=== PATIENT | female | born 1955 | race Caucasian/White ===

== ENCOUNTER 2016-05-02 08:14 | Emergency (ER) | payer OTHER ==
[2016-05-02] MEDS ORDERED: NS 0.9% 1000 ML* 2,000 ML IV ONE (08:38)
[2016-05-02 09:46] LABS: Hematocrit 45 % (35-47); Hemoglobin 15.5 g/dl (12.0-16.0); Mean Corpuscular HGB Conc 34 g/dl (31-36); Mean Corpuscular Hemoglobin 34 pg (27-31); Mean Corpuscular Volume 99 fL (80-97); Mean Platelet Volume 9 um3 (7.4-10.4); Red Blood Count 4.58 10^6/ul (4.0-5.4); Red Cell Distribution Width 12 % (10.5-15); White Blood Count 9.3 10^3/ul (3.5-10.8)
[2016-05-02] MEDS ORDERED: Ondansetron INJ* 2 MG/ML VIAL IV ONE (09:58)
[2016-05-02] MEDS ORDERED: Meclizine TAB* 12.5 MG PO ONE (09:58)
[2016-05-02 10:08] LABS: Albumin 3.7 g/dL (3.2-5.2); BUN/Creatinine Ratio 18.3 (8-20); Calcium 9.7 mg/dL (8.6-10.3); EGFR African American 69.8 (>60); EGFR Non-African American 54.2 (>60); Globulin 3.4 g/dL (2-4); Magnesium 1.9 mg/dL (1.9-2.7); Potassium 3.6 mmol/L (3.5-5.0); Total Bilirubin 0.6 mg/dL (0.2-1.0); Total Protein 7.1 g/dL (6.4-8.9)
[2016-05-02 10:28] LABS: TSH (Thyroid Stimulating Horm) 1.33 mcIU/mL (0.34-5.60)
--- NOTE | 2016-05-02 11:01 | RAD ---
Indication: Cough, fever. Flulike illness 2 weeks ago. COPD. Tobacco use. Comparison: December 08, 2014 and August 13, 2014 chest radiographs. Technique: Upright AP 1010 hours Report: Large body habitus limits image quality. Elevated lung volumes. 3 mm nodule in the periphery of the RIGHT upper lung zone is unchanged compared with the August 13, 2014 exam without concern . No suspicious focal pulmonary lesion, alveolar consolidation, pleural effusion, pneumothorax. Unchanged mild cardiomegaly. Unremarkable central pulmonary vasculature and mediastinal contours. IMPRESSION: Elevated lung volumes favoring chronic obstructive pulmonary disease. Mild cardiomegaly. No acute cardiopulmonary process evident.
[2016-05-02 12:48] LABS: Urine Bilirubin Negative (Negative); Urine Glucose Negative (Negative); Urine Nitrite Negative (Negative)
[2016-05-02 14:15] VITALS: BP 103/61
--- NOTE | 2016-05-02 16:18 | ED ---
Robinson Turner Adam, scribed for Mark Salazar MD on 05/02/16 at 0955 . Dizziness - HPI Summary HPI Summary: Pt is a 60 year old diabetic female presenting with dizziness. She took her insulin at 07:15 this morning and shortly afterwards she began feeling dizzy. She describes the dizziness as a spinning sensation and feeling as if she was going to pass out but she denies LOC. She states that she "felt like she was going to ." The dizziness is worse when she stands up. She is able to walk but she feels very unsteady. 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 She denies ever experiencing dizziness like this before. She states that she felt normal when she woke up this morning prior to taking her insulin. Pt also c/o N/V and cough. She denies CP, SOB, diaphoresis, tinnitus, KINNEY, blurred vision, weakness, and decreased hearing. Pt states that she had the flu several weeks ago. She also notes that she had an eye exam yesterday. Positive tobacco use. She is not on blood-thinners and denies Hx of [place]. - History Of Current Complaint Chief Complaint: EDDizziness Stated Complaint: DIZZINESS Time Seen by Provider: 05/02/16 09:44 Hx Obtained From: Patient Onset/Duration: Still Present Timing: Constant Severity Initially: Moderate Severity Currently: Moderate Character: Room Spinning, Dizzy Aggravating Factor(s): Position Change - Standing up, ambulating, Supine To Erect Alleviating Factor(s): Rest Associated Signs And Symptoms: Positive: Nausea, Vomiting - Allergies/Home Medications Allergies/Adverse Reactions: Allergies Allergy/AdvReac Type Severity Reaction Status Date / Time Aspirin Allergy Mild Unknown Verified 12/14/15 15:48 Reaction Details Camphor [From Vicks Vaporub] Allergy Mild Rash Verified 12/14/15 15:48 Eucalyptus Oil Allergy Mild Rash Verified 12/14/15 15:48 [From Vicks Vaporub] Menthol [From Vicks Vaporub] Allergy Mild Rash Verified 12/14/15 15:48 Vancomycin Allergy Hives Verified 12/14/15 15:48 PMH/Surg Hx/FS Hx/Imm Hx Endocrine/Hematology History: Reports: Hx Diabetes - on lantus Denies: Hx Thyroid Disease Cardiovascular History: Reports: Hx Angina, Hx Hypercholesterolemia, Hx Hypertension Respiratory History: Reports: Hx Asthma, Hx Chronic Obstructive Pulmonary Disease (COPD), Other Respiratory Problems/Disorders - smoker GI History: Reports: Hx Gall Bladder Disease - s/p cholecystectomy, Hx Gastroesophageal Reflux Disease, Other GI Disorders - cholecystectomy Denies: Hx Ulcer History: Reports: Hx Acute Renal Failure, Hx Renal Disease - renal failure in past, Other Problems/Disorders - Chronic Kidney Disease II Musculoskeletal History: Reports: Other Musculoskeletal History - obesity, cellulitis Sensory History: Reports: Hx Contacts or Glasses, Hx Hearing Aid - not with pt Opthamlomology History: Reports: Hx Contacts or Glasses Psychiatric History: Reports: Hx Anxiety, Hx Depression, Hx Inpatient Treatment , Hx Community Mental Health Tx, Hx Bipolar Disorder - Cancer History Hx Chemotherapy: No Hx Radiation Therapy: No - Surgical History Surgery Procedure, Year, and Place: hernia repair, , gall bladder removal Hx Anesthesia Reactions: No - Immunization History Date of Tetanus Vaccine: Up to date Date of Influenza Vaccine: Fall 2012 Infectious Disease History: Yes Infectious Disease History: Reports: 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 area dry Denies: Hx Hepatitis, Hx Human Immunodeficiency Virus (HIV), Traveled Outside the [place] in Last 30 Days - Family History Known Family History: Positive: None, Other - No FMHx of breast cancer Family History: R & n/C - Social History Occupation: Unemployed Lives: Alone Alcohol Use: None Hx Substance Use: No Substance Use Type: Reports: None Hx Tobacco Use: Yes Smoking Status (MU): Light Every Day Tobacco Smoker Type: Cigarettes Amount Used/How Often: 1 pack per day until this year, now only 5 cigarettes per day Length of Time of Smoking/Using Tobacco: 27 years Have You Smoked in the Last Year: Yes Review of Systems Negative: Skin Diaphoresis Negative: Blurred Vision Negative: Chest Pain Positive: Cough. Negative: Shortness Of Breath Positive: Vomiting, Nausea Neurological: Other - Dizziness Negative: Headache, Weakness All Other Systems Reviewed And Are Negative: Yes Physical Exam - Summary Physical Exam Summary: The patient is well-nourished in no acute distress and in no acute pain. The skin is warm and dry and skin color reflects adequate perfusion. HEENT: The head is normocephalic and atraumatic. Nystagmus, more vertical than horizontal. EOMI. The conjunctivae are clear and without drainage. Nares are patent and without drainage. Dry oral mucosa. The external ears are intact. Neck is supple with full range of motion and non-tender. There are no carotid bruits. There is no neck vein distension. Respiratory: Chest is non-tender. Lungs are clear to auscultation and breath sounds are symmetrical and equal. Cardiovascular: Heart is regular rate and rhythm. There is no murmur or rub auscultated. There is no peripheral edema and pulses are symmetrical and equal. Abdomen: The abdomen is soft and non-tender. There are normal bowel sounds heard in all four quadrants and there is no organomegaly palpated. Musculoskeletal: There is no back pain noted. Extremities are non-tender with full range of motion. There is good capillary refill. There is no peripheral edema or calf tenderness elicited. Neurological: Patient is alert and oriented to person, place and time. The patient has symmetrical motor strength in all four extremities. Cranial nerves are grossly intact. Deep tendon reflexes are symmetrical and equal in all four extremities. Psychiatric: The patient has an appropriate affect and does not exhibit any anxiety or depression. Triage Information Reviewed: Yes Vital Signs On Initial Exam: Initial Vitals Temp Pulse Resp BP Pulse Ox 99.1 F 89 16 102/68 96 05/02/16 08:25 05/02/16 08:25 05/02/16 08:25 05/02/16 08:25 05/02/16 08:25 Vital Signs Reviewed: Yes Diagnostics - Vital Signs Vital Signs Temp Pulse Resp BP Pulse Ox 05/02/16 08:25 99.1 F 89 16 102/68 96 - Laboratory Lab Results: Lab Results 05/02/16 Range/Units 09:05 WBC 9.3 (3.5-10.8) 10^3/ul RBC 4.58 (4.0-5.4) 10^6/ul Hgb 15.5 (12.0-16.0) g/dl Hct 45 (35-47) % MCV 99 H (80-97) fL MCH 34 H (27-31) pg MCHC 34 (31-36) g/dl RDW 12 (10.5-15) % Plt Count 179 (150-450) 10^3/ul MPV 9 (7.4-10.4) um3 Neut % (Auto) 61.2 (38-83) % Lymph % (Auto) 29.4 (25-47) % Frio % (Auto) 6.5 (1-9) % Eos % (Auto) 2.3 (0-6) % Baso % (Auto) 0.6 (0-2) % Absolute Neuts (auto) 5.7 (1.5-7.7) 10^3/ul Absolute Lymphs (auto) 2.7 (1.0-4.8) 10^3/ul Absolute Monos (auto) 0.6 (0-0.8) 10^3/ul Absolute Eos (auto) 0.2 (0-0.6) 10^3/ul Absolute Basos (auto) 0.1 (0-0.2) 10^3/ul Absolute Nucleated RBC 0 10^3/ul Nucleated RBC % 0 Result Diagrams: 05/02/16 09:05 05/02/16 09:05 Lab Statement: Any lab studies that have been ordered have been reviewed, and results considered in the medical decision making process. - Radiology CXR Radiology Interpretation Completed By: Radiologist - IMPRESSION: Elevated lung volumes favoring chronic obstructive pulmonary disease. Mild cardiomegaly. No acute cardiopulmonary process evident. - EKG 08:21 Cardiac Rate: NL - 82 BPM EKG Rhythm: Sinus Rhythm EKG Interpretation: No STEMI, poor R wave progression, nonspecific changes - Additional Comments Diagnostic Additional Comments: Troponin I - 0.00 Glucose - 159 Re-Evaluation - Re-Evaluation First Eval Re-Evaluation Time: 13:05 - Patient is feeling much better. Change: Improved Dizzy Course/Dx - Diagnoses Differential Diagnosis/HQI/PQRI: Benign Paroxysmal Positional Vertigo, Hypovolemia, Labyrinthitis, Metabolic Abnormality, Other - yti, pneumonia, mi Provider Diagnoses: Vertigo, Dizziness, Dehydration Discharge - Discharge Plan Condition: Stable Disposition: HOME Prescriptions: Meclizine HCl [Meclizine 25] 25 mg PO QID #30 tab Patient Education Materials: Vertigo (ED), Dizziness (ED), Dehydration (ED) Referrals: Jada Alvarez, FIELD MARKETER [Primary Care Provider] - Additional Instructions: Follow up with Jada Alvarez. The documentation as recorded by the Robinson miramontes Adam accurately reflects the service I personally performed and the decisions made by me, Mark Salazar MD.
== END 2016-05-02 14:10 | disposition home or self-care (01) ==
LOC: ED 08:14
DX: R42 Dizziness and giddiness (principal); E86.0 Dehydration; Z88.6 Allergy status to analgesic agent; E11.9 Type 2 diabetes mellitus without complications; E78.00 Pure hypercholesterolemia, unspecified; I20.9 Angina pectoris, unspecified; I12.9 Hypertensive chronic kidney disease with stage 1 through stage 4 chronic kidney disease, or unspecified chronic kidney disease; N18.2 Chronic kidney disease, stage 2 (mild); E66.9 Obesity, unspecified; F31.9 Bipolar disorder, unspecified; F41.9 Anxiety disorder, unspecified; F17.210 Nicotine dependence, cigarettes, uncomplicated; Z68.31 Body mass index [BMI] 31.0-31.9, adult
CPT/HCPCS: 36415; 71010; 80053; 81003; 83605; 83735; 83880; 84443; 84484; 85025; 93005; A9270-GY; J2405

== ENCOUNTER → 2016-12-29 18:54 | Emergency (ER) | payer OTHER ==
[~2016-12-29 18:54] MED LIST: Albuterol/Ipratropium NEB.SOL* Albuterol 2.5 MG/Ipratropium 0.5 MG 3 ML INH ONE
--- NOTE | 2016-12-29 21:49 | RAD ---
Indication: Cough. 2 views of the chest including dual energy PA views demonstrate no mediastinal shift. Heart is of normal size and configuration. Lungs are clear. When compared to previous exam of May 02, 2016 no significant change is noted. IMPRESSION: No active cardiopulmonary disease is noted.
[2016-12-29 22:05] VITALS: BP 124/59
--- NOTE | 2016-12-31 11:04 | ED ---
Jackson Turner Benjamin, scribed for Seth Sol MD on 12/29/16 at 2034 . Dizziness - HPI Summary HPI Summary: 61yo female c/o having cold like symptoms since yesterday. Pt reports dry cough , and dizziness after coughing. Pt states that she had recent sick contact. Pt has hx of asthma, and uses inhaler, nebulizer at home. Pt is not on O2 at home and while pt is supposed to be using C-pap machine at home, pt states that she hasnt been using it. No swelling in legs. - History Of Current Complaint Chief Complaint: EDDizziness Stated Complaint: DIZZINESS Time Seen by Provider: 12/29/16 19:50 Hx Obtained From: Patient, Family/Operations Administrator Timing: Constant Severity Initially: Mild Severity Currently: Mild Character: Lightheaded, Dizzy Aggravating Factor(s): Nothing Alleviating Factor(s): Nothing Associated Signs And Symptoms: Positive: Chills, Other: - dry cough - Allergies/Home Medications Allergies/Adverse Reactions: Allergies Allergy/AdvReac Type Severity Reaction Status Date / Time Aspirin Allergy Mild Unknown Verified 12/14/15 15:48 Reaction Details Camphor [From Vicks Vaporub] Allergy Mild Rash Verified 12/14/15 15:48 Eucalyptus Oil Allergy Mild Rash Verified 12/14/15 15:48 [From Vicks Vaporub] Menthol [From Vicks Vaporub] Allergy Mild Rash Verified 12/14/15 15:48 Vancomycin Allergy Hives Verified 12/14/15 15:48 PMH/Surg Hx/FS Hx/Imm Hx Endocrine/Hematology History: Reports: Hx Diabetes - on lantus Denies: Hx Thyroid Disease Cardiovascular History: Reports: Hx Angina, Hx Hypercholesterolemia, Hx Hypertension Respiratory History: Reports: Hx Asthma, Hx Chronic Obstructive Pulmonary Disease (COPD), Other Respiratory Problems/Disorders - smoker GI History: Reports: Hx Gall Bladder Disease - s/p cholecystectomy, Hx Gastroesophageal Reflux Disease, Other GI Disorders - cholecystectomy Denies: Hx Ulcer History: Reports: Hx Acute Renal Failure, Hx Renal Disease - renal failure in past, Other Problems/Disorders - Chronic Kidney Disease II Musculoskeletal History: Reports: Other Musculoskeletal History - obesity, cellulitis Sensory History: Reports: Hx Contacts or Glasses, Hx Hearing Aid - not with pt Opthamlomology History: Reports: Hx Contacts or Glasses Psychiatric History: Reports: Hx Anxiety, Hx Depression, Hx Inpatient Treatment , Hx Community Mental Health Tx, Hx Bipolar Disorder - Cancer History Hx Chemotherapy: No Hx Radiation Therapy: No - Surgical History Surgery Procedure, Year, and Place: hernia repair, , gall bladder removal Hx Anesthesia Reactions: No - Immunization History Date of Tetanus Vaccine: Up to date Date of Influenza Vaccine: Fall 2012 Infectious Disease History: No Infectious Disease History: Reports: 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 area dry Denies: Hx Hepatitis, Hx Human Immunodeficiency Virus (HIV), Traveled Outside the [place] in Last 30 Days - Family History Known Family History: Positive: Other - No FMHx of breast cancer - Social History Alcohol Use: None Hx Substance Use: No Substance Use Type: Reports: None Hx Tobacco Use: Yes Smoking Status (MU): Light Every Day Tobacco Smoker Type: Cigarettes Amount Used/How Often: 1 pack per day until this year, now only 5 cigarettes per day Length of Time of Smoking/Using Tobacco: 27 years Have You Smoked in the Last Year: Yes Review of Systems Negative: Fever, Chills Eyes: Negative ENT: Negative Cardiovascular: Negative Positive: Cough Gastrointestinal: Negative Genitourinary: Negative Musculoskeletal: Negative Skin: Negative Neurological: Other - dizziness Psychological: Normal All Other Systems Reviewed And Are Negative: Yes Physical Exam Triage Information Reviewed: Yes Vital Signs On Initial Exam: Initial Vitals Temp Pulse Resp BP Pulse Ox 100.4 F 87 20 132/67 95 12/29/16 19:00 12/29/16 19:00 12/29/16 19:00 12/29/16 19:00 12/29/16 19:00 Vital Signs Reviewed: Yes Appearance: Positive: Well-Appearing, No Pain Distress, Well-Nourished Skin: Positive: Warm, Skin Color Reflects Adequate Perfusion, Dry Head/Face: Positive: Normal Head/Face Inspection Eyes: Positive: Normal ENT: Positive: Normal ENT inspection, Hearing grossly normal Neck: Positive: Supple, Nontender Respiratory/Lung Sounds: Positive: Breath Sounds Present, Wheezes - rare wheezes Cardiovascular: Positive: RRR, Pulses are Symmetrical in both Upper and Lower Extremities Abdomen Description: Positive: Nontender, Soft Bowel Sounds: Positive: Present Musculoskeletal: Positive: Strength/ROM Intact Neurological: Positive: Sensory/Motor Intact, Alert, Oriented to Person Place, Time - [place] Coma Scale Coma Scale Total: 15 Diagnostics - Vital Signs Vital Signs Temp Pulse Resp BP Pulse Ox 12/29/16 20:00 86 138/78 97 12/29/16 19:30 88 120/73 94 12/29/16 19:14 22 12/29/16 19:12 82 95 12/29/16 19:10 128/41 12/29/16 19:00 100.4 F 87 20 132/67 95 - Laboratory Lab Results: Lab Results 12/29/16 Range/Units 20:18 Influenza A (Rapid) Negative (Negative) Influenza B (Rapid) Negative (Negative) Lab Statement: Any lab studies that have been ordered have been reviewed, and results considered in the medical decision making process. - Radiology CXR Xray Interpretation: No Acute Changes Radiology Interpretation Completed By: Radiologist - ED physician has reviewed this radiology report and agrees. Re-Evaluation - Re-Evaluation First Eval Re-Evaluation Time: 21:54 Comment: Reviewed lab and imaging results with the pt. Dizzy Course/Dx - Course Course Of Treatment: Ms. Roy improved here with a duoneb and her CXR was negative. I will treat her for bronchitis with biaxin and medrol. - Diagnoses Provider Diagnoses: Bronchitis Discharge - Discharge Plan Condition: Stable Disposition: HOME Prescriptions: Clarithromycin TAB* [Biaxin TAB*] 500 mg PO BID #20 tab Methylprednisolone [Medrol Dosepak 4 MG*] 4 mg PO .SEE YAEL INSTRUCTION #1 tab Patient Education Materials: Acute Bronchitis (ED) Referrals: Jada Alvarez, CONSTRUCTION EQUIPMENT TECHNICIAN [Primary Care Provider] - 1 Week (FOLLOW UP WITH YOUR DOCTOR IF SYMPTOMS DO NO IMPROVE IN 1 WEEK.) The documentation as recorded by the Jackson miramontes Benjamin accurately reflects the service I personally performed and the decisions made by me, Seth Sol MD.
== END | disposition home or self-care (01) ==
LOC: ED 18:54
DX: J40 Bronchitis, not specified as acute or chronic (principal); R42 Dizziness and giddiness; E11.9 Type 2 diabetes mellitus without complications; I20.9 Angina pectoris, unspecified; Z79.84 Long term (current) use of oral hypoglycemic drugs; I10 Essential (primary) hypertension; E78.00 Pure hypercholesterolemia, unspecified; J44.9 Chronic obstructive pulmonary disease, unspecified; K21.9 Gastro-esophageal reflux disease without esophagitis; N18.2 Chronic kidney disease, stage 2 (mild); F41.9 Anxiety disorder, unspecified; F32.9 Major depressive disorder, single episode, unspecified; Z90.49 Acquired absence of other specified parts of digestive tract; Z86.14 Personal history of Methicillin resistant Staphylococcus aureus infection; Z88.6 Allergy status to analgesic agent; Z88.1 Allergy status to other antibiotic agents; F17.210 Nicotine dependence, cigarettes, uncomplicated
CPT/HCPCS: 71020; 87502; 94640; A9270-GY

== ENCOUNTER 2017-04-02 16:22 | Emergency (ER) | payer OTHER ==
[2017-04-02 16:32] VITALS: BP 136/75
[2017-04-02] MEDS ORDERED: Cephalexin CAP* 500 MG PO ONE (17:34)
[2017-04-02] MEDS ORDERED: Sulfamethox/Trimethoprim DS 800/160* TAB PO ONE (17:34)
--- NOTE | 2017-04-02 17:37 | ED ---
Skin Complaint - HPI Summary HPI Summary: 61F presents with rash for two days. she has history of picking at her lesions. She states two days ago she noticed that spreading redness to the left shoulder. She denies any drainage from the area. She denies any fever. She denies any chest pain, SOB, or abdominal pain. She was going to see her primary today but did not have a ride. She has not taken anything for pain. pain is 4/10. She history of mrsa. She has taken keflex in past. She is diabetic. - History of Current Complaint Chief Complaint: EDExtremityUpper Time Seen by Provider: 04/02/17 17:25 Stated Complaint: LT ARM RED AND SWOLLEN Pain Intensity: 1 - Additional Pertinent History Primary Care Physician: [id number] - Allergy/Home Medications Allergies/Adverse Reactions: Allergies Allergy/AdvReac Type Severity Reaction Status Date / Time Aspirin Allergy Mild Unknown Verified 12/14/15 15:48 Reaction Details Camphor [From Vicks Vaporub] Allergy Mild Rash Verified 12/14/15 15:48 Eucalyptus Oil Allergy Mild Rash Verified 12/14/15 15:48 [From Vicks Vaporub] Menthol [From Vicks Vaporub] Allergy Mild Rash Verified 12/14/15 15:48 Vancomycin Allergy Hives Verified 12/14/15 15:48 PMH/Surg Hx/FS Hx/Imm Hx Endocrine/Hematology History: Reports: Hx Diabetes - on lantus Denies: Hx Thyroid Disease Cardiovascular History: Reports: Hx Angina, Hx Hypercholesterolemia, Hx Hypertension Respiratory History: Reports: Hx Asthma, Hx Chronic Obstructive Pulmonary Disease (COPD), Other Respiratory Problems/Disorders - smoker GI History: Reports: Hx Gall Bladder Disease - s/p cholecystectomy, Hx Gastroesophageal Reflux Disease, Other GI Disorders - cholecystectomy Denies: Hx Ulcer History: Reports: Hx Acute Renal Failure, Hx Renal Disease - renal failure in past, Other Problems/Disorders - Chronic Kidney Disease II Musculoskeletal History: Reports: Other Musculoskeletal History - obesity, cellulitis Sensory History: Reports: Hx Contacts or Glasses, Hx Hearing Aid - not with pt Opthamlomology History: Reports: Hx Contacts or Glasses Psychiatric History: Reports: Hx Anxiety, Hx Depression, Hx Inpatient Treatment , Hx Community Mental Health Tx, Hx Bipolar Disorder - Cancer History Hx Chemotherapy: No Hx Radiation Therapy: No - Surgical History Surgery Procedure, Year, and Place: hernia repair, , gall bladder removal Hx Anesthesia Reactions: No - Immunization History Date of Tetanus Vaccine: Up to date Date of Influenza Vaccine: Fall 2012 Infectious Disease History: No Infectious Disease History: Reports: 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 area dry Denies: Hx Hepatitis, Hx Human Immunodeficiency Virus (HIV), Traveled Outside the [place] in Last 30 Days - Family History Known Family History: Positive: None, Other - No FMHx of breast cancer Family History: R & n/C - Social History Alcohol Use: None Hx Substance Use: No Substance Use Type: Reports: None Hx Tobacco Use: Yes Smoking Status (MU): Light Every Day Tobacco Smoker Type: Cigarettes Amount Used/How Often: 1 pack per day until this year, now only 5 cigarettes per day Length of Time of Smoking/Using Tobacco: 27 years Have You Smoked in the Last Year: Yes Review of Systems Negative: Fever Negative: Chest Pain Negative: Shortness Of Breath Positive: Rash All Other Systems Reviewed And Are Negative: Yes Physical Exam Triage Information Reviewed: Yes Vital Signs On Initial Exam: Initial Vitals Temp Pulse Resp BP Pulse Ox 99 F 93 20 136/75 95 04/02/17 16:28 04/02/17 16:28 04/02/17 16:28 04/02/17 16:28 04/02/17 16:28 Vital Signs Reviewed: Yes Appearance: Positive: Well-Appearing Skin: Positive: Warm, Dry, Other - 2cm by 2cm lesion with 3cm surrounding erythema Head/Face: Positive: Normal Head/Face Inspection Eyes: Positive: Normal, Conjunctiva Clear Respiratory/Lung Sounds: Positive: Clear to Auscultation, Breath Sounds Present Cardiovascular: Positive: Normal, RRR Musculoskeletal: Positive: Strength/ROM Intact - left arm Neurological: Positive: Normal Psychiatric: Positive: Normal Diagnostics - Vital Signs Vital Signs Temp Pulse Resp BP Pulse Ox 04/02/17 16:28 99 F 93 20 136/75 95 - Laboratory Lab Statement: Any lab studies that have been ordered have been reviewed, and results considered in the medical decision making process. Course/Dx - Course Course Of Treatment: 61F presents with rash for two days. she has history of picking at her lesions. She states two days ago she noticed that spreading redness to the left shoulder. She denies any drainage from the area. She denies any fever. She denies any chest pain, SOB, or abdominal pain. She was going to see her primary today but did not have a ride. She has not taken anything for pain. pain is 4/10. She history of mrsa. She has taken keflex in past. on exam has 2cm by 2cm lesion on left shoulder with 3cm of surrounding erythema that is warm to touch. has other lesions on stomach and chest that do not appear infected. will placed on keflex and bactrim due to mrsa history. patient understand and agrees with plan. - Differential Diagnoses - Skin Complaint Differential Diagnoses: Abscess, Cellulitis, Contact Dermatitis - Diagnoses Provider Diagnoses: Cellulitis of left arm Discharge - Discharge Plan Condition: Good Disposition: HOME Prescriptions: Cephalexin CAP* [Keflex CAP*] 500 mg PO TID #29 cap Sulfamethox/Trimethoprim DS* [Bactrim DS 800/160 TAB*] 1 tab PO BID #19 tab Patient Education Materials: Cellulitis (ED) Referrals: Jada Alvarez [facility] [Primary Care Provider] - Additional Instructions: Take Keflex three times a day for 10 days, first dose given in ED Take Bactrim twice a day for 10 days, first dose given in ED Take Tylenol every 6 hours for pain Follow up with primary within 5 days Return to ED if develop fever, area of redness spreads after two days, or any new or worsening symptoms
== END 2017-04-02 19:11 | disposition home or self-care (01) ==
LOC: ED 16:22
DX: L03.114 Cellulitis of left upper limb (principal); R21 Rash and other nonspecific skin eruption; F17.210 Nicotine dependence, cigarettes, uncomplicated; Z86.79 Personal history of other diseases of the circulatory system
CPT/HCPCS: 99282; A9270-GY

== ENCOUNTER 2017-06-08 02:08 | Inpatient (IN) | payer OTHER ==
[2017-06-08 03:49] LABS: ABS Basophils 0 10^3/ul (0-0.2); ABS Eosinophils 0.1 10^3/ul (0-0.6); ABS Lymphocytes 0.8 10^3/ul (1.0-4.8); ABS Monocytes 0.6 10^3/ul (0-0.8); ABS Neutrophils 8.4 10^3/ul (1.5-7.7); ABS Nucleated RBC 0 10^3/ul; Eosinophil % 0.8 % (0-6); Hematocrit 41 % (35-47); Hemoglobin 14.3 g/dl (12.0-16.0); Lymphocyte % 8.2 % (25-47); Mean Corpuscular HGB Conc 35 g/dl (31-36); Mean Corpuscular Hemoglobin 35 pg (27-31); Mean Corpuscular Volume 101 fL (80-97); Mean Platelet Volume 8.7 um3 (7.4-10.4); Nucleated Red Blood Cells % 0; Platelet Count 213 10^3/ul (150-450); Red Blood Count 4.07 10^6/ul (4.0-5.4); Red Cell Distribution Width 12 % (10.5-15); White Blood Count 9.9 10^3/ul (3.5-10.8)
[2017-06-08 03:57] LABS: EGFR Non-African American 62.3 (>60); INR 1.11 (0.77-1.02)
[2017-06-08] MEDS ORDERED: NS 0.9% 1000 ML* 1,000 ML IV ONE ×3 (04:18→10:09)
[2017-06-08] MEDS ORDERED: Insulin REGULAR(*) 1 UNITS UNIT IV PUSH ONE (04:18)
[2017-06-08 06:52] LABS: EGFR Non-African American 57.9 (>60)
[2017-06-08 06:53] LABS: Urine Appearance Clear; Urine Blood Negative (Negative); Urine Color Yellow; Urine Ketones Negative (Negative); Urine Protein 2+(100 mg/dL) (Negative); Urine Specific Gravity 1.022 (1.010-1.030); Urine Urobilinogen Positive (Negative)
[2017-06-08] MEDS ORDERED: cefTRIAXone(*) 1 GM in NS 0.9% 50 ML* 50 ML IVPB ONE (07:19)
[2017-06-08] MEDS ORDERED: MEROPENEM IV ONE (07:45)
[2017-06-08] MEDS ORDERED: Acetaminophen TAB* 325 MG ONE ×2 (07:47→20:10)
[2017-06-08] MEDS ORDERED: Acetaminophen TAB* 325 MG PO ONE (07:48)
[2017-06-08] MEDS ORDERED: DOXYcycline IV* 100 MG in NS 0.9% 250 ML* 250 ML IVPB ONE (07:48)
--- NOTE | 2017-06-08 07:50 | ED ---
Juan Turner Nikita, scribed for Jakob Spain MD on 06/08/17 at 0301 . Dizziness - HPI Summary HPI Summary: This patient is a 61 year old F BIBA to ED with a chief complaint of fatigue and dizziness since 1 day ago. The pt told her neighbor about her sx who proceeded to call EMS. The patient rates the pain 0/10 in severity. Symptoms aggravated by nothing. Symptoms alleviated by nothing. Patient reports decreased appetite, cough, and that she is not taking insulin as well as I should. The patient reports a similar episode previously from not taking her DM medications. The pt has hx of COPD but is not on O2 at home. - History Of Current Complaint Chief Complaint: EDAltMentalStatus Stated Complaint: AMS Hx Obtained From: Patient Onset/Duration: Still Present Timing: Days Severity Currently: None Character: Dizzy Aggravating Factor(s): Nothing Alleviating Factor(s): Nothing Associated Signs And Symptoms: Positive: Other: - Patient reports fatigue, decreased appetite, cough, and that she is not taking insulin as well as I should. - Allergies/Home Medications Allergies/Adverse Reactions: Allergies Allergy/AdvReac Type Severity Reaction Status Date / Time aspirin Allergy See Comment Verified 06/08/17 07:21 camphor [From Vicks Vaporub] Allergy Rash Verified 06/08/17 07:21 eucalyptus Allergy Rash Verified 06/08/17 07:21 [From Vicks Vaporub] menthol [From Vicks Vaporub] Allergy Rash Verified 06/08/17 07:21 petrolatum,white Allergy Rash Verified 06/08/17 07:21 [From Vicks Vaporub] turpentine oil Allergy Rash Verified 06/08/17 07:21 [From Vicks Vaporub] vancomycin Allergy Hives Verified 06/08/17 07:21 PMH/Surg Hx/FS Hx/Imm Hx Endocrine/Hematology History: Reports: Hx Diabetes - on lantus Denies: Hx Thyroid Disease Cardiovascular History: Reports: Hx Angina, Hx Hypercholesterolemia, Hx Hypertension Respiratory History: Reports: Hx Asthma, Hx Chronic Obstructive Pulmonary Disease (COPD), Other Respiratory Problems/Disorders - smoker GI History: Reports: Hx Gall Bladder Disease - s/p cholecystectomy, Hx Gastroesophageal Reflux Disease, Other GI Disorders - cholecystectomy Denies: Hx Ulcer History: Reports: Hx Acute Renal Failure, Hx Renal Disease - renal failure in past, Other Problems/Disorders - Chronic Kidney Disease II Musculoskeletal History: Reports: Other Musculoskeletal History - obesity, cellulitis Sensory History: Reports: Hx Contacts or Glasses, Hx Hearing Aid - not with pt Opthamlomology History: Reports: Hx Contacts or Glasses Psychiatric History: Reports: Hx Anxiety, Hx Depression, Hx Inpatient Treatment , Hx Community Mental Health Tx, Hx Bipolar Disorder - Cancer History Hx Chemotherapy: No Hx Radiation Therapy: No - Surgical History Surgery Procedure, Year, and Place: hernia repair, , gall bladder removal Hx Anesthesia Reactions: No - Immunization History Date of Tetanus Vaccine: Up to date Date of Influenza Vaccine: Fall 2012 Infectious Disease History: No Infectious Disease History: Reports: 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 area dry Denies: Hx Hepatitis, Hx Human Immunodeficiency Virus (HIV), Traveled Outside the in Last 30 Days - Family History Known Family History: Positive: Other - No FMHx of breast cancer Family History: R & n/C - Social History Alcohol Use: None Hx Substance Use: No Substance Use Type: Reports: None Hx Tobacco Use: Yes Smoking Status (MU): Light Every Day Tobacco Smoker Type: Cigarettes Amount Used/How Often: 1 pack per day until this year, now only 5 cigarettes per day Length of Time of Smoking/Using Tobacco: 27 years Have You Smoked in the Last Year: Yes Review of Systems Positive: Fatigue, Other - she is not taking insulin as well as I should Positive: Cough Positive: Other - decreased appetite Neurological: Other - dizziness All Other Systems Reviewed And Are Negative: Yes Physical Exam - Summary Physical Exam Summary: Appearance: Well-appearing, Well-nourished Skin: Warm Eyes: Normal ENT: Dry mucous membranes Neck: Supple, nontender Respiratory: Bilateral expiratory wheezing Cardiovascular: Normal S1, S2. No murmurs. Normal distal pulses in tibial and radial bilaterally. Abdomen: Soft, Sore on the R anterior abdomen, measuring 9 cm long and 2 cm wide ; superficial excoriation with surrounding erythema. No crepitus. No tenderness. Musculoskeletal: Normal, Strength/ROM Intact Neurological: Normal, A&Ox3 Psychiatric: Normal General: No acute distress Triage Information Reviewed: Yes Vital Signs On Initial Exam: Initial Vitals Temp Pulse Resp BP Pulse Ox 99.8 F 102 20 142/61 95 06/08/17 02:11 06/08/17 02:11 06/08/17 02:11 06/08/17 02:11 06/08/17 02:11 Vital Signs Reviewed: Yes Diagnostics - Vital Signs Vital Signs Temp Pulse Resp BP Pulse Ox 06/08/17 02:11 99.8 F 102 20 142/61 95 - Laboratory Lab Results: Lab Results 06/08/17 06/08/17 06/08/17 Range/Units 03:20 03:20 03:20 WBC 9.9 (3.5-10.8) 10^3/ul RBC 4.07 (4.0-5.4) 10^6/ul Hgb 14.3 (12.0-16.0) g/dl Hct 41 (35-47) % MCV 101 H (80-97) fL MCH 35 H (27-31) pg MCHC 35 (31-36) g/dl RDW 12 (10.5-15) % Plt Count 213 (150-450) 10^3/ul MPV 8.7 (7.4-10.4) um3 Neut % (Auto) 84.5 H (38-83) % Lymph % (Auto) 8.2 L (25-47) % [place] % (Auto) 6.3 (0-7) % Eos % (Auto) 0.8 (0-6) % Baso % (Auto) 0.2 (0-2) % Absolute Neuts (auto) 8.4 H (1.5-7.7) 10^3/ul Absolute Lymphs (auto) 0.8 L (1.0-4.8) 10^3/ul Absolute Monos (auto) 0.6 (0-0.8) 10^3/ul Absolute Eos (auto) 0.1 (0-0.6) 10^3/ul Absolute Basos (auto) 0 (0-0.2) 10^3/ul Absolute Nucleated RBC 0 10^3/ul Nucleated RBC % 0 INR (Anticoag Therapy) 1.11 H (0.77-1.02) APTT 31.3 (26.0-36.3) seconds VBG pH (7.33-7.43) VBG pCO2 (41-51) mmHg VBG pO2 (35-45) mmHg VBG HCO3 (24-28) mmol/L VBG O2 Saturation (70-80) % VBG Base Excess (0-4) Sodium 131 L (133-145) mmol/L Potassium 4.0 (3.5-5.0) mmol/L Chloride 103 (101-111) mmol/L Carbon Dioxide 20 L (22-32) mmol/L Anion Gap 8 (2-11) mmol/L BUN 15 (6-24) mg/dL Creatinine 0.92 (0.51-0.95) mg/dL Est GFR ( Amer) 80.1 (>60) Est GFR (Non-Af Amer) 62.3 (>60) BUN/Creatinine Ratio 16.3 (8-20) Glucose 400 H (70-100) mg/dL Lactic Acid (0.5-2.0) mmol/L Calcium 9.5 (8.6-10.3) mg/dL Magnesium 1.5 L (1.9-2.7) mg/dL Total Bilirubin 0.50 (0.2-1.0) mg/dL Direct Bilirubin 0.10 (0.03-0.18) mg/dL Indirect Bilirubin 0.4 (0.3-1.0) mg/dL AST 9 L (13-39) U/L ALT 12 (7-52) U/L Alkaline Phosphatase 78 (34-104) U/L Total Protein 6.9 (6.4-8.9) g/dL Albumin 3.4 (3.2-5.2) g/dL Globulin 3.5 (2-4) g/dL Albumin/Globulin Ratio 1.0 (1-3) Urine Color Urine Appearance Urine pH (5-9) Ur Specific [place] (1.010-1.030) Urine Protein (Negative) Urine Ketones (Negative) Urine Blood (Negative) Urine Nitrate (Negative) Urine Bilirubin (Negative) Urine Urobilinogen (Negative) Ur Leukocyte Esterase (Negative) Urine WBC (Auto) (Absent) Urine RBC (Auto) (Absent) Ur Squamous Epith Cells (Absent) Urine Bacteria (Absent) Urine Glucose (Negative) Urine Ascorbic Acid (Negative) 06/08/17 06/08/17 06/08/17 Range/Units 03:20 03:35 06:04 WBC (3.5-10.8) 10^3/ul RBC (4.0-5.4) 10^6/ul Hgb (12.0-16.0) g/dl Hct (35-47) % MCV (80-97) fL MCH (27-31) pg MCHC (31-36) g/dl RDW (10.5-15) % Plt Count (150-450) 10^3/ul MPV (7.4-10.4) um3 Neut % (Auto) (38-83) % Lymph % (Auto) (25-47) % [place] % (Auto) (0-7) % Eos % (Auto) (0-6) % Baso % (Auto) (0-2) % Absolute Neuts (auto) (1.5-7.7) 10^3/ul Absolute Lymphs (auto) (1.0-4.8) 10^3/ul Absolute Monos (auto) (0-0.8) 10^3/ul Absolute Eos (auto) (0-0.6) 10^3/ul Absolute Basos (auto) (0-0.2) 10^3/ul Absolute Nucleated RBC 10^3/ul Nucleated RBC % INR (Anticoag Therapy) (0.77-1.02) APTT (26.0-36.3) seconds VBG pH 7.38 (7.33-7.43) VBG pCO2 36 L (41-51) mmHg VBG pO2 53 H (35-45) mmHg VBG HCO3 22.1 L (24-28) mmol/L VBG O2 Saturation 92.1 H (70-80) % VBG Base Excess -3.2 L (0-4) Sodium (133-145) mmol/L Potassium (3.5-5.0) mmol/L Chloride (101-111) mmol/L Carbon Dioxide (22-32) mmol/L Anion Gap (2-11) mmol/L BUN (6-24) mg/dL Creatinine (0.51-0.95) mg/dL Est GFR ( Amer) (>60) Est GFR (Non-Af Amer) (>60) BUN/Creatinine Ratio (8-20) Glucose (70-100) mg/dL Lactic Acid 1.2 (0.5-2.0) mmol/L Calcium (8.6-10.3) mg/dL Magnesium (1.9-2.7) mg/dL Total Bilirubin (0.2-1.0) mg/dL Direct Bilirubin (0.03-0.18) mg/dL Indirect Bilirubin (0.3-1.0) mg/dL AST (13-39) U/L ALT (7-52) U/L Alkaline Phosphatase (34-104) U/L Total Protein (6.4-8.9) g/dL Albumin (3.2-5.2) g/dL Globulin (2-4) g/dL Albumin/Globulin Ratio (1-3) Urine Color Yellow Urine Appearance Clear Urine pH 6.0 (5-9) Ur Specific [place] 1.022 (1.010-1.030) Urine Protein 2+(100 mg/dl) A (Negative) Urine Ketones Negative (Negative) Urine Blood Negative (Negative) Urine Nitrate Negative (Negative) Urine Bilirubin Negative (Negative) Urine Urobilinogen Positive A (Negative) Ur Leukocyte Esterase Negative (Negative) Urine WBC (Auto) Absent (Absent) Urine RBC (Auto) 1+(3-5/hpf) A (Absent) Ur Squamous Epith Cells Present A (Absent) Urine Bacteria Absent (Absent) Urine Glucose 3+(>=500 mg/dl) A (Negative) Urine Ascorbic Acid * A (Negative) 06/08/17 Range/Units 06:18 WBC (3.5-10.8) 10^3/ul RBC (4.0-5.4) 10^6/ul Hgb (12.0-16.0) g/dl Hct (35-47) % MCV (80-97) fL MCH (27-31) pg MCHC (31-36) g/dl RDW (10.5-15) % Plt Count (150-450) 10^3/ul MPV (7.4-10.4) um3 Neut % (Auto) (38-83) % Lymph % (Auto) (25-47) % [place] % (Auto) (0-7) % Eos % (Auto) (0-6) % Baso % (Auto) (0-2) % Absolute Neuts (auto) (1.5-7.7) 10^3/ul Absolute Lymphs (auto) (1.0-4.8) 10^3/ul Absolute Monos (auto) (0-0.8) 10^3/ul Absolute Eos (auto) (0-0.6) 10^3/ul Absolute Basos (auto) (0-0.2) 10^3/ul Absolute Nucleated RBC 10^3/ul Nucleated RBC % INR (Anticoag Therapy) (0.77-1.02) APTT (26.0-36.3) seconds VBG pH (7.33-7.43) VBG pCO2 (41-51) mmHg VBG pO2 (35-45) mmHg VBG HCO3 (24-28) mmol/L VBG O2 Saturation (70-80) % VBG Base Excess (0-4) Sodium 134 (133-145) mmol/L Potassium 3.8 (3.5-5.0) mmol/L Chloride 105 (101-111) mmol/L Carbon Dioxide 22 (22-32) mmol/L Anion Gap 7 (2-11) mmol/L BUN 14 (6-24) mg/dL Creatinine 0.98 H (0.51-0.95) mg/dL Est GFR ( Amer) 74.5 (>60) Est GFR (Non-Af Amer) 57.9 (>60) BUN/Creatinine Ratio 14.3 (8-20) Glucose 265 H (70-100) mg/dL Lactic Acid (0.5-2.0) mmol/L Calcium 9.2 (8.6-10.3) mg/dL Magnesium (1.9-2.7) mg/dL Total Bilirubin (0.2-1.0) mg/dL Direct Bilirubin (0.03-0.18) mg/dL Indirect Bilirubin (0.3-1.0) mg/dL AST (13-39) U/L ALT (7-52) U/L Alkaline Phosphatase (34-104) U/L Total Protein (6.4-8.9) g/dL Albumin (3.2-5.2) g/dL Globulin (2-4) g/dL Albumin/Globulin Ratio (1-3) Urine Color Urine Appearance Urine pH (5-9) Ur Specific [place] (1.010-1.030) Urine Protein (Negative) Urine Ketones (Negative) Urine Blood (Negative) Urine Nitrate (Negative) Urine Bilirubin (Negative) Urine Urobilinogen (Negative) Ur Leukocyte Esterase (Negative) Urine WBC (Auto) (Absent) Urine RBC (Auto) (Absent) Ur Squamous Epith Cells (Absent) Urine Bacteria (Absent) Urine Glucose (Negative) Urine Ascorbic Acid (Negative) Result Diagrams: 06/08/17 03:20 06/08/17 06:18 Lab Statement: Any lab studies that have been ordered have been reviewed, and results considered in the medical decision making process. - Radiology CXR Radiology Interpretation Completed By: ED Physician - Bilateral pulmonary congestion. Questionable infiltrate in R lower region. Poor inspiratory effort. - EKG 0314 Cardiac Rate: NL EKG Rhythm: Sinus Rhythm - 99 bpm; prolonged QTc 507; non-specific T wave changes Dizzy Course/Dx - Course Assessment/Plan: pt seen to be febrile on rectal temp in context of possible R sided infiltrate at the base. Admitted for likely pneumonia and for further IV abx therapy. - Diagnoses Provider Diagnoses: Pneumonia, Abnormal QT interval present on electrocardiogram - Provider Notifications Discussed Care Of Patient With: Kathy Moseley Time Discussed With Above Provider: 07:45 Instructed by Provider To: Admit As Inpatient Discharge - Sign-Out/Discharge Documenting (check all that apply): Discharge - Discharge Plan Condition: Stable Disposition: ADMITTED TO [facility] Referrals: Jada Alvarez, [employer]PERVISOR [Primary Care Provider] - - Billing Disposition and Condition Condition: STABLE [place] [facility] [place] The documentation as recorded by the Juan miramontes Nikita accurately reflects the service I personally performed and the decisions made by Grabiel newberry Dong, MD.
[2017-06-08] MEDS ORDERED: cefTRIAXone 1000 MG SYRINGE IVPB ONCE IVPB ONE ×2 (08:00)
--- NOTE | 2017-06-08 08:13 | RAD ---
HISTORY: Cough COMPARISONS: December 29, 2016 VIEWS: 1: frontal portable view of the chest at 3:10 AM FINDINGS: LINES AND TUBES: None. CARDIOMEDIASTINAL SILHOUETTE: The cardiomediastinal silhouette is normal for portable technique. PLEURA: The costophrenic angles are sharp. No pleural abnormalities are noted. LUNG PARENCHYMA: There is patchy alveolar opacification of the lung bases bilaterally. ABDOMEN: The upper abdomen is clear. There is no subphrenic gas. BONES AND SOFT TISSUES: No bone or soft tissue abnormalities are noted. IMPRESSION: PATCHY BIBASILAR ATELECTASIS VERSUS CONSOLIDATION.
[2017-06-08] MEDS ORDERED: Al Hydrox/Mg Hydrox/Simet LIQ* 30 ML UDC PO PRN (08:59)
[2017-06-08] MEDS ORDERED: Albuterol 2.5 MG/3 ML NEB.SOL* (0.083%) INH PRN (08:59)
--- NOTE | 2017-06-08 09:07 | ED ---
Progress - Progress Note Progress Note: Patient's final chest x-ray read buy radiologist reports "patchy bibasilar atelectasis versus consolidation". Provider's wet read is comparable. Patient admitted. No further action at this time. Course/Dx - Diagnoses Provider Diagnoses: Pneumonia, Abnormal QT interval present on electrocardiogram - Provider Notifications Time Discussed With Above Provider: 07:45 Instructed by Provider To: Admit As Inpatient Discharge - Sign-Out/Discharge Documenting (check all that apply): Post-Discharge Follow Up - Discharge Plan Condition: Stable Disposition: ADMITTED TO [facility] Referrals: Jada Alvarez NP [Primary Care Provider] - - Billing Disposition and Condition Condition: STABLE Disposition: [facility] [place]
--- NOTE | 2017-06-08 09:46 | RAD ---
INDICATION: Delirium COMPARISON: None TECHNIQUE: Noncontrast axial source images were acquired from the skull base to the vertex. FINDINGS: Ventricles/sulci: The ventricles and cisterns are normal in size and configuration for age. Brain parenchyma: There is minor periventricular and subcortical white matter change compatible with chronic ischemia. Intracranial hemorrhage:None. Extra-axial spaces: There are no abnormal extra axial fluid collections or evidence of extra-axial mass. Calvarium: There is no calvarial fracture or other calvarial abnormality. Scalp: There is no evidence of scalp or extracalvarial soft tissue abnormality. Paranasal sinuses/mastoid: The paranasal sinuses and mastoid air cells are clear. Other: None. IMPRESSION: No acute intracranial findings.
[2017-06-08] MEDS ORDERED: Lidocaine 1%* 5 ML VIAL INJ ONE (10:20)
[2017-06-08] MEDS ORDERED: Lidocaine 1%* 5 ML VIAL ONE (10:29)
--- NOTE | 2017-06-08 11:40 | ED ---
Progress - Progress Note Progress Note: ASKED BY ADMITTING HOSPITALIST TO OBTAIN CSF. DISCUSSED RISKS AND BENEFITS OF LUMBAR PUNCTURE WITH PATIENT. SHE AGREED TO THE LP AND SIGNED THE CONSENT FORM. Course/Dx - Course Course Of Treatment: PREPPED WITH BETADINE IN LEFT LATERAL POSITION. 1% LIDOCAINE USED. CSF ATTAINED ON SECOND ATTEMPT IN SAME INTERSPACE. CSP SENT TO LAB. PATIENT RESTING ON BACK, TOLERATED THE PROCEEDURE WELL. - Diagnoses Provider Diagnoses: Pneumonia, Abnormal QT interval present on electrocardiogram, Fever, Altered mental state - Provider Notifications Time Discussed With Above Provider: 07:45 Instructed by Provider To: Admit As Inpatient Discharge - Sign-Out/Discharge Documenting (check all that apply): Discharge - ADMIT HOSPITALIST - Discharge Plan Condition: Stable Disposition: ADMITTED TO [facility] - Billing Disposition and Condition Condition: STABLE Disposition: [facility] [place]
--- NOTE | 2017-06-08 11:43 | HP ---
CC: Jada Alvarez NP * HISTORY AND PHYSICAL: DATE OF ADMISSION: 06/08/17 TIME OF ADMISSION: 9 a.m. CHIEF COMPLAINT: "I was sick." HISTORY OF PRESENT ILLNESS: This is a 61-year-old female with history of diabetes who presents from home where her neighbor called EMS. Her neighbor is not here and and I have no account of what reason her neighbor called EMS. The phone numbers on the chart are disconnected. Ms. Roy is unable to provide very much history. However, when asked where she is, she does say that she is in the hospital and she states that she is here because she has been sick. She is unable to define any symptoms she has had over the past week, although she does denies headache, shortness of breath, cough, dysuria, diarrhea , dental pain, nausea, vomiting, abdominal pain, or chest pain. She denies alcohol abuse, IV drug abuse, or taking any extra of her medications intentionally. I have tried to reach the next of kin listed in the chart Jose Valencia at the listed phone number of [phone] and this is not a working number. PAST MEDICAL HISTORY: Per [place]'s report she has diabetes. She thinks she has a "heart problem," but is unsure what it is. HOME MEDICATIONS: As per the ED medication reconciliation; 1. Albuterol 2 puffs q. 4 p.r.n. 2. Bupropion 450 mg daily. 3. Calcium and vitamin D. 4. Vitamin B12 of 2500 mcg daily. 5. Colace 100 mg daily. 6. Lexapro 30 mg daily. 7. Advair 500/50 one puff b.i.d. 8. Lasix 20 mg daily. 9. Gabapentin 600 mg daily. 10. Glipizide 5 mg daily. 11. Lantus 50 units daily. 12. Ipratropium 2 puffs t.i.d. 13. Victoza 1.2 mg daily. 14. Lisinopril 2.5 mg daily. 15. Loratadine 10 mg daily. 16. Latuda 40 mg daily. 17. Metformin 1000 mg daily. 18. Nicotine patch 21 mg daily. 19. Omeprazole 20 mg daily. 20. Ranitidine 150 mg daily. 21. Simvastatin 40 mg daily. 22. Topamax 100 mg b.i.d. 23. Trazodone 100 mg b.i.d. and 200 mg at bedtime. SOCIAL HISTORY: She can tell me that she lives alone. She smokes several cigarettes per day and she denies alcohol or illicit drug abuse. She is unemployed. REVIEW OF SYSTEMS: As per the HPI, otherwise negative. PHYSICAL EXAMINATION GENERAL: Drowsy female who appears her stated age in no distress. She arouses to voice and follows simple commands but falls asleep frequently during my exam. She is oriented to person and that she is in a hospital, but cannot tell me the location or the date. VITAL SIGNS: Temperature 104.1 rectally, heart rate 99, respiratory rate 22, pulse ox 96% on room air, blood pressure 112/65. HEENT: Pupils are 3 mm bilateral and reactive to light. Her oral mucosa is extremely dry. She has some pharyngeal erythema. No exudates. NECK: No nuchal rigidity. No cervical lymphadenopathy. No JVP. LUNGS: With scattered end expiratory wheezes. No rhonchi or rales. CHEST: Tachycardic. No murmurs. PMI nondisplaced. ABDOMEN: She has a superficial 3-inch excoriation on the right mid abdomen that is erythematous but without drainage or surrounding erythema. Her abdomen is diffusely nontender to palpation. She has a negative Mason's sign. Her liver is nonpalpable. She has no guarding or rebound. EXTREMITIES: She has some chronic venous stasis changes on her distal lower extremities. No rashes or ulcers. Her feet are dry but has no breaks in the skin. NEUROLOGIC: Her strength is 5/5 in all extremities. I am unable to test sensation due to poor cooperation. I am unable to test her coordination at this time. LABORATORY DATA: White blood cells 9.9, hemoglobin 14.3, platelets 213. INR 1.1. VBG 7.38, pCO2 of 36. Sodium 134, potassium 3.8, chloride 108, creatinine 0.98, glucose 265, lactate 1.2, magnesium 1.5. LFTs are within normal limits. IMAGING: Chest x-ray, bibasilar atelectasis versus consolidation. EKG shows normal sinus rhythm with abnormal axis of her long QTc at 507. T-wave flattening in leads III and aVF and V2 to V4. ASSESSMENT AND PLAN: This is a 61-year-old female with history of diabetes and presumably other medical issues based on her medication reconciliation, presents with fever and confusion. 1. Sepsis. She received ceftriaxone and doxycycline in the emergency department for presumed community-acquired pneumonia; however, since she is unable to give me an adequate history and clinically does not have a very convincing pneumonia, I am checking a lumbar puncture. She should be considered somewhat immunosuppressed due to her poorly controlled diabetes. I have discussed this with the emergency department and they will attempt an LP now. After the LP is completed, I will broaden her antibiotic coverage to treat meningitis as well as pneumonia. She received 2 L of IV fluid bolus in the emergency department and I am starting another liter and then continuing IV fluids at 200 cc per hour for volume resuscitation. Blood cultures have been sent. I will check sputum cultures as well. 2. Delirium, likely secondary to this infectious source; however, I am checking a salicylates, EtOH, and acetaminophen level and a CT head now. 3. Other medical history. Based on her medical reconciliation, she does indeed have other medical history besides diabetes, which is the only thing she can name for me at this point. I am requesting her most recent PCP notes and continuing her home meds as reconciled by the emergency department escept the few with sedating potential. I've requested a med list from [facility]. She is on an antipsychotic, so it would be helpful to find family to understand her baseline mental status. 4. Social work consult for finding family. 5. Disposition. Admit to the hospitalist service after the LP has performed in the emergency department. She is full code for now and I will attempt to reach her family today. [id number]/[facility] #: [id number] [facility]
[2017-06-08] MEDS: NS 0.9% 1000 ML* 1,000 ML IV SCH ×2 (12:38→20:33)
[2017-06-08] MEDS: Enoxaparin(*) 40 MG/0.4 ML SYR SUBCUT SCH (12:38)
[2017-06-08] MEDS ORDERED: Dextrose 50% Syringe 50 ML* 25 GM/50 ML SYRINGE IV PUSH PRN (14:46)
[2017-06-08] MEDS ORDERED: Furosemide TAB* 20 MG PO PRN (14:47)
[2017-06-08] MEDS ORDERED: Docusate CAP* 100 MG PO PRN (14:47)
--- NOTE | 2017-06-08 15:23 | PN ---
Hospitalist Progress Note Date of Service: 06/08/17 CSF fluid returned with elevated protein and elevated glucose. Elevated glucose can be explained by her elevated serum glucose, but the elevated protein may suggest viral encephalitis/meningitis or aseptic meningitis. I am treating empirically for acyclovir and will add on hsv pcr to the csf fluid cultures. In reviewing her med rec, polypharmacy, serotonin syndrome, and anitcholinergic side effects should also be considered on the differential. She does not meet criteria for serotonin syndrome.
[2017-06-08] MEDS ORDERED: Zosyn per Pharmacy* NOTE FOLLOW UP PRN (15:58)
[2017-06-08] MEDS ORDERED: Vancomycin(*) 1,000 MG in NS 0.9% 250 ML* 250 ML IVPB SCH (16:00)
[2017-06-08] MEDS ORDERED: Cefepime 1 GM in Dextrose(*) 1 GM/50 ML BAG IV SCH (16:00)
[2017-06-08] MEDS ORDERED: PIPERACILLIN IVPB ONE (17:00)
[2017-06-08] MEDS ORDERED: TAZOBACTAM IVPB ONE (17:00)
[2017-06-08] MEDS ORDERED: ZOSYN 3.375 GM x ONE DOSE over 30 miuntes IVPB ×2 (17:00)
[2017-06-08] MEDS ORDERED: D5W IVPB ONE (17:00)
[2017-06-08] MEDS: ACYCLOVIR IVPB SCH ×2 (17:25→23:39)
[2017-06-08] MEDS: NS 0.9% IVPB SCH ×2 (17:25→23:39)
[2017-06-08] MEDS: Insulin LISPRO* 1 UNITS UNIT SUBCUT SCH ×2 (18:26→20:28)
[2017-06-08] MEDS: Albuterol HFA INHALER* 8 gm MDI INH PRN (19:38)
[2017-06-08] MEDS: Mometasone/Formoter 200/5 MDI INH SCH (19:39)
[2017-06-08] MEDS: Insulin GLARGINE(*) 1 UNITS UNIT SUBCUT SCH (20:12)
[2017-06-08] MEDS ORDERED: Ibuprofen TAB* 400 MG PO PRN (22:55)
[2017-06-09] MEDS: Piperacillin/Tazobactam 13.5 GM IV 24 hour continuous infusion IVPB SCH ×2 (01:15)
[2017-06-09] MEDS: NS 0.9% 1000 ML* 1,000 ML IV SCH ×4 (03:17→23:37)
[2017-06-09] MEDS ORDERED: Vancomycin per Pharmacy* NOTE FOLLOW UP PRN ×2 (06:19→23:28)
[2017-06-09] MEDS ORDERED: Vancomycin 1500 MG IV - x ONCE IVPB ONE ×2 (06:30)
[2017-06-09 07:48] LABS: ABS Basophils 0 10^3/ul (0-0.2); ABS Eosinophils 0.1 10^3/ul (0-0.6); ABS Monocytes 0.7 10^3/ul (0-0.8); ABS Neutrophils 4.5 10^3/ul (1.5-7.7); ABS Nucleated RBC 0 10^3/ul; Eosinophil % 1.9 % (0-6); Hematocrit 39 % (35-47); Hemoglobin 13.6 g/dl (12.0-16.0); Lymphocyte % 16.3 % (25-47); Mean Corpuscular HGB Conc 35 g/dl (31-36); Mean Corpuscular Hemoglobin 35 pg (27-31); Mean Corpuscular Volume 101 fL (80-97); Mean Platelet Volume 8.5 um3 (7.4-10.4); Nucleated Red Blood Cells % 0; Platelet Count 157 10^3/ul (150-450); Red Blood Count 3.89 10^6/ul (4.0-5.4); Red Cell Distribution Width 13 % (10.5-15); White Blood Count 6.4 10^3/ul (3.5-10.8)
[2017-06-09 08:06] LABS: EGFR Non-African American 69.2 (>60)
[2017-06-09] MEDS: Albuterol HFA INHALER* 8 gm MDI INH PRN (08:35)
[2017-06-09] MEDS: Mometasone/Formoter 200/5 MDI INH SCH ×2 (08:35→20:34)
[2017-06-09] MEDS: Insulin LISPRO* 1 UNITS UNIT SUBCUT SCH ×4 (10:47→20:23)
[2017-06-09] MEDS: Linezolid 600 MG IVPREMIX(*) 600 MG/300 ML BAG IVPB SCH ×2 (10:47→19:55)
[2017-06-09] MEDS: Gabapentin CAP(*) 300 MG PO SCH (10:48)
[2017-06-09] MEDS: BuPROPion XL* 300 MG TAB.XL PO SCH (10:48)
[2017-06-09] MEDS: Nicotine PATCH 21 MG/24 HR* PATCH TRANSDERM SCH (10:48)
[2017-06-09] MEDS: Lurasidone(*) 40 MG TAB PO SCH (10:48)
[2017-06-09] MEDS: Enoxaparin(*) 40 MG/0.4 ML SYR SUBCUT SCH (10:48)
[2017-06-09] MEDS: ACYCLOVIR IVPB SCH ×2 (12:30→17:37)
[2017-06-09] MEDS: NS 0.9% IVPB SCH ×2 (12:30→17:37)
[2017-06-09] MEDS: Insulin GLARGINE(*) 1 UNITS UNIT SUBCUT SCH (20:21)
[2017-06-09] MEDS: Nicotine Patch Removal NOTE PATCH OFF SCH (23:03)
--- NOTE | 2017-06-09 23:06 | PN ---
Subjective Date of Service: 06/09/17 Interval History: . Interviewed and examined patient at bedside; Discussed case with Dr. Moseley; Reviewed previous notes and radiology results; Patient more lucid today than she was yesterday. On ABX, tolerating well. Treated empirically for viral encephalitis/meningitis or aseptic meningitis Family History: Unchanged from Admission Social History: Unchanged from Admission Past Medical History: Unchanged from Admission Objective Active Medications: . Acetaminophen (Tylenol Tab*) 650 mg PO Q6H PRN PRN Reason: FEVER/PAIN Al Hydrox/Mg Hydrox/Simethicone (Maalox Plus*) 30 ml PO Q6H PRN PRN Reason: INDIGESTION Albuterol (Ventolin 2.5 Mg/3 Ml Neb.Roseann*) 2.5 mg INH [id number] AWAKE PRN PRN Reason: sob/wheezing Albuterol (Ventolin Hfa Inhaler*) 2 puff INH Q4HR PRN PRN Reason: SHORTNESS OF BREATH Last Admin: 06/09/17 08:35 Dose: 2 puff Bupropion HCl (Bupropion Xl*) 300 mg PO DAILY [facility] Last Admin: 06/09/17 10:48 Dose: 300 mg Dextrose (D50w Syringe 50 Ml*) 12.5 gm IV PUSH .FOR FS < 60 - SS PRN PRN Reason: FS < 60 Docusate Sodium (Colace Cap*) 100 mg PO DAILY PRN PRN Reason: CONSTIPATION Enoxaparin Sodium (Lovenox(*)) 40 mg SUBCUT Q24H [facility] Last Admin: 06/09/17 10:48 Dose: 40 mg Furosemide (Lasix Tab*) 20 mg PO DAILY PRN PRN Reason: PER PROTOCOL Gabapentin (Neurontin Cap(*)) 600 mg PO DAILY [facility] Last Admin: 06/09/17 10:48 Dose: 600 mg Sodium Chloride (Ns 0.9% 1000 Ml*) 1,000 mls @ 200 mls/hr IV PER RATE [facility] Last Admin: 06/09/17 17:36 Dose: 200 mls/hr Acyclovir Sodium 616 mg/ (Sodium Chloride) 112.32 mls @ 112.32 mls/hr IVPB Q8H [facility] Last Admin: 06/09/17 17:37 Dose: 112.32 mls/hr Piperacillin Sod/Tazobactam (Sod 13.5 gm/ Sodium Chloride) 500 mls @ 20.833 mls /hr IVPB Q24H [facility] Last Admin: 06/09/17 01:15 Dose: 20.833 mls/hr Linezolid (Zyvox 600 Mg Ivpremix(*)) 600 mg in 300 mls @ 300 mls/hr IVPB Q12H [facility] Last Admin: 06/09/17 19:55 Dose: 300 mls/hr Ibuprofen (Motrin Tab*) 400 mg PO Q6H PRN PRN Reason: fever/pain Last Admin: 06/08/17 23:43 Dose: 400 mg Insulin Glargine (Lantus(*)) 50 units SUBCUT Q24H [facility] Last Admin: 06/09/17 20:21 Dose: 50 units Insulin Human Lispro (Humalog*) 0 units SUBCUT ACHS [facility] PRN Reason: Protocol Last Admin: 06/09/17 20:23 Dose: 9 unit Lurasidone HCl (Latuda) 40 mg PO DAILY [facility] Last Admin: 06/09/17 10:48 Dose: 40 mg Mometasone Furoate/Formoterol Fumar (Dulera 200/5 Mdi*) 2 puff INH BID [facility] Last Admin: 06/09/17 20:34 Dose: 2 puff Nicotine (Nicotine Patch 21 Mg/24 Hr*) 1 patch TRANSDERM DAILY [facility] Last Admin: 06/09/17 10:48 Dose: 1 patch Pharmacy Consult (Zosyn Per Pharmacy*) 1 note FOLLOW UP . PRN PRN Reason: PER PROTOCOL Pharmacy Profile Note (Nicotine Patch Removal Note*) 1 note PATCH OFF 2100 [facility] Vital Signs - 8 hr 06/09/17 06/09/17 15:51 20:36 Temperature 99.4 F Pulse Rate 79 81 Respiratory 16 14 Rate Blood Pressure 141/66 (mmHg) O2 Sat by Pulse 99 99 Oximetry Oxygen Devices in Use Now: None Appearance: NAD Eyes: No Scleral Icterus Ears/Nose/Mouth/Throat: NL Teeth, Lips, Gums Neck: NL Appearance and Movements; NL JVP Respiratory: Symmetrical Chest Expansion and Respiratory Effort Cardiovascular: NL Sounds; No Murmurs; No JVD Abdominal: NL Sounds; No Tenderness; No Distention, - - ant abd wall wond noted. Lymphatic: No Cervical Adenopathy Extremities: No Edema Skin: No Rash or Ulcers, - - ant abd wall wound noted Neurological: Alert and Oriented x 3 Lines/Tubes/Other Access: Clean, Dry and Intact Peripheral IV Nutrition: Taking PO's Result Diagrams: 06/09/17 07:30 06/09/17 07:30 Additional Lab and Data: . Microbiology and Other Data: Microbiology 06/08/17 11:20 CSF Gram Stain (Tube 3) - Final Cerebral Spinal Fluid CSF Culture - Preliminary No Growth Day 1 06/08/17 21:50 Nasal Screen MRSA (PCR)([facility]) - Final Nasal Mrsa Detected Assess/Plan/Problems-Billing . Assessment: 61 yo female with DM-II, obesity, and likely COPD now with encephalopathy most likely due to either viral encephalitis/meningitis or aseptic meningitis, OR worsening anterior abd wall wound and related sepsis. . - Patient Problems (1) Wound cellulitis Current Visit: Yes Status: Acute Code(s): L03.90 - CELLULITIS, UNSPECIFIED SNOMED Code(s): 880993454 Comment: - piperacillin/tazo; - vancomycin (unclear h/o hives --> willing to restart) - wound consult. (2) MRSA (methicillin resistant staph aureus) culture positive Current Visit: Yes Status: Acute Priority: High Code(s): Z22.322 - CARRIER OR SUSPECTED CARRIER OF METHICILLIN RESIS STAPH Comment: - BCX + MRSA --> increases likelihood of MRSA wound infection. - start vanco; d/w pharmacy. (3) History of COPD Current Visit: No Status: Chronic Priority: Medium Code(s): Z87.09 - PERSONAL HISTORY OF OTHER DISEASES OF THE RESPIRATORY SYSTEM Comment: - continue outpatient regimen (4) Insulin dependent type 2 diabetes mellitus Current Visit: No Status: Chronic Priority: Medium Code(s): E11.9 - TYPE 2 DIABETES MELLITUS WITHOUT COMPLICATIONS; Z79.4 - JAIL (CURRENT) USE OF INSULIN (5) Uncontrolled insulin dependent diabetes mellitus Current Visit: No Status: Chronic Priority: High Code(s): E11.65 - TYPE 2 DIABETES MELLITUS WITH HYPERGLYCEMIA; Z79.4 - BRANCH OFFICER (CURRENT) USE OF INSULIN Comment: - check A1C
[2017-06-09] MEDS: Acetaminophen TAB* 325 MG PO PRN (23:16)
[2017-06-09] MEDS ORDERED: Vancomycin(*) 1,500 MG in NS 0.9% 250 ML* 250 ML IVPB ONE (23:45)
[2017-06-09] MEDS ORDERED: Vancomycin(*) 1,000 MG in NS 0.9% 250 ML* 250 ML IVPB SCH (23:45)
[2017-06-10] MEDS: ACYCLOVIR IVPB SCH ×2 (02:14→08:52)
[2017-06-10] MEDS: NS 0.9% IVPB SCH ×2 (02:14→08:52)
[2017-06-10] MEDS: Piperacillin/Tazobactam 13.5 GM IV 24 hour continuous infusion IVPB SCH ×2 (05:04)
[2017-06-10] MEDS: NS 0.9% 1000 ML* 1,000 ML IV SCH (05:04)
[2017-06-10] MEDS: Acetaminophen TAB* 325 MG PO PRN ×2 (06:01→16:12)
[2017-06-10] MEDS: Albuterol HFA INHALER* 8 gm MDI INH PRN ×2 (06:47→22:08)
[2017-06-10] MEDS: Mometasone/Formoter 200/5 MDI INH SCH ×2 (07:52→19:28)
[2017-06-10] MEDS ORDERED: Vancomycin(*) 1,000 MG in NS 0.9% 250 ML* 250 ML IVPB SCH (08:00)
[2017-06-10] MEDS: Insulin LISPRO* 1 UNITS UNIT SUBCUT SCH ×4 (08:54→21:43)
[2017-06-10] MEDS ORDERED: NS 0.9% 250 ML* 250 ML ONE (10:26)
[2017-06-10] MEDS: Gabapentin CAP(*) 300 MG PO SCH (10:37)
[2017-06-10] MEDS: Lurasidone(*) 40 MG TAB PO SCH (10:37)
[2017-06-10] MEDS: Enoxaparin(*) 40 MG/0.4 ML SYR SUBCUT SCH (10:40)
[2017-06-10] MEDS: BuPROPion XL* 300 MG TAB.XL PO SCH (10:40)
[2017-06-10] MEDS: Nicotine PATCH 21 MG/24 HR* PATCH TRANSDERM SCH (10:41)
[2017-06-10] MEDS ORDERED: Insulin GLARGINE(*) 1 UNITS UNIT SUBCUT ONE (12:39)
--- NOTE | 2017-06-10 13:06 | PN ---
Subjective Date of Service: 06/10/17 Interval History: No new c/o. Appetite OK. No bowel c/o. No pain. She states she gives herself Lantus at home in the AM. Family History: Unchanged from Admission Social History: Unchanged from Admission Past Medical History: Unchanged from Admission Objective Active Medications: Acetaminophen (Tylenol Tab*) 650 mg PO Q6H PRN PRN Reason: FEVER/PAIN Last Admin: 06/10/17 06:01 Dose: 650 mg Al Hydrox/Mg Hydrox/Simethicone (Maalox Plus*) 30 ml PO Q6H PRN PRN Reason: INDIGESTION Albuterol (Ventolin 2.5 Mg/3 Ml Neb.Roseann*) 2.5 mg INH [id number] AWAKE PRN PRN Reason: sob/wheezing Albuterol (Ventolin Hfa Inhaler*) 2 puff INH Q4HR PRN PRN Reason: SHORTNESS OF BREATH Last Admin: 06/10/17 06:47 Dose: 2 puff Bupropion HCl (Bupropion Xl*) 300 mg PO DAILY [facility] Last Admin: 06/10/17 10:40 Dose: 300 mg Dextrose (D50w Syringe 50 Ml*) 12.5 gm IV PUSH .FOR FS < 60 - SS PRN PRN Reason: FS < 60 Docusate Sodium (Colace Cap*) 100 mg PO DAILY PRN PRN Reason: CONSTIPATION Enoxaparin Sodium (Lovenox(*)) 40 mg SUBCUT Q24H [facility] Last Admin: 06/10/17 10:40 Dose: 40 mg Furosemide (Lasix Tab*) 20 mg PO DAILY PRN PRN Reason: PER PROTOCOL Gabapentin (Neurontin Cap(*)) 600 mg PO DAILY [facility] Last Admin: 06/10/17 10:37 Dose: 600 mg Glipizide (Glucotrol Tab*) 5 mg PO DAILY [facility] Sodium Chloride (Ns 0.9% 1000 Ml*) 1,000 mls @ 200 mls/hr IV PER RATE [facility] Last Admin: 06/10/17 05:04 Dose: 200 mls/hr Piperacillin Sod/Tazobactam (Sod 13.5 gm/ Sodium Chloride) 500 mls @ 20.833 mls /hr IVPB Q24H [facility] Last Admin: 06/10/17 05:04 Dose: 20.833 mls/hr Ibuprofen (Motrin Tab*) 400 mg PO Q6H PRN PRN Reason: fever/pain Last Admin: 06/08/17 23:43 Dose: 400 mg Insulin Glargine (Lantus(*)) 60 units SUBCUT Q24H [facility] Insulin Human Lispro (Humalog*) 0 units SUBCUT ACHS [facility] PRN Reason: Protocol Last Admin: 06/10/17 08:54 Dose: 3 unit Lurasidone HCl (Latuda) 40 mg PO DAILY [facility] Last Admin: 06/10/17 10:37 Dose: 40 mg Metformin HCl (Glucophage*) 1,000 mg PO DAILY [facility] Mometasone Furoate/Formoterol Fumar (Dulera 200/5 Mdi*) 2 puff INH BID [facility] Last Admin: 06/10/17 07:52 Dose: 2 puff Nicotine (Nicotine Patch 21 Mg/24 Hr*) 1 patch TRANSDERM DAILY [facility] Last Admin: 06/10/17 10:41 Dose: 1 patch Pharmacy Consult (Zosyn Per Pharmacy*) 1 note FOLLOW UP . PRN PRN Reason: PER PROTOCOL Pharmacy Profile Note (Nicotine Patch Removal Note*) 1 note PATCH OFF 2100 [facility] Last Admin: 06/09/17 23:03 Dose: 1 note Pharmacy Profile Note (Vancomycin Trough Check) 1 note FOLLOW UP 0800 [facility] Stop: 06/11/17 08:01 Vital Signs - 8 hr 06/10/17 06/10/17 06/10/17 05:57 08:00 10:37 Temperature 100.5 F 98.9 F Pulse Rate 88 Respiratory 18 18 Rate Blood Pressure 151/78 (mmHg) O2 Sat by Pulse 97 Oximetry Oxygen Devices in Use Now: None Appearance: Alert, in a chair, enjoying her lunch. In good spirits. Looks comfortable. Eyes: No Scleral Icterus Respiratory: Symmetrical Chest Expansion and Respiratory Effort, Clear to Auscultation, Clear to Percussion Cardiovascular: NL Sounds; No Murmurs; No JVD, RRR, No Edema, - Abdominal: NL Sounds; No Tenderness; No Distention, No Hepatosplenomegaly, - Extremities: No Edema, No Clubbing, Cyanosis, - Skin: No Nodules or Sclerosis, - - 2 x 8 cm superficial abraded red area R abdomen, surrounding hyperpigmentation, no warmth or erythema, no discharge. Neurological: Alert and Oriented x 3, NL Sensation Result Diagrams: 06/09/17 07:30 06/09/17 07:30 Additional Lab and Data: . Microbiology and Other Data: Microbiology 06/08/17 11:20 CSF Gram Stain (Tube 3) - Final Cerebral Spinal Fluid CSF Culture - Preliminary No Growth Day 1 06/08/17 21:50 Nasal Screen MRSA (PCR)([facility]) - Final Nasal Mrsa Detected Assess/Plan/Problems-Billing . Assessment: 61 yo female with DM-II, obesity, and likely COPD now with encephalopathy most likely due to either viral encephalitis/meningitis or aseptic meningitis, OR worsening anterior abd wall wound and related sepsis. . - Patient Problems (1) Wound cellulitis Current Visit: Yes Status: Acute Code(s): L03.90 - CELLULITIS, UNSPECIFIED SNOMED Code(s): 320259906 Comment: Cellulitic component has resolved. Stop vanco, continue pip/fidencio. Consider discharge on oral antibiotic 06/11. (2) Diabetes Current Visit: Yes Status: Acute Code(s): E11.9 - TYPE 2 DIABETES MELLITUS WITHOUT COMPLICATIONS SNOMED Code(s): 69342923 Comment: Restart metformin 06/11, change Lantus to AM and increase to 60 U. Resume liraglutide, glipizide. (3) Tobacco abuse Current Visit: Yes Status: Acute Code(s): Z72.0 - TOBACCO USE SNOMED Code( s): 741419012 Comment: Pt advised to quit smoking and avoid second hand smoke. (4) Psychiatric diagnosis Current Visit: Yes Status: Acute Code(s): F99 - MENTAL DISORDER, NOT OTHERWISE SPECIFIED SNOMED Code(s): 35912160 Comment: Continue lurasidone, re-start buproprion, hold citalopram.
[2017-06-10] MEDS: Nicotine Patch Removal NOTE PATCH OFF SCH (21:48)
[2017-06-11] MEDS: Acetaminophen TAB* 325 MG PO PRN ×2 (00:07→21:05)
[2017-06-11] MEDS: Piperacillin/Tazobactam 13.5 GM IV 24 hour continuous infusion IVPB SCH ×2 (05:04)
[2017-06-11] MEDS ORDERED: Vancomycin Trough Check NOTE FOLLOW UP ONE (08:00)
[2017-06-11] MEDS: Insulin LISPRO* 1 UNITS UNIT SUBCUT SCH ×4 (09:11→21:06)
[2017-06-11] MEDS: metFORMIN* 500 MG TAB PO SCH (09:17)
[2017-06-11] MEDS: Insulin GLARGINE(*) 1 UNITS UNIT SUBCUT SCH (09:17)
[2017-06-11] MEDS: glipiZIDE TAB* 5 MG PO SCH (09:17)
[2017-06-11] MEDS: BuPROPion XL* 300 MG TAB.XL PO SCH (09:18)
[2017-06-11] MEDS: Lurasidone(*) 40 MG TAB PO SCH (09:19)
[2017-06-11] MEDS: NF:Liraglutide (NF) 18 MG/3 ML SUBCUT SCH (09:22)
[2017-06-11] MEDS: Mometasone/Formoter 200/5 MDI INH SCH ×2 (09:22→21:06)
[2017-06-11] MEDS: Enoxaparin(*) 40 MG/0.4 ML SYR SUBCUT SCH (09:23)
[2017-06-11] MEDS: Nicotine PATCH 21 MG/24 HR* PATCH TRANSDERM SCH (09:25)
[2017-06-11] MEDS: Gabapentin CAP(*) 300 MG PO SCH ×2 (10:50→21:05)
[2017-06-11] MEDS ORDERED: Vancomycin per Pharmacy* NOTE FOLLOW UP PRN (16:05)
--- NOTE | 2017-06-11 16:17 | PN ---
Subjective Date of Service: 06/11/17 Interval History: No c/o, denies chills or sweats. Family History: Unchanged from Admission Social History: Unchanged from Admission Past Medical History: Unchanged from Admission Objective Active Medications: Acetaminophen (Tylenol Tab*) 650 mg PO Q6H PRN PRN Reason: FEVER/PAIN Last Admin: 06/11/17 00:07 Dose: 650 mg Al Hydrox/Mg Hydrox/Simethicone (Maalox Plus*) 30 ml PO Q6H PRN PRN Reason: INDIGESTION Albuterol (Ventolin 2.5 Mg/3 Ml Neb.Roseann*) 2.5 mg INH [id number] AWAKE PRN PRN Reason: sob/wheezing Albuterol (Ventolin Hfa Inhaler*) 2 puff INH Q4HR PRN PRN Reason: SHORTNESS OF BREATH Last Admin: 06/10/17 22:08 Dose: 2 puff Bupropion HCl (Bupropion Xl*) 300 mg PO DAILY [facility] Last Admin: 06/11/17 09:18 Dose: 300 mg Dextrose (D50w Syringe 50 Ml*) 12.5 gm IV PUSH .FOR FS < 60 - SS PRN PRN Reason: FS < 60 Docusate Sodium (Colace Cap*) 100 mg PO DAILY PRN PRN Reason: CONSTIPATION Enoxaparin Sodium (Lovenox(*)) 40 mg SUBCUT Q24H [facility] Last Admin: 06/11/17 09:23 Dose: 40 mg Furosemide (Lasix Tab*) 20 mg PO DAILY PRN PRN Reason: PER PROTOCOL Gabapentin (Neurontin Cap(*)) 600 mg PO BEDTIME [facility] Glipizide (Glucotrol Tab*) 5 mg PO DAILY [facility] Last Admin: 06/11/17 09:17 Dose: 5 mg Piperacillin Sod/Tazobactam (Sod 13.5 gm/ Sodium Chloride) 500 mls @ 20.833 mls /hr IVPB Q24H [facility] Last Admin: 06/11/17 05:04 Dose: 20.833 mls/hr Vancomycin HCl 1,500 mg/ (Sodium Chloride) 250 mls @ 166.667 mls/hr IVPB ONCE ONE Stop: 06/11/17 17:59 Ibuprofen (Motrin Tab*) 400 mg PO Q6H PRN PRN Reason: fever/pain Last Admin: 06/08/17 23:43 Dose: 400 mg Insulin Glargine (Lantus(*)) 60 units SUBCUT Q24H [facility] Last Admin: 06/11/17 09:17 Dose: 60 units Insulin Human Lispro (Humalog*) 0 units SUBCUT ACHS [facility] PRN Reason: Protocol Last Admin: 06/11/17 12:20 Dose: 6 unit Liraglutide (Victoza (Nf)) 1.2 mg SUBCUT DAILY [facility] Last Admin: 06/11/17 09:22 Dose: Not Given Lurasidone HCl (Latuda) 40 mg PO DAILY [facility] Last Admin: 06/11/17 09:19 Dose: 40 mg Metformin HCl (Glucophage*) 1,000 mg PO DAILY [facility] Last Admin: 06/11/17 09:17 Dose: 1,000 mg Mometasone Furoate/Formoterol Fumar (Dulera 200/5 Mdi*) 2 puff INH BID [facility] Last Admin: 06/11/17 09:22 Dose: 2 puff Nicotine (Nicotine Patch 21 Mg/24 Hr*) 1 patch TRANSDERM DAILY [facility] Last Admin: 06/11/17 09:25 Dose: 1 patch Pharmacy Consult (Zosyn Per Pharmacy*) 1 note FOLLOW UP . PRN PRN Reason: PER PROTOCOL Pharmacy Consult (Vancomycin Per Pharmacy*) 1 note FOLLOW UP . PRN PRN Reason: PER PROTOCOL Pharmacy Profile Note (Nicotine Patch Removal Note*) 1 note PATCH OFF 2100 [facility] Last Admin: 06/10/17 21:48 Dose: 1 note Vital Signs - 8 hr 06/11/17 11:47 Temperature 98.8 F Pulse Rate 70 Respiratory 16 Rate Blood Pressure 126/66 (mmHg) O2 Sat by Pulse 98 Oximetry Oxygen Devices in Use Now: None Appearance: Alert, partly up in bed. In good spirits. Looks comfortable. Eyes: No Scleral Icterus Respiratory: Symmetrical Chest Expansion and Respiratory Effort, Clear to Auscultation, Clear to Percussion Cardiovascular: NL Sounds; No Murmurs; No JVD, RRR, No Edema, - Extremities: No Edema, No Clubbing, Cyanosis, - Skin: No Nodules or Sclerosis, - - Ulcer R abdomen bandaged Neurological: Alert and Oriented x 3, NL Sensation Result Diagrams: 06/09/17 07:30 06/09/17 07:30 Additional Lab and Data: . Microbiology and Other Data: Microbiology 06/08/17 11:20 CSF Gram Stain (Tube 3) - Final Cerebral Spinal Fluid CSF Culture - Preliminary No Growth Day 1 06/08/17 21:50 Nasal Screen MRSA (PCR)([facility]) - Final Nasal Mrsa Detected Assess/Plan/Problems-Billing . Assessment: 61 yo female with DM-II, obesity, and likely COPD now with encephalopathy most likely due to either viral encephalitis/meningitis or aseptic meningitis, OR worsening anterior abd wall wound and related sepsis. . - Patient Problems (1) Wound cellulitis Current Visit: Yes Status: Acute Code(s): L03.90 - CELLULITIS, UNSPECIFIED SNOMED Code(s): 288345166 Comment: Cellulitic component has resolved. Continue vancomycin for MRSA bacteremia, will not need antibiotic for the wound itself. (2) Diabetes Current Visit: Yes Status: Acute Code(s): E11.9 - TYPE 2 DIABETES MELLITUS WITHOUT COMPLICATIONS SNOMED Code(s): 07169421 Comment: Restart metformin 06/11, change Lantus to AM and increase to 60 U. Resume liraglutide, glipizide. (3) Tobacco abuse Current Visit: Yes Status: Acute Code(s): Z72.0 - TOBACCO USE SNOMED Code( s): 649299130 Comment: Pt advised to quit smoking and avoid second hand smoke. (4) Psychiatric diagnosis Current Visit: Yes Status: Acute Code(s): F99 - MENTAL DISORDER, NOT OTHERWISE SPECIFIED SNOMED Code(s): 31386894 Comment: Continue lurasidone, re-start buproprion, hold citalopram. (5) MRSA bacteremia Current Visit: Yes Status: Acute Code(s): R78.81 - BACTEREMIA SNOMED Code( s): 67067055669490022 Comment: Echo ordered. Re-load with vanco 1500 mg PM 06/11, pharmacy to dose. CRP, CBC, BMP 06/12. Temp 101.2 06/11/17 00:[address] Aguirre requested to consult.
[2017-06-11] MEDS ORDERED: Vancomycin(*) 1,500 MG in NS 0.9% 250 ML* 250 ML IVPB ONE (16:30)
[2017-06-11] MEDS: Nicotine Patch Removal NOTE PATCH OFF SCH (21:20)
[2017-06-12] MEDS: Piperacillin/Tazobactam 13.5 GM IV 24 hour continuous infusion IVPB SCH ×2 (01:11)
[2017-06-12] MEDS: Vancomycin(*) 1,250 MG in NS 0.9% 250 ML* 250 ML IVPB SCH ×2 (03:41→16:40)
[2017-06-12 05:33] LABS: ABS Basophils 0.1 10^3/ul (0-0.2); ABS Eosinophils 0.3 10^3/ul (0-0.6); ABS Lymphocytes 1.9 10^3/ul (1.0-4.8); ABS Neutrophils 5.3 10^3/ul (1.5-7.7); ABS Nucleated RBC 0 10^3/ul; Eosinophil % 3.1 % (0-6); Hematocrit 35 % (35-47); Hemoglobin 12.2 g/dl (12.0-16.0); Lymphocyte % 22.2 % (25-47); Mean Corpuscular HGB Conc 35 g/dl (31-36); Mean Corpuscular Hemoglobin 35 pg (27-31); Mean Corpuscular Volume 100 fL (80-97); Mean Platelet Volume 8.4 um3 (7.4-10.4); Nucleated Red Blood Cells % 0; Platelet Count 178 10^3/ul (150-450); Red Blood Count 3.49 10^6/ul (4.0-5.4); Red Cell Distribution Width 13 % (10.5-15); White Blood Count 8.5 10^3/ul (3.5-10.8)
[2017-06-12 05:48] LABS: EGFR Non-African American 88.3 (>60)
[2017-06-12] MEDS ORDERED: Perflutren Lipid Microsphere* 3 ML VIAL ONE (08:32)
[2017-06-12] MEDS: Mometasone/Formoter 200/5 MDI INH SCH ×2 (09:02→20:44)
[2017-06-12] MEDS: Insulin LISPRO* 1 UNITS UNIT SUBCUT SCH ×4 (09:19→20:43)
[2017-06-12] MEDS: Enoxaparin(*) 40 MG/0.4 ML SYR SUBCUT SCH (09:24)
[2017-06-12] MEDS: Insulin GLARGINE(*) 1 UNITS UNIT SUBCUT SCH (09:25)
[2017-06-12] MEDS: Lurasidone(*) 40 MG TAB PO SCH (09:25)
[2017-06-12] MEDS: metFORMIN* 500 MG TAB PO SCH (09:25)
[2017-06-12] MEDS: glipiZIDE TAB* 5 MG PO SCH (09:25)
[2017-06-12] MEDS: Nicotine PATCH 21 MG/24 HR* PATCH TRANSDERM SCH (09:25)
[2017-06-12] MEDS: BuPROPion XL* 300 MG TAB.XL PO SCH (09:25)
[2017-06-12] MEDS: NF:Liraglutide (NF) 18 MG/3 ML SUBCUT SCH (09:26)
--- NOTE | 2017-06-12 13:27 | ECHO ---
Patient: ESTELLE HUSAIN [facility] Rec#: [id number] : 1955 Date: 06/12/2017 Age: 61y Height: 170.2 cm / 67.0 in Weight: 98 kg / 216.0 lbs Sex: F BSA: 2.1 Room#: 339 Admit Date#: 06/08/2017 Type: Inpatient Referring: Billy Anderson MD Reading: Karla Lobato MD Speech Therapist: Madelyn Fleming RN RDCS CC: Jada Alvarez NP Transthoracic Echocardiogram Indication: MRSA bacteremia BP: 122/66 HR: 77 Rhythm: NSR Findings History: HTN, DM, COPD, smoker, RICHIE, obesity, abdominal wall wound with cellulitis Technical Comments: The study is technically limited due to poor acoustic windows. The study is technically limited due to patient body habitus. The study is technically limited due to the patient's history of COPD. The study is technically limited due to the patient's smoking history. Completed at 0935. Left Ventricle: The left ventricular chamber size is normal. Mild concentric left ventricular hypertrophy is observed. There is a focal wall motion abnormality present.focal area of the inferior wall hypokinetic seen on short axis and 2 chamber views. There is mildly decreased left ventricular systolic function. The estimated ejection fraction is 45-50%. Abnormal left ventricular diastolic filling is observed, consistent with impaired relaxation. Left Atrium: The left atrial chamber size is normal. Right Ventricle: The right ventricle wall thickness is moderately increased. The right ventricular cavity size is normal. The right ventricular global systolic function is mildly reduced. Right Atrium: The right atrium is not well visualized. Aortic Valve: The aortic valve structure is not well visualized. The aortic valve leaflets are mildly thickened. There is no evidence of aortic regurgitation. There is no evidence of aortic stenosis. Mitral Valve: The mitral valve leaflets are mildly thickened. There is moderate mitral regurgitation. The mitral regurgitant jet is posteriorly directed. The mitral regurgitant jet is laterally directed. There is no evidence of mitral stenosis. No vegetation is observed on the mitral valve. Tricuspid Valve: The tricuspid valve structure is not well visualized. There is trace to mild tricuspid regurgitation. The right ventricular systolic pressure is estimated at 37 mmHg. There is evidence of mild pulmonary hypertension. There is no tricuspid stenosis. Pulmonic Valve: The pulmonic valve structure is not well visualized. There is no evidence of pulmonic regurgitation. There is no pulmonic stenosis. Pericardium: There is no significant pericardial effusion. A pericardial fat pad is visualized. Aorta: The aorta is not well visualized. Pulmonary Artery: The main pulmonary artery is not well visualized. Venous: The inferior vena cava appears normal in size. There is an approximate 50% respiratory change in the inferior vena cava dimension. Contrast: Definity was used to optimize study. A total of 4 ml of diluted Definity was given IV. Conclusions Mild concentric left ventricular hypertrophy is observed. Focal region of inferior wall hypokinetic seen on short axis and 2 chamber views. The estimated ejection fraction is 45-50%. Abnormal left ventricular diastolic filling is observed, consistent with impaired relaxation. The right ventricle wall thickness is moderately increased. The right ventricular global systolic function is mildly reduced. Grossly no vegetations seen on any valves, butdue to COPD study not optimal. The aortic valve leaflets are mildly thickened, good function. The mitral valve leaflets are mildly thickened. There is moderate mitral regurgitation, eccentric posterior lateral wall jet. There is trace to mild tricuspid regurgitation. There is evidence of mild pulmonary hypertension: 37 mmHg. Compared with prior study of 11/07/15, prior EF 55-60%, inferior wall motion abnormality newly noted, RV hypertrophy newly noted, MR has increased from trace. Measurements Name Value Normal Range RVIDd (AP) 2D 2.6 cm (0.9 - 2.6) RVDdMajor (2D) 3.2 cm (2.2 - 4.4) RVAW (2D) 1.1 cm (0.2 - 0.5) RAd ISD 4CH 4.6 cm (3.4 - 4.9) RA (A4C)W 3.5 cm (2.9 - 4.6) IVSd (2D) 1.1 cm (0.6 - 1) LVPWd (2D) 1.1 cm (0.6 - 1) LVIDd (2D) 4.8 cm (3.6 - 5.4) LVIDs (2D) 3.3 cm - LV FS (2D) 31 % (25 - 45) LA dimension (AP) 2D 3.9 cm (2.3 - 3.8) LAd ISD 4CH 5.1 cm (2.9 - 5.3) LA ISD 4CH W 4 cm (2.5 - 4.5) Name Value Normal Range LA ESV SP 4CH (A/L) 59 ml - LA ESV SP 2CH (A/L) 47 ml - LA ESV BP (A/L) 55 ml - LA ESV BP (A/L) index 26.5 ml/m2 - LA ESV SP 4CH (MOD) 56 ml - LA ESV SP 2CH (MOD) 44 ml - Name Value Normal Range MV E-wave Vmax 1.2 m/sec - MV deceleration time 211 msec - MV A-wave Vmax 1.3 m/sec - MV E:A ratio 0.9 ratio - LV septal e' Vmax 0.06 m/sec - LV lateral e' Vmax 0.07 m/sec - LV E:e' septal ratio 20 ratio - LV E:e' lateral ratio 17.1 ratio - Name Value Normal Range AV Vmax 1.9 m/sec - AV VTI 44.9 cm - AV peak gradient 12.7 mmHg - AV mean gradient 9 mmHg - LVOT Vmax 1 m/sec - LVOT VTI 19.9 cm - LVOT peak gradient 4.1 mmHg - LVOT mean gradient 2.8 mmHg - Name Value Normal Range MV Vmax 1.7 m/sec - MV VTI 46.1 cm - MV peak gradient 11.4 mmHg - MV mean gradient 4.2 mmHg - MV PHT 69 msec - MVA (PHT) 3.2 cm2 - Name Value Normal Range TR Vmax 2.7 m/sec - TR peak gradient 29 mmHg - RAP 8 mmHg - RVSP 37 mmHg - IVC diameter 2.1 cm - Name Value Normal Range PV Vmax 0.85 m/sec -
--- NOTE | 2017-06-12 16:14 | PN ---
Subjective Date of Service: 06/12/17 Interval History: No c/o. No chills or sweats. Good appetite. No bowel c/o. Family History: Unchanged from Admission Social History: Unchanged from Admission Past Medical History: Unchanged from Admission Objective Active Medications: Acetaminophen (Tylenol Tab*) 650 mg PO Q6H PRN PRN Reason: FEVER/PAIN Last Admin: 06/11/17 21:05 Dose: 650 mg Al Hydrox/Mg Hydrox/Simethicone (Maalox Plus*) 30 ml PO Q6H PRN PRN Reason: INDIGESTION Albuterol (Ventolin 2.5 Mg/3 Ml Neb.Roseann*) 2.5 mg INH [id number] AWAKE PRN PRN Reason: sob/wheezing Albuterol (Ventolin Hfa Inhaler*) 2 puff INH Q4HR PRN PRN Reason: SHORTNESS OF BREATH Last Admin: 06/10/17 22:08 Dose: 2 puff Bupropion HCl (Bupropion Xl*) 300 mg PO DAILY [facility] Last Admin: 06/12/17 09:25 Dose: 300 mg Dextrose (D50w Syringe 50 Ml*) 12.5 gm IV PUSH .FOR FS < 60 - SS PRN PRN Reason: FS < 60 Docusate Sodium (Colace Cap*) 100 mg PO DAILY PRN PRN Reason: CONSTIPATION Enoxaparin Sodium (Lovenox(*)) 40 mg SUBCUT Q24H [facility] Last Admin: 06/12/17 09:24 Dose: 40 mg Furosemide (Lasix Tab*) 20 mg PO DAILY PRN PRN Reason: PER PROTOCOL Gabapentin (Neurontin Cap(*)) 600 mg PO BEDTIME [facility] Last Admin: 06/11/17 21:05 Dose: 600 mg Glipizide (Glucotrol Tab*) 5 mg PO DAILY [facility] Last Admin: 06/12/17 09:25 Dose: 5 mg Vancomycin HCl 1,250 mg/ (Sodium Chloride) 250 mls @ 166.667 mls/hr IVPB Q12H [facility] Last Admin: 06/12/17 03:41 Dose: 166.667 mls/hr Ibuprofen (Motrin Tab*) 400 mg PO Q6H PRN PRN Reason: fever/pain Last Admin: 06/08/17 23:43 Dose: 400 mg Insulin Glargine (Lantus(*)) 54 units SUBCUT Q24H [facility] Insulin Human Lispro (Humalog*) 0 units SUBCUT ACHS [facility] PRN Reason: Protocol Last Admin: 06/12/17 12:42 Dose: Not Given Lurasidone HCl (Latuda) 40 mg PO DAILY [facility] Last Admin: 06/12/17 09:25 Dose: 40 mg Metformin HCl (Glucophage*) 1,000 mg PO DAILY [facility] Last Admin: 06/12/17 09:25 Dose: 1,000 mg Mometasone Furoate/Formoterol Fumar (Dulera 200/5 Mdi*) 2 puff INH BID [facility] Last Admin: 06/12/17 09:02 Dose: 2 puff Nicotine (Nicotine Patch 21 Mg/24 Hr*) 1 patch TRANSDERM DAILY [facility] Last Admin: 06/12/17 09:25 Dose: 1 patch Pharmacy Consult (Vancomycin Per Pharmacy*) 1 note FOLLOW UP . PRN PRN Reason: PER PROTOCOL Pharmacy Profile Note (Nicotine Patch Removal Note*) 1 note PATCH OFF 2100 [facility] Last Admin: 06/11/17 21:20 Dose: 1 note Pharmacy Profile Note (Vancomycin Trough Check) 1 note FOLLOW UP .ENTER TIME ONE Stop: 06/13/17 15:31 Vital Signs - 8 hr 06/12/17 09:41 Temperature 97.8 F Pulse Rate 70 Respiratory 16 Rate Blood Pressure 124/56 (mmHg) O2 Sat by Pulse 98 Oximetry Oxygen Devices in Use Now: None Appearance: Alert, in a chair. In good spirits. Looks comfortable. Respiratory: Symmetrical Chest Expansion and Respiratory Effort, Clear to Auscultation, Clear to Percussion Cardiovascular: NL Sounds; No Murmurs; No JVD, RRR, No Edema, - Extremities: No Edema, No Clubbing, Cyanosis, - Skin: No Rash or Ulcers, No Nodules or Sclerosis, - Result Diagrams: 06/12/17 05:12 06/12/17 05:12 Additional Lab and Data: . Microbiology and Other Data: Microbiology 06/08/17 11:20 CSF Gram Stain (Tube 3) - Final Cerebral Spinal Fluid CSF Culture - Preliminary No Growth Day 1 06/08/17 21:50 Nasal Screen MRSA (PCR)(AMENA) - Final Nasal Mrsa Detected Assess/Plan/Problems-Billing . Assessment: 61 yo female with DM-II, obesity, and likely COPD now with encephalopathy most likely due to either viral encephalitis/meningitis or aseptic meningitis, OR worsening anterior abd wall wound and related sepsis. . - Patient Problems (1) Wound cellulitis Current Visit: Yes Status: Acute Code(s): L03.90 - CELLULITIS, UNSPECIFIED SNOMED Code(s): 657142703 Comment: Cellulitic component has resolved. Continue vancomycin for MRSA bacteremia, will not need antibiotic for the wound itself. (2) Diabetes Current Visit: Yes Status: Acute Code(s): E11.9 - TYPE 2 DIABETES MELLITUS WITHOUT COMPLICATIONS SNOMED Code(s): 95480488 Comment: Restarted metformin and glipizide 06/11. Pt states she takes Lantus 58 U daily at home plus Victoza 1.2 nl. Reduce Lantus to 54 U q AM due to FS of 90.. Liraglutide not available. (3) Tobacco abuse Current Visit: Yes Status: Acute Code(s): Z72.0 - TOBACCO USE SNOMED Code( s): 946728000 Comment: Pt advised to quit smoking and avoid second hand smoke. (4) Psychiatric diagnosis Current Visit: Yes Status: Acute Code(s): F99 - MENTAL DISORDER, NOT OTHERWISE SPECIFIED SNOMED Code(s): 20342026 Comment: Continue lurasidone, re-start buproprion, hold citalopram. (5) MRSA bacteremia Current Visit: Yes Status: Acute Code(s): R78.81 - BACTEREMIA SNOMED Code( s): 61126607945786136 Comment: Echo 06/12 was of poor quality. JEANETTE ordered, should be done 06/15. Continue vanco per pharmacy. CRP 105.77 06/12, WBC 8.5. Tmax on 06/11 100.1. Two sets of blood C&S sent 06/11 in PM. If they are no growth can have PICC line Thursday 06/15. Dr. Aguirre will consult 06/15. I think patient will be able to self-administer vancomycin at home.
[2017-06-12] MEDS: Gabapentin CAP(*) 300 MG PO SCH (20:43)
[2017-06-12] MEDS: Nicotine Patch Removal NOTE PATCH OFF SCH (20:44)
[2017-06-12] MEDS: Acetaminophen TAB* 325 MG PO PRN (20:46)
[2017-06-13] MEDS: Albuterol HFA INHALER* 8 gm MDI INH PRN ×2 (00:53→20:07)
[2017-06-13] MEDS: Vancomycin(*) 1,250 MG in NS 0.9% 250 ML* 250 ML IVPB SCH ×2 (03:45→16:39)
[2017-06-13] MEDS ORDERED: Mouth Piece, Nicotine* 1 EACH CARTRIDGE INH PRN (07:47)
[2017-06-13] MEDS ORDERED: Nicotine Inhaler* 10 MG AMP INH PRN (07:47)
[2017-06-13] MEDS: Insulin LISPRO* 1 UNITS UNIT SUBCUT SCH ×4 (07:57→21:09)
[2017-06-13] MEDS: Lurasidone(*) 40 MG TAB PO SCH (08:04)
[2017-06-13] MEDS: Nicotine PATCH 21 MG/24 HR* PATCH TRANSDERM SCH (08:04)
[2017-06-13] MEDS: BuPROPion XL* 300 MG TAB.XL PO SCH (08:04)
[2017-06-13] MEDS: metFORMIN* 500 MG TAB PO SCH (08:04)
[2017-06-13] MEDS: glipiZIDE TAB* 5 MG PO SCH (08:04)
[2017-06-13] MEDS: Mometasone/Formoter 200/5 MDI INH SCH ×2 (08:07→20:07)
[2017-06-13] MEDS: Insulin GLARGINE(*) 1 UNITS UNIT SUBCUT SCH (08:07)
[2017-06-13] MEDS: Enoxaparin(*) 40 MG/0.4 ML SYR SUBCUT SCH (08:15)
[2017-06-13] MEDS ORDERED: Vancomycin Trough Check NOTE FOLLOW UP ONE (15:30)
--- NOTE | 2017-06-13 16:48 | PN ---
Subjective Date of Service: 06/13/17 Interval History: no overnight events. blood cultures from this morning are pending. she feels good, has no complaints. Family History: Unchanged from Admission Social History: Unchanged from Admission Past Medical History: Unchanged from Admission Objective Active Medications: Acetaminophen (Tylenol Tab*) 650 mg PO Q6H PRN PRN Reason: FEVER/PAIN Last Admin: 06/12/17 20:46 Dose: 650 mg Al Hydrox/Mg Hydrox/Simethicone (Maalox Plus*) 30 ml PO Q6H PRN PRN Reason: INDIGESTION Albuterol (Ventolin 2.5 Mg/3 Ml Neb.Roseann*) 2.5 mg INH [id number] AWAKE PRN PRN Reason: sob/wheezing Albuterol (Ventolin Hfa Inhaler*) 2 puff INH Q4HR PRN PRN Reason: SHORTNESS OF BREATH Last Admin: 06/13/17 00:53 Dose: 2 puff Bupropion HCl (Bupropion Xl*) 300 mg PO DAILY [facility] Last Admin: 06/13/17 08:04 Dose: 300 mg Device (Nicotine Mouth Piece*) 1 each INH .USE WITH NICOTROL PRN PRN Reason: CRAVING Last Admin: 06/13/17 08:04 Dose: 1 each Dextrose (D50w Syringe 50 Ml*) 12.5 gm IV PUSH .FOR FS < 60 - SS PRN PRN Reason: FS < 60 Docusate Sodium (Colace Cap*) 100 mg PO DAILY PRN PRN Reason: CONSTIPATION Enoxaparin Sodium (Lovenox(*)) 40 mg SUBCUT Q24H [facility] Last Admin: 06/13/17 08:15 Dose: 40 mg Furosemide (Lasix Tab*) 20 mg PO DAILY PRN PRN Reason: PER PROTOCOL Gabapentin (Neurontin Cap(*)) 600 mg PO BEDTIME [facility] Last Admin: 06/12/17 20:43 Dose: 600 mg Glipizide (Glucotrol Tab*) 5 mg PO DAILY [facility] Last Admin: 06/13/17 08:04 Dose: 5 mg Vancomycin HCl 1,250 mg/ (Sodium Chloride) 250 mls @ 166.667 mls/hr IVPB Q12H [facility] Last Admin: 06/13/17 16:39 Dose: 166.667 mls/hr Ibuprofen (Motrin Tab*) 400 mg PO Q6H PRN PRN Reason: fever/pain Last Admin: 06/08/17 23:43 Dose: 400 mg Insulin Glargine (Lantus(*)) 54 units SUBCUT Q24H [facility] Last Admin: 06/13/17 08:07 Dose: 54 units Insulin Human Lispro (Humalog*) 0 units SUBCUT ACHS [facility] PRN Reason: Protocol Last Admin: 06/13/17 13:48 Dose: Not Given Lurasidone HCl (Latuda) 40 mg PO DAILY [facility] Last Admin: 06/13/17 08:04 Dose: 40 mg Metformin HCl (Glucophage*) 1,000 mg PO DAILY [facility] Last Admin: 06/13/17 08:04 Dose: 1,000 mg Mometasone Furoate/Formoterol Fumar (Dulera 200/5 Mdi*) 2 puff INH BID [facility] Last Admin: 06/13/17 08:07 Dose: 2 puff Nicotine (Nicotine Patch 21 Mg/24 Hr*) 1 patch TRANSDERM DAILY [facility] Last Admin: 06/13/17 08:04 Dose: 1 patch Nicotine (Nicotine Inhaler*) 10 mg INH Q2H PRN PRN Reason: CRAVING Last Admin: 06/13/17 08:03 Dose: 10 mg Pharmacy Consult (Vancomycin Per Pharmacy*) 1 note FOLLOW UP . PRN PRN Reason: PER PROTOCOL Pharmacy Profile Note (Nicotine Patch Removal Note*) 1 note PATCH OFF 2100 [facility] Last Admin: 06/12/17 20:44 Dose: Not Given Vital Signs - 8 hr 06/13/17 11:22 Temperature 98.2 F Pulse Rate 67 Respiratory 17 Rate Blood Pressure 122/60 (mmHg) O2 Sat by Pulse 97 Oximetry Oxygen Devices in Use Now: None Appearance: alert, sitting up in chair playing cards with her brother Eyes: No Scleral Icterus Ears/Nose/Mouth/Throat: - - edentulous Neck: NL Appearance and Movements; NL JVP, Trachea Midline Respiratory: Symmetrical Chest Expansion and Respiratory Effort, Clear to Auscultation Cardiovascular: NL Sounds; No Murmurs; No JVD, RRR, No Edema Abdominal: NL Sounds; No Tenderness; No Distention, No Hepatosplenomegaly, - - excoriation on right mid-abdomen, no surrounding erythema, no drainage Lymphatic: No Cervical Adenopathy Extremities: No Edema Neurological: Alert and Oriented x 3 Result Diagrams: 06/12/17 05:12 06/12/17 05:12 Additional Lab and Data: . Microbiology and Other Data: Microbiology 06/08/17 11:20 CSF Gram Stain (Tube 3) - Final Cerebral Spinal Fluid CSF Culture - Preliminary No Growth Day 1 06/08/17 21:50 Nasal Screen MRSA (PCR)([facility]) - Final Nasal Mrsa Detected Assess/Plan/Problems-Billing . Assessment: 61 yo female with DM-II, obesity, and likely COPD now with encephalopathy most likely due to either viral encephalitis/meningitis or aseptic meningitis, OR anterior abd wall wound that led to bacteremia. . - Patient Problems (1) MRSA bacteremia Current Visit: Yes Status: Acute Code(s): R78.81 - BACTEREMIA SNOMED Code( s): 38140264250414916 Comment: Likely due to abdominal wall excoriation, though there is no cellulitis. Echo 06/12 was of poor quality. JEANETTE ordered for 06/15. Continue vanco per pharmacy. Afebrile x 24 hours Repeat blood cultures tomorrow. Plan for PICC line Thursday 06/15. Dr. Aguirre will consult 06/15. (2) Delirium Current Visit: Yes Status: Acute Code(s): R41.0 - DISORIENTATION, UNSPECIFIED SNOMED Code(s): 6109635 Comment: Was likely related to MRSA bacteremia At admission there was concern for aseptic or viral meningitis since the wound did not appear infected, but her mental status has improved completely since treating MRSA, so this was more likely the etiology. Now at baseline, oriented x 3 and very appropriate (3) History of hypertension Current Visit: No Status: Chronic Priority: Medium Code(s): Z86.79 - PERSONAL HISTORY OF OTHER DISEASES OF THE CIRCULATORY SYSTEM SNOMED Code(s): 458833310 (4) Insulin dependent type 2 diabetes mellitus Current Visit: No Status: Chronic Priority: Medium Code(s): E11.9 - TYPE 2 DIABETES MELLITUS WITHOUT COMPLICATIONS; Z79.4 - HALF-WAY (CURRENT) USE OF INSULIN SNOMED Code(s): 635974877 Comment: continue lantus 54U daily Status and Disposition: still with positive blood cultures, needs JEANETTE and picc line
[2017-06-13] MEDS: Gabapentin CAP(*) 300 MG PO SCH (20:59)
[2017-06-13] MEDS: Nicotine Patch Removal NOTE PATCH OFF SCH (21:01)
[2017-06-14] MEDS: Vancomycin(*) 1,250 MG in NS 0.9% 250 ML* 250 ML IVPB SCH ×2 (03:48→15:49)
[2017-06-14] MEDS ORDERED: Potassium Chloride LIQUID* 20 MEQ PACKET PO ONE (06:55)
--- NOTE | 2017-06-14 07:03 | PN ---
Subjective Date of Service: 06/14/17 Interval History: feels good today, walking the hallways. no fevers, no shortness of breath, no abdominal pain. Family History: Unchanged from Admission Social History: Unchanged from Admission Past Medical History: Unchanged from Admission Objective Active Medications: Acetaminophen (Tylenol Tab*) 650 mg PO Q6H PRN PRN Reason: FEVER/PAIN Last Admin: 06/12/17 20:46 Dose: 650 mg Al Hydrox/Mg Hydrox/Simethicone (Maalox Plus*) 30 ml PO Q6H PRN PRN Reason: INDIGESTION Albuterol (Ventolin 2.5 Mg/3 Ml Neb.Roseann*) 2.5 mg INH [id number] AWAKE PRN PRN Reason: sob/wheezing Albuterol (Ventolin Hfa Inhaler*) 2 puff INH Q4HR PRN PRN Reason: SHORTNESS OF BREATH Last Admin: 06/13/17 20:07 Dose: 2 puff Bupropion HCl (Bupropion Xl*) 300 mg PO DAILY [facility] Last Admin: 06/13/17 08:04 Dose: 300 mg Device (Nicotine Mouth Piece*) 1 each INH .USE WITH NICOTROL PRN PRN Reason: CRAVING Last Admin: 06/13/17 08:04 Dose: 1 each Dextrose (D50w Syringe 50 Ml*) 12.5 gm IV PUSH .FOR FS < 60 - SS PRN PRN Reason: FS < 60 Docusate Sodium (Colace Cap*) 100 mg PO DAILY PRN PRN Reason: CONSTIPATION Enoxaparin Sodium (Lovenox(*)) 40 mg SUBCUT Q24H [facility] Last Admin: 06/13/17 08:15 Dose: 40 mg Furosemide (Lasix Tab*) 20 mg PO DAILY PRN PRN Reason: PER PROTOCOL Gabapentin (Neurontin Cap(*)) 600 mg PO BEDTIME [facility] Last Admin: 06/13/17 20:59 Dose: 600 mg Glipizide (Glucotrol Tab*) 5 mg PO DAILY [facility] Last Admin: 06/13/17 08:04 Dose: 5 mg Vancomycin HCl 1,250 mg/ (Sodium Chloride) 250 mls @ 166.667 mls/hr IVPB Q12H [facility] Last Admin: 06/14/17 03:48 Dose: 100 mls/hr Ibuprofen (Motrin Tab*) 400 mg PO Q6H PRN PRN Reason: fever/pain Last Admin: 06/08/17 23:43 Dose: 400 mg Insulin Glargine (Lantus(*)) 54 units SUBCUT Q24H [facility] Last Admin: 06/13/17 08:07 Dose: 54 units Insulin Human Lispro (Humalog*) 0 units SUBCUT ACHS [facility] PRN Reason: Protocol Last Admin: 06/13/17 21:09 Dose: 3 unit Lurasidone HCl (Latuda) 40 mg PO DAILY [facility] Last Admin: 06/13/17 08:04 Dose: 40 mg Metformin HCl (Glucophage*) 1,000 mg PO DAILY [facility] Last Admin: 06/13/17 08:04 Dose: 1,000 mg Mometasone Furoate/Formoterol Fumar (Dulera 200/5 Mdi*) 2 puff INH BID [facility] Last Admin: 06/13/17 20:07 Dose: 2 puff Nicotine (Nicotine Patch 21 Mg/24 Hr*) 1 patch TRANSDERM DAILY [facility] Last Admin: 06/13/17 08:04 Dose: 1 patch Nicotine (Nicotine Inhaler*) 10 mg INH Q2H PRN PRN Reason: CRAVING Last Admin: 06/13/17 08:03 Dose: 10 mg Pharmacy Consult (Vancomycin Per Pharmacy*) 1 note FOLLOW UP . PRN PRN Reason: PER PROTOCOL Pharmacy Profile Note (Nicotine Patch Removal Note*) 1 note PATCH OFF 2100 [facility] Last Admin: 06/13/17 21:01 Dose: Not Given Potassium Chloride (Klor-Con Liquid*) 40 meq PO ED ONCE ONE Stop: 06/14/17 06:56 Vital Signs - 8 hr 06/13/17 06/13/17 06/14/17 23:11 23:47 03:36 Temperature 98.9 F 98.5 F Pulse Rate 81 81 Respiratory 16 16 16 Rate Blood Pressure 134/67 137/58 (mmHg) O2 Sat by Pulse 96 96 Oximetry Oxygen Devices in Use Now: None Appearance: alert, well appearing Eyes: No Scleral Icterus Ears/Nose/Mouth/Throat: - - edentulous Neck: NL Appearance and Movements; NL JVP Respiratory: Symmetrical Chest Expansion and Respiratory Effort, Clear to Auscultation Cardiovascular: NL Sounds; No Murmurs; No JVD, RRR, - - trace leg edema Abdominal: NL Sounds; No Tenderness; No Distention, No Hepatosplenomegaly, - - no fluid wave. protuberant abdomen. superficial excoriation right mid-abdomen without surrounding erythema, no drainage Lymphatic: No Cervical Adenopathy Extremities: No Edema Skin: No Rash or Ulcers Neurological: Alert and Oriented x 3 Result Diagrams: 06/12/17 05:12 06/14/17 05:14 Additional Lab and Data: . Microbiology and Other Data: Microbiology 06/08/17 11:20 CSF Gram Stain (Tube 3) - Final Cerebral Spinal Fluid CSF Culture - Preliminary No Growth Day 1 06/08/17 21:50 Nasal Screen MRSA (PCR)([facility]) - Final Nasal Mrsa Detected Assess/Plan/Problems-Billing . Assessment: 61 yo female with DM-II, obesity admitted with delirium, found to have elevated protein in her CSF and blood cultures positive for MRSA. Initially was thought to have viral/aseptic meningitis/encephalitis, but with ongoing positive blood cultures, etiology of delirium is most likely staph bacteremia. . - Patient Problems (1) MRSA bacteremia Current Visit: Yes Status: Acute Code(s): R78.81 - BACTEREMIA SNOMED Code( s): 97577612651642086 Comment: Likely due to abdominal wall excoriation, no cellulitis. I don't believe there is a deeper soft tissue infection. Blood cultures remain positive 06/08, 06/11, 06/13. This morning's are pending. Echo 06/12 was of poor quality. JEANETTE ordered for 06/15. Continue vanco per pharmacy. Will need picc once blood cultures are clear Dr. Aguirre will consult 06/15. (2) Delirium Current Visit: Yes Status: Acute Code(s): R41.0 - DISORIENTATION, UNSPECIFIED SNOMED Code(s): 6109741 Comment: Was likely related to MRSA bacteremia At admission there was concern for aseptic or viral meningitis since the wound did not appear infected, but her mental status has improved completely since treating MRSA, so this was more likely the etiology. Now at baseline, oriented x 3 and very appropriate (3) Insulin dependent type 2 diabetes mellitus Current Visit: No Status: Chronic Priority: Medium Code(s): E11.9 - TYPE 2 DIABETES MELLITUS WITHOUT COMPLICATIONS; Z79.4 - GROUP HOME (CURRENT) USE OF INSULIN SNOMED Code(s): 875165787 Comment: continue lantus 54U daily and glipizide and metformin (victoza is on hold due to NF) Status and Disposition: still with positive blood cultures, needs JEANETTE and picc line
[2017-06-14] MEDS: Insulin LISPRO* 1 UNITS UNIT SUBCUT SCH ×4 (09:18→21:58)
[2017-06-14] MEDS: Insulin GLARGINE(*) 1 UNITS UNIT SUBCUT SCH (09:26)
[2017-06-14] MEDS: metFORMIN* 500 MG TAB PO SCH (09:26)
[2017-06-14] MEDS: Lurasidone(*) 40 MG TAB PO SCH (09:26)
[2017-06-14] MEDS: Enoxaparin(*) 40 MG/0.4 ML SYR SUBCUT SCH (09:27)
[2017-06-14] MEDS: Nicotine PATCH 21 MG/24 HR* PATCH TRANSDERM SCH (09:27)
[2017-06-14] MEDS: BuPROPion XL* 300 MG TAB.XL PO SCH (09:27)
[2017-06-14] MEDS: glipiZIDE TAB* 5 MG PO SCH (09:27)
[2017-06-14] MEDS: Mometasone/Formoter 200/5 MDI INH SCH ×2 (09:29→21:05)
[2017-06-14] MEDS: Albuterol HFA INHALER* 8 gm MDI INH PRN ×2 (09:36→21:05)
[2017-06-14] MEDS: Acetaminophen TAB* 325 MG PO PRN (19:35)
[2017-06-14] MEDS: Gabapentin CAP(*) 300 MG PO SCH (19:36)
[2017-06-14] MEDS: Nicotine Patch Removal NOTE PATCH OFF SCH (19:51)
[2017-06-15] MEDS: Vancomycin(*) 1,250 MG in NS 0.9% 250 ML* 250 ML IVPB SCH ×2 (03:56→16:01)
[2017-06-15 06:07] LABS: EGFR Non-African American 76.5 (>60)
[2017-06-15] MEDS: Insulin LISPRO* 1 UNITS UNIT SUBCUT SCH ×4 (08:28→21:14)
[2017-06-15] MEDS: Albuterol HFA INHALER* 8 gm MDI INH PRN ×2 (08:41→19:44)
[2017-06-15] MEDS: Mometasone/Formoter 200/5 MDI INH SCH ×2 (08:42→19:41)
[2017-06-15] MEDS: Insulin GLARGINE(*) 1 UNITS UNIT SUBCUT SCH (09:31)
[2017-06-15] MEDS: Nicotine PATCH 21 MG/24 HR* PATCH TRANSDERM SCH (09:32)
[2017-06-15] MEDS ORDERED: Naloxone* 0.4 MG/ML 1 ML VIAL ONE (10:15)
[2017-06-15] MEDS ORDERED: fentaNYL* 50 MCG/ML 2 ML VIAL (100 MCG VIAL) ONE (10:15)
[2017-06-15] MEDS ORDERED: Flumazenil* 0.1 MG/ML 5 ML MDV ONE (10:15)
[2017-06-15] MEDS ORDERED: Lidocaine 2% VISCOUS* 15 ML UDC ONE ×3 (10:15→11:15)
[2017-06-15] MEDS ORDERED: Midazolam* 1 MG/ML 10 ML VIAL (10 MG) ONE (10:16)
--- NOTE | 2017-06-15 13:40 | TEE ---
Patient: ESTELLE HUSAIN [facility] Rec#: [id number] : 1955 Date: 06/15/2017 Age: 61y Height: 170 cm / 66.9 in Weight: 98 kg / 216.0 lbs Sex: F BSA: 2.09 Room#: [facility] Admit Date#: 06/08/2017 Type: Inpatient Referring: Billy Anderson MD Performing: Sky Mendez DO Reading: Sky Mendez DO Plastic And Reconstructive Surgeon: Aby Givens RDCS,RDMS Nurse: Enrike Glover RN Transesophageal Echocardiogram Indication: Bacteremia BP: 123/55 HR: 88 Rhythm: NSR Findings History: HTN, DM, COPD, smoker, RICHIE Technical Comments: The study quality is good. Left Ventricle: The left ventricular chamber size is normal. Left ventricular systolic function is at the lower limits of normal. Left Atrium: The left atrium is mildly dilated. There is no thrombus visualized in the left atrial appendage. Right Ventricle: The right ventricular chamber size and systolic function are within normal limits. Right Atrium: The right atrial cavity size is normal. The interatrial septum appears lipomatous. The bubble study is negative. Aortic Valve: The aortic valve is trileaflet. There is no evidence of aortic valve thickening. Systolic excursion of the aortic valve is normal. There is no evidence of aortic regurgitation. There is no evidence of aortic stenosis. There is no aortic vegetation present. Mitral Valve: The mitral valve leaflets appear normal. There is mild mitral regurgitation. There is no evidence of mitral stenosis. No vegetation is observed on the mitral valve. Tricuspid Valve: The tricuspid valve leaflets are normal. There is mild tricuspid regurgitation. No vegetation is observed on the tricuspid valve. Pulmonic Valve: The pulmonic valve appears normal. There is no evidence of pulmonic regurgitation. No vegetation is observed on the pulmonic valve. Pericardium: There is no significant pericardial effusion. Aorta: The aortic root appears normal. Pulmonary Artery: The main pulmonary artery appears normal. Venous: The inferior vena cava appears normal. The flow pattern of the pulmonary veins appear normal. The superior vena cava appears normal. JEANETTE Procedures: All standard views were attempted within the limitations of patient tolerance and safety. History and physical as well as labs were reviewed. The patient was in a fasting state. Risks and benefits of the procedure, including alternatives, were discussed and written informed consent was obtained. The patient and/or their health care community service representative expressed understanding of the procedure, risks and benefits. Baseline and continuous monitoring of blood pressure, heart rate, pulse oximetry and heart rhythm was performed throughout the procedure. The appropriate time-out procedure was performed as per [facility] protocol. The patient was placed in the left lateral decubitus position. The patient's posterior pharynx was anesthetized with 20ml of 2% viscous lidocaine. The patient received IV Midazolam with a total dose of The patient received IV Fentanyl with a total dose of An oral bite block was inserted for protection of oral dentition. The multiplane transesophageal echocardiogram probe was inserted through the posterior oropharynx and advanced into the esophagus without difficulty. Multiple 2D images were obtained of the heart and its related structures. Color flow Doppler was used for evaluation. Spectral Doppler was also used. The atrial septum was interrogated with color flow Doppler. At the conclusion of the procedure the probe was removed with continuous suction without complications. The patient tolerated the procedure with no apparent complications. Contrast: Intravenous agitated saline contrast was used to assess intracardiac shunting. Conclusions Left ventricular systolic function is at the lower limits of normal. The right ventricular chamber size and systolic function are within normal limits. Mild LA dilation Mild tricuspid and mitral regurgitation No echo evidence of endocarditis No prior JEANETTE's available for comparison at time of interpretation Measurements Name Value Normal Range Ao root diameter (2D) 2.03 cm (2.1 - 3.5) Ascending Ao 3.04 cm (2.1 - 3.4) Name Value Normal Range MV E-wave Vmax 1.28 m/sec - MV deceleration time 216.65 msec - MV A-wave Vmax 1.11 m/sec - MV E:A ratio 1.16 ratio - Name Value Normal Range MV Vmax 1.3 m/sec - MV VTI 39.44 cm - MV peak gradient 6.8 mmHg - MV mean gradient 3.71 mmHg - Name Value Normal Range TR Vmax 2.6 m/sec - TR peak gradient 27 mmHg -
[2017-06-15] MEDS: Lurasidone(*) 40 MG TAB PO SCH (14:47)
[2017-06-15] MEDS: BuPROPion XL* 300 MG TAB.XL PO SCH (14:47)
[2017-06-15] MEDS: glipiZIDE TAB* 5 MG PO SCH (14:48)
[2017-06-15] MEDS: metFORMIN* 500 MG TAB PO SCH (14:48)
[2017-06-15] MEDS: Enoxaparin(*) 40 MG/0.4 ML SYR SUBCUT SCH (14:49)
--- NOTE | 2017-06-15 16:52 | PN ---
Subjective Date of Service: 06/15/17 Interval History: No c/o. She states the food here is saltier than she is used to. Family History: Unchanged from Admission Social History: Unchanged from Admission Past Medical History: Unchanged from Admission Objective Active Medications: Acetaminophen (Tylenol Tab*) 650 mg PO Q6H PRN PRN Reason: FEVER/PAIN Last Admin: 06/14/17 19:35 Dose: 650 mg Al Hydrox/Mg Hydrox/Simethicone (Maalox Plus*) 30 ml PO Q6H PRN PRN Reason: INDIGESTION Albuterol (Ventolin 2.5 Mg/3 Ml Neb.Roseann*) 2.5 mg INH [id number] AWAKE PRN PRN Reason: sob/wheezing Albuterol (Ventolin Hfa Inhaler*) 2 puff INH Q4HR PRN PRN Reason: SHORTNESS OF BREATH Last Admin: 06/15/17 08:41 Dose: 2 puff Bupropion HCl (Bupropion Xl*) 300 mg PO DAILY [facility] Last Admin: 06/15/17 14:47 Dose: 300 mg Clotrimazole (Gyne-Lotrimin 1% Vaginal Cream*) 1 applic VAGINAL BEDTIME MYKE Device (Nicotine Mouth Piece*) 1 each INH .USE WITH NICOTROL PRN PRN Reason: CRAVING Last Admin: 06/13/17 08:04 Dose: 1 each Dextrose (D50w Syringe 50 Ml*) 12.5 gm IV PUSH .FOR FS < 60 - SS PRN PRN Reason: FS < 60 Docusate Sodium (Colace Cap*) 100 mg PO DAILY PRN PRN Reason: CONSTIPATION Enoxaparin Sodium (Lovenox(*)) 40 mg SUBCUT Q24H [facility] Last Admin: 06/15/17 14:49 Dose: 40 mg Furosemide (Lasix Tab*) 20 mg PO DAILY PRN PRN Reason: PER PROTOCOL Gabapentin (Neurontin Cap(*)) 600 mg PO BEDTIME [facility] Last Admin: 06/14/17 19:36 Dose: 600 mg Glipizide (Glucotrol Tab*) 5 mg PO DAILY [facility] Last Admin: 06/15/17 14:48 Dose: 5 mg Heparin Sodium (Porcine) (Heparin Flush Picc/Ml/Cvc(*)) 1 - 3 ml FLUSH 0600, 1800 [facility] PRN Reason: Protocol Vancomycin HCl 1,250 mg/ (Sodium Chloride) 250 mls @ 166.667 mls/hr IVPB Q12H [facility] Last Admin: 06/15/17 16:01 Dose: 166.667 mls/hr Ibuprofen (Motrin Tab*) 400 mg PO Q6H PRN PRN Reason: fever/pain Last Admin: 06/08/17 23:43 Dose: 400 mg Insulin Glargine (Lantus(*)) 54 units SUBCUT Q24H [facility] Last Admin: 06/15/17 09:31 Dose: 54 units Insulin Human Lispro (Humalog*) 0 units SUBCUT ACHS [facility] PRN Reason: Protocol Last Admin: 06/15/17 14:05 Dose: Not Given Lurasidone HCl (Latuda) 40 mg PO DAILY [facility] Last Admin: 06/15/17 14:47 Dose: 40 mg Metformin HCl (Glucophage*) 1,000 mg PO DAILY [facility] Last Admin: 06/15/17 14:48 Dose: 1,000 mg Mometasone Furoate/Formoterol Fumar (Dulera 200/5 Mdi*) 2 puff INH BID [facility] Last Admin: 06/15/17 08:42 Dose: 2 puff Nicotine (Nicotine Patch 21 Mg/24 Hr*) 1 patch TRANSDERM DAILY [facility] Last Admin: 06/15/17 09:32 Dose: 1 patch Nicotine (Nicotine Inhaler*) 10 mg INH Q2H PRN PRN Reason: CRAVING Last Admin: 06/13/17 08:03 Dose: 10 mg Pharmacy Consult (Vancomycin Per Pharmacy*) 1 note FOLLOW UP . PRN PRN Reason: PER PROTOCOL Pharmacy Profile Note (Nicotine Patch Removal Note*) 1 note PATCH OFF 2100 [facility] Last Admin: 06/14/17 19:51 Dose: Not Given Pharmacy Profile Note (Vancomycin Trough Check) 1 note FOLLOW UP 1530 ONE Stop: 06/16/17 15:31 Vital Signs - 8 hr 06/15/17 06/15/17 06/15/17 14:18 15:08 15:12 Temperature 98.0 F 97.7 F Pulse Rate 65 68 Respiratory 14 16 Rate Blood Pressure 133/70 135/78 (mmHg) O2 Sat by Pulse 98 97 Oximetry Oxygen Devices in Use Now: None Appearance: Alert, in a chair. In good spirits. Looks comfortable. Eyes: No Scleral Icterus Respiratory: Symmetrical Chest Expansion and Respiratory Effort, Clear to Auscultation, Clear to Percussion Cardiovascular: NL Sounds; No Murmurs; No JVD, RRR, No Edema, - Extremities: No Clubbing, Cyanosis, - - Tr edema BL Skin: No Nodules or Sclerosis, - - Lower legs hyperpigmented. Neurological: Alert and Oriented x 3, NL Sensation Result Diagrams: 06/12/17 05:12 06/15/17 05:29 Additional Lab and Data: . Microbiology and Other Data: Microbiology 06/08/17 11:20 CSF Gram Stain (Tube 3) - Final Cerebral Spinal Fluid CSF Culture - Preliminary No Growth Day 1 06/08/17 21:50 Nasal Screen MRSA (PCR)([facility]) - Final Nasal Mrsa Detected Assess/Plan/Problems-Billing . Assessment: 61 yo female with DM-II, obesity admitted with delirium, found to have elevated protein in her CSF and blood cultures positive for MRSA. Initially was thought to have viral/aseptic meningitis/encephalitis, but with ongoing positive blood cultures, etiology of delirium is most likely staph bacteremia. . - Patient Problems (1) Wound cellulitis Current Visit: Yes Status: Acute Code(s): L03.90 - CELLULITIS, UNSPECIFIED SNOMED Code(s): 743997644 Comment: Cellulitic component has resolved. Continue vancomycin for MRSA bacteremia, will not need antibiotic for the wound itself. (2) Diabetes Current Visit: Yes Status: Acute Code(s): E11.9 - TYPE 2 DIABETES MELLITUS WITHOUT COMPLICATIONS SNOMED Code(s): 66594485 Comment: Restarted metformin and glipizide 06/11. Pt states she takes Lantus 58 U daily at home plus Victoza 1.2 nl. Reduce Lantus to 48 U q AM 06/16. Liraglutide not available. (3) Tobacco abuse Current Visit: Yes Status: Acute Code(s): Z72.0 - TOBACCO USE SNOMED Code( s): 585416065 Comment: Pt advised to quit smoking and avoid second hand smoke. (4) Psychiatric diagnosis Current Visit: Yes Status: Acute Code(s): F99 - MENTAL DISORDER, NOT OTHERWISE SPECIFIED SNOMED Code(s): 51445117 Comment: Continue lurasidone, re-start buproprion, hold citalopram. (5) MRSA bacteremia Current Visit: Yes Status: Acute Code(s): R78.81 - BACTEREMIA SNOMED Code( s): 43399921040439870 Comment: Likely due to abdominal wall excoriation, no cellulitis. I don't believe there is a deeper soft tissue infection. Blood cultures remain positive 06/08, 06/11, 06/13. This morning's are pending. Echo 06/12 was of poor quality. JEANETTE no evidence of endocarditis. Continue vanco per pharmacy. PICC line inserted 06/15. Blood C&S from 06/14 positive. Repeat blood C&S x 2 on 06/16. Dr. Aguirre will consult 06/15. Status and Disposition: still with positive blood cultures, needs JEANETTE and picc line
[2017-06-15] MEDS ORDERED: Insulin GLARGINE(*) 1 UNITS UNIT SUBCUT SCH (17:00)
[2017-06-15] MEDS: Gabapentin CAP(*) 300 MG PO SCH (20:57)
[2017-06-15] MEDS ORDERED: Clotrimazole 1% VAGINAL CREAM* 45 GM VAGINAL SCH (21:00)
[2017-06-15] MEDS: Nicotine Patch Removal NOTE PATCH OFF SCH (21:25)
[2017-06-16] MEDS: Vancomycin(*) 1,250 MG in NS 0.9% 250 ML* 250 ML IVPB SCH ×2 (03:53→15:19)
[2017-06-16 06:12] LABS: ABS Basophils 0 10^3/ul (0-0.2); ABS Eosinophils 0.3 10^3/ul (0-0.6); ABS Monocytes 0.9 10^3/ul (0-0.8); ABS Neutrophils 5.6 10^3/ul (1.5-7.7); ABS Nucleated RBC 0 10^3/ul; Eosinophil % 3.7 % (0-6); Hematocrit 33 % (35-47); Hemoglobin 11.6 g/dl (12.0-16.0); Lymphocyte % 22.1 % (25-47); Mean Corpuscular HGB Conc 35 g/dl (31-36); Mean Corpuscular Hemoglobin 36 pg (27-31); Mean Corpuscular Volume 102 fL (80-97); Mean Platelet Volume 7.7 um3 (7.4-10.4); Nucleated Red Blood Cells % 0; Platelet Count 309 10^3/ul (150-450); Red Blood Count 3.24 10^6/ul (4.0-5.4); Red Cell Distribution Width 13 % (10.5-15); White Blood Count 8.9 10^3/ul (3.5-10.8)
[2017-06-16] MEDS: Insulin LISPRO* 1 UNITS UNIT SUBCUT SCH ×2 (08:45→11:48)
[2017-06-16] MEDS ORDERED: Insulin GLARGINE(*) 1 UNITS UNIT SUBCUT SCH (09:00)
[2017-06-16] MEDS: Albuterol HFA INHALER* 8 gm MDI INH PRN (09:25)
[2017-06-16] MEDS: Mometasone/Formoter 200/5 MDI INH SCH (09:25)
[2017-06-16] MEDS: Nicotine PATCH 21 MG/24 HR* PATCH TRANSDERM SCH (09:31)
[2017-06-16] MEDS: glipiZIDE TAB* 5 MG PO SCH (09:33)
[2017-06-16] MEDS: metFORMIN* 500 MG TAB PO SCH (09:33)
[2017-06-16] MEDS: Lurasidone(*) 40 MG TAB PO SCH (09:33)
[2017-06-16] MEDS: BuPROPion XL* 300 MG TAB.XL PO SCH (09:33)
[2017-06-16] MEDS: Enoxaparin(*) 40 MG/0.4 ML SYR SUBCUT SCH (09:34)
--- NOTE | 2017-06-16 14:28 | PN ---
Progress Note - Progress Note Date of Service: 06/16/17 Note: Time spent on discharge 50 minutes.
[2017-06-16 14:53] VITALS: BP 133/70
[2017-06-16] MEDS ORDERED: Vancomycin Trough Check NOTE FOLLOW UP ONE (15:30)
--- NOTE | 2017-06-16 21:15 | CONS ---
CONSULTATION REPORT: DATE OF CONSULT: 06/16/17 REQUESTING PHYSICIAN: Dr. Anderson. CONSULTING SERVICE: Infectious Disease. REASON FOR CONSULT: MRSA bacteremia. IMPRESSION: 1. Persistent MRSA bacteremia for the last 6 days while on vancomycin. She also had bacteremia detected in the ER on 06/08/17. The source at this point looks to be her chronic abdominal wound which is fairly superficial, but it was associated with cellulitis and purulent drainage at the time of admission. There is no culture taken of that area this admission, but she grew MRSA there in 2015 and 2014. She has no prosthetic material present. She has no spine or joint pain. She has no evidence of infective endocarditis by transesophageal echocardiogram. 2. Morbid obesity. 3. Chronic abdominal wound. This just started as an abscess. 4. Diabetes. 5. Hypertension. 6. Encephalopathy was present on admission and resolved. RECOMMENDATIONS: Continue vancomycin goal trough 15 to 20. Recheck another set of blood cultures today. Weekly CBC, CMP, CRP, and vancomycin trough. Plan on 3 weeks of antibiotics. The followup will be next week. HISTORY OF PRESENT ILLNESS: This is a 61-year-old woman admitted with change in mental status, fever, and chills and feeling sick. It had been going on about a week before she came into the hospital on the . She came to the hospital on the morning of , noting fatigue at that time. She was admitted , thought to have pneumonia. She was started on ceftriaxone, doxycycline. Blood cultures taken came back MRSA. She was switched to vancomycin which she has tolerated well. She had an allergy to it in the past that included urticaria, has not experienced that this go-round. Blood cultures were rechecked on the , 4/4 positive; on the , 1/4 positive; the 1st, 4/4 positive; the 2nd, 1/4 positive. She has had no fever since 06/11/17. Her appetite and energy is good. She has no back or joint pain. She denies any prosthetic material being present. She is feeling back to her usual self and anxious to go home. She had a transesophageal echocardiogram that showed no vegetation. She has had a right upper abdominal wound for a couple of years that started as an abscess that she has continued to pick at. It has been followed by her primary provider and by the wound clinic and yet did persist. She had some redness and drainage at the site apparently at the time of her admission, which is now resolved. She thinks it is improving since she has been here. PAST MEDICAL HISTORY: 1. Morbid obesity. 2. Diabetes. 3. Hypertension. 4. Depression. 5. Emphysema. 6. Hyperlipidemia. 7. Gastroesophageal reflux disease. MEDICATIONS: 1. Tylenol. 2. Albuterol. 3. Bupropion. 4. Clotrimazole. 5. Dextrose. 6. Docusate. 7. Enoxaparin. 8. Lasix. 9. Gabapentin. 10. Glipizide. 11. Insulin glargine 48 units. 12. Lurasidone. 13. Metformin. 14. Nicotine inhaler. 15. Nicotine patch. 16. Vancomycin 1250 mg IV every 12 hours. ALLERGIES: ASPIRIN; VANCOMYCIN caused hives. FAMILY HISTORY: No recurrent infections. SOCIAL HISTORY: She lives in [facility] by herself. She has no travel or sick contacts. She is a past smoker. Rare alcohol. REVIEW OF SYSTEMS: A 14-point review of systems was negative except as noted above. PHYSICAL EXAM: Vital Signs: Temperature is 36.4, heart rate 70, respiratory rate 16, blood pressure 146/69, oxygen saturation 97% on room air. In general, she is awake and not in distress. Neurologic: She is oriented x3. Follows all commands. HEENT: There is no thrush or conjunctival hemorrhage. Oropharynx without lesions. Neck is supple without mass. Lymph Nodes: There is no inguinal, axillary, or epitrochlear lymphadenopathy. Heart is regular rate and rhythm without murmurs, rubs, or gallops. Lungs: Clear to auscultation bilaterally. Abdomen: Soft, nontender, nondistended. There are bowel sounds present. There is a right upper abdominal ovoid 3 cm superficial wound with some granulation at the base without skin erythema or drainage. Musculoskeletal: No spine tenderness to palpation or joint cellulitis. Skin: There is no rash or splint hemorrhages. DIAGNOSTIC STUDIES/LAB DATA: White blood cell count 9, hemoglobin 11, platelets 309,000. Creatinine is 0.7. CRP 41, down from 105. Urinalysis at admission showed protein. Lumbar puncture showed 3 white cells. Influenza PCR was negative. Please see impressions and recommendations outlined above, which I have discussed with Dr. Anderson. Thank you for asking me to see Ms. Roy in consultation. [id number]/[facility] #: [id number] MTDD
--- NOTE | 2017-06-17 04:58 | DS ---
CC: Jada Alvarez NP; Dr. Aguirre * DISCHARGE SUMMARY: DATE OF ADMISSION: DATE OF DISCHARGE: 06/16/17 HOSPITAL COURSE: This 61-year-old woman came complaining of malaise. The history is detailed in the admission note. She was felt to have sepsis. Her temperature was 104.1. She was initially treated with ceftriaxone and doxycycline. Her blood cultures quickly grew out methicillin-resistant Staphylococcus aureus. She was treated with vancomycin. She was also given some piperacillin and tazobactam for an abdominal wound. When I saw her, she had cellulitis around the wound that has completely resolved. The wound itself was very superficial. It was quite chronic and looked like it would heal well. She had an echocardiogram, which is of poor quality due to body habitus. She had a transesophageal echocardiogram, which showed no evidence of bacterial vegetations and was otherwise unremarkable. Multiple blood cultures continued to grow out MRSA. The last set of 2 sets of blood cultures on 06/15/17 are no growth day one at the time of this dictation. She defervesced her mental status which are quickly to normal. Her white count was never very high, it went from 9.9 to 8.9. Her CRP fell significantly from 105.77 to 40.68 during this hospital stay. She will be followed by Dr. Aguirre as an outpatient. FINAL DIAGNOSES: 1. Methicillin-resistant Staphylococcus aureus bacteremia. 2. Diabetes mellitus. 3. Tobacco abuse. 4. Psychiatric disorder. DISCHARGE MEDICATIONS: 1. Glargine insulin 48 units daily at 9 a.m. 2. Topiramate 100 mg b.i.d. 3. Albuterol inhaler 2 puffs every 4 hours p.r.n. 4. Albuterol by nebulizer every 6 hours p.r.n. 5. Fluticasone/salmeterol 500/50 one puff b.i.d. 6. Accolate 20 mg daily. 7. Vitamin B12 2500 mcg daily. 8. Liraglutide 1.2 mg subcu daily. 9. Furosemide 20 mg daily p.r.n. 10. Glipizide 5 mg daily. 11. Ipratropium 2 puffs inhaler t.i.d. 12. Ranitidine 150 mg daily. 13. Trazodone 200 mg h.s. 14. Lurasidone 40 mg daily. 15. Bupropion XL 300 mg daily. 16. Calcium with D3 one tablet daily. 17. Omeprazole 20 mg daily. 18. Simvastatin 40 mg daily. 19. Docusate 100 mg daily. 20. Metformin 1000 mg daily. 21. Vitamin D3 2000 units daily. 22. Loratadine 10 mg daily. 23. Gabapentin 600 mg daily. 24. Nicotine gum 4 mg every hour p.r.n. 25. Vancomycin per Dr. Aguirre's rx. [id number]/[facility] #: [id number] [facility]
== END 2017-06-16 17:16 | disposition home or self-care (01) | DRG 383 ==
LOC: ED 02:08 → MEDTELE 10:27 → SSU 06-11 00:41
PROVIDERS: ADMIT Internal Medicine; ATTEND Internal Medicine
PROC: 009U3ZX Drainage of Spinal Canal, Percutaneous Approach, Diagnostic (ICD-10-PCS; 2017-06-08)
PROC: 05HY33Z Insertion of Infusion Device into Upper Vein, Percutaneous Approach (ICD-10-PCS; 2017-06-15)
PROC: B246ZZ4 Ultrasonography of Right and Left Heart, Transesophageal (ICD-10-PCS; principal; 2017-06-15 10:00)
DX: L03.311 Cellulitis of abdominal wall (principal); G93.40 Encephalopathy, unspecified; R78.81 Bacteremia; S30.811A Abrasion of abdominal wall, initial encounter; E11.65 Type 2 diabetes mellitus with hyperglycemia; F17.210 Nicotine dependence, cigarettes, uncomplicated; I87.8 Other specified disorders of veins; B95.62 Methicillin resistant Staphylococcus aureus infection as the cause of diseases classified elsewhere; R41.0 Disorientation, unspecified; I10 Essential (primary) hypertension; F99 Mental disorder, not otherwise specified; J43.9 Emphysema, unspecified; E78.5 Hyperlipidemia, unspecified; E66.01 Morbid (severe) obesity due to excess calories; K21.9 Gastro-esophageal reflux disease without esophagitis; Z68.33 Body mass index [BMI] 33.0-33.9, adult; Z79.4 Long term (current) use of insulin; Z79.84 Long term (current) use of oral hypoglycemic drugs; Z79.899 Other long term (current) drug therapy
CPT/HCPCS: 36415; 70450; 71045; 80048; 80053; 80076; 80202; 80320; 80329; 81003; 81015; 82248; 82803; 82945; 83036; 83605; 83735; 83880; 84157; 85025; 85610; 85730; 86140; 87040; 87070; 87077; 87150; 87186; 87205; 87502; 87529; 87641; 89051; 93005; 93306; 93312; 93325; 94640; 99156; 99157; 99283; 99406; A9270-GY; C8929; G0480; J0133; J0692; J0696; J1650; J2020; J2185; J2250; J2310; J2543; J3010; J3370

== ENCOUNTER 2017-10-06 10:01 | Emergency (ER) | payer OTHER ==
--- OUTSIDE RECORDS SUMMARY | 2017-10-06 10:23 | XMS REPORT ---
:1955 External Reference #:[id number] Author Organization [email or web address] Address [address] [place] [address] [place] [address] Phone [phone] Care Team Providers Name Role Phone Jada Alvarez NP Primary Care Physician Unavailable Payers Type Date Identification Numbers Payment Provider Subscriber Commercial Policy Number: [id number] Jona I[employer] Name: [id number] [address] PayID: [id number] [place] [address] Problems Date Description Provider Status Onset: 01/02/2014 Obstructive sleep apnea syndrome Earnestine Cisse M.D. Active Onset: 01/02/2014 Chest pain Earnestine Cisse M.D. Active Onset: 01/02/2014 Palpitations Earnestine Cisse M.D. Active Onset: 08/29/2016 Morbid obesity Deidre Trent DNP, RN, Active [facility] Family History Date Family Member(s) Problem(s) Comments General Depression Maternal Aunt General Congestive Heart Failure (CHF) Paternal grandparents of Father Congestive Heart Failure (CHF) in 50s Mother lymphoma and lung cancer in 50s Siblings 5 some with CAD Social History Type Date Description Comments Marital Status Single Lives With Alone Occupation Unemployed Cigarette Use current cigarette smoker ETOH Use Denies alcohol use Smoking Patient is a current smoker, smokes 1/2 ppd every day Recreational Drug Use Denies Drug Use Smoking Heavy tobacco smoker (more than 10 cigarettes/day) Daily Caffeine Consumes on average 2 sodas per day not every day Daily Caffeine Consumes on average 3 cups of regular coffee per day Exercise Type/Frequency Exercises sporadically Walks at [employer]. General Hx Text Allergies, Adverse Reactions, Alerts Date Description Reaction Status Severity Comments 07/29/2013 Aspirin active 07/29/2013 Augusto's Vapor Rub active 08/09/2015 Vancomycin active hives Medications Medication Date Status Form Strength Qnty SIG Indications Ordering Provider Bupropion HCL 09/11 Active Tablets ER 150mg 30tab once daily in [employer] AStaybeh ER (XL) 24HR s the morning S. with food Danitzaydah M.DNuno Bupropion HCL 09/11 Active Tablets ER 300mg 30tab 1 by mouth Qutaybeh ER (XL) 24HR s every day with S. food and along Maghaydah with one 150 , M.D. mg bupropion Escitalopram 09/11 Active Tablets 10mg 30tab 1 by mouth [employer] s every day S. (takes with 20 Maghaydah mg , M.D. escitalopram) Advair Diskus 08/29 Active Aerosol 500-50mcg inhale 1 dose Quyb /Dose by mouth twice S. a day Tere Cisse Ranitidine HCL Active Capsules 150mg 180ca 1 by mouth qd Unknown /0000 ps Voltaren Active Gel 1% 1tube apply to Unknown /0000 s affected area twice a day, as needed Vitamin B-12 Active Tablets 2500mcg 1 by mouth Unknown /0000 Sub every day Furosemide Active Tablets 20mg 7tabs 1 by mouth Unknown /0000 every morning Victoza Active Sopn 18mg/3ML 30uni inject 1.2 MG Unknown /0000 ts into fatty tissue Colace Active Capsules 100mg 60cap 1 by mouth qd Unknown /0000 s Lisinopril Active Tablets 2.5mg 30tab 1 by mouth Unknown /0000 s every day Omeprazole Active Capsules 20mg 90cap 1 by mouth Unknown /0000 DR s twice a day Metformin HCL Active Tablets 500mg 60tab 2 by mouth Unknown /0000 s daily Simvastatin Active Tablets 40mg 90tab 1 by mouth Unknown /0000 s every night at bedtime Lantus Active Sopn 100Unit/M 50 units q am Unknown Solostar /0000 L Albuterol Active Nebulizer (2.5mg/3M 100un 1 vial via Unknown Sulfate /0000 L) 0.083% its nebulizer 4 times daily as needed Zafirlukast Active Tablets 20mg 90tab 1 by mouth Unknown /0000 s every day Calcium + Active Tablets 600-400mg 90tab 1 by mouth Unknown Vitamin D /0000 s every day Ventolin HFA Active Aerosol 108(90Bas 1mont 2 puffs by Unknown / e) h mouth four mcg/Act times a day as needed Topamax Active Tablets 100mg 60tab 1 by mouth bid Unknown / s Wellbutrin XL Active Tablets ER 300mg 90tab 1 1/2 po qd 24HR s Trazodone HCL Active Tablets 100mg 30tab 1 by mouth Unknown / s every night at bedtime T.E.D. Below Active Misc Unknown Knee/Large /0000 Laclotion Active Lotion 12% apply small Unknown / amount prn Nebulizer Active Device use for Unknown albuterol nebulized solution up to 4 times a day. Vitamin D Active Tablets 1000Unit 2 by mouth Unknown / every day Triple Active Ointment 1% apply bid Unknown Antibiotic until healed Plus Nicoderm CQ Active Patches 21mg/24HR topical every 24HR morning, pt has not used yet Betamethasone Active Cream 0.05% apply three Unknown Dipropionate /0000 times a day to area of itching Glipizide ER Active Tablets ER 5mg 1 by mouth Unknown 24HR every day at lunch Loratadine Active Tablets 10mg 1 by mouth Unknown / every day Latuda Active Tablets 20mg 1 tab po Unknown / nightly Escitalopram Active Tablets 20mg 1 by mouth Unknown Oxalate every day (pt takes with 10 mg escitalopram ) Advair Diskus 08/13 Hx Aerosol 250-50mcg 180un 1 puff by Qutaybeh /2016 /Dose its mouth twice a S. - day Maghaydah 08/29 , Tere /2016 Percocet 01/30 Hx Tablets 5-325mg 60tab 1-2 po q4-6h Yuri s prn pain Juan Alegre M.DNuno 07/28 Percocet 01/27 Hx Tablets 5-325mg 60tab 1-2 po q4-6h Nayeli s prn pain Juan Velez MTangela 01/27 No Active 01/27 Hx Unknown Medications /2012 - 01/27 Spiriva Hx Capsules 18mcg 90cap 1 inhalation Unknown Handihaler /0000 s by mouth every - morning 08/12 Allergy Relief Hx Tablets 10mg 30tab take one Unknown /0000 s tablet by - mouth once 01/21 daily as needed Lexapro Hx Tablets 10mg 30tab 1 by mouth Unknown /0000 s every day - 01/21 Lorazepam Hx Tablets 1mg 90tab 1 every 6 Unknown /0000 s hours as - needed 01/21 Naproxen Hx Tablets 500mg 1 tablet with Unknown /0000 food by mouth - twice a day 01/19 Clotrimazole 00 Hx Cream 1% apply tid Unknown /0000 - 01/21 Clindamycin Hx Cream 2% one applicator Unknown Phosphate /0000 intravaginally - at bedtime for 01/21 7 Vancomycin HCL 00 Hx Solution 750mg iv every 12 Unknown /0000 Rec hours x 21 - days through 07/07 [facility] infusion (end date 07/07/17) Vital Signs Date Vital Result Comment 09/11/2017 Height 67 inches 5'7" Weight 213.00 lb w/shoes Heart Rate 84 /min BP Systolic Sitting 132 mmHg rue lg cuff BP Diastolic Sitting 82 mmHg rue lg cuff BMI (Body Mass Index) 33.4 kg/m2 Ejection Fraction 45-50% echo 06/12/2017 07/22/2017 Height 67 inches 5'7" Weight 217.38 lb Heart Rate 72 /min BP Systolic Sitting 110 mmHg BP Diastolic Sitting 60 mmHg Respiratory Rate 14 /min Body Temperature 98.3 F BMI (Body Mass Index) 34.0 kg/m2 06/30/2017 Height 67 inches 5'7" Weight 209.00 lb Heart Rate 72 /min BP Systolic Sitting 104 mmHg BP Diastolic Sitting 64 mmHg Respiratory Rate 14 /min Body Temperature 98.5 F BMI (Body Mass Index) 32.7 kg/m2 12/05/2016 Height 67 inches 5'7" Weight 217.00 lb Heart Rate 72 /min BP Systolic Sitting 100 mmHg BP Diastolic Sitting 62 mmHg Respiratory Rate 14 /min O2 % BldC Oximetry 96 % BMI (Body Mass Index) 34.0 kg/m2 08/29/2016 Height 67 inches 5'7" Weight 219.00 lb Heart Rate 64 /min BP Systolic Sitting 108 mmHg BP Diastolic Sitting 76 mmHg Respiratory Rate 16 /min Body Temperature 97.4 F O2 % BldC Oximetry 97 % BMI (Body Mass Index) 34.3 kg/m2 08/13/2016 Height 67 inches 5'7" Weight 212.75 lb w/shoes Heart Rate 84 /min BP Systolic Sitting 108 mmHg LA, large BP Diastolic Sitting 60 mmHg LA, large BMI (Body Mass Index) 33.3 kg/m2 Ejection Fraction 55-60% echo 11/07/15 01/23/2016 Height 67 inches 5'7" Weight 209.00 lb with shoes Heart Rate 88 /min BP Systolic Sitting 110 mmHg LA lrg cuff BP Diastolic Sitting 64 mmHg LA lrg cuff BMI (Body Mass Index) 32.7 kg/m2 Ejection Fraction 55%-60% echo 11/07/15 08/09/2015 Height 67 inches 5'7" Weight 215.50 lb with shoes Heart Rate 72 /min BP Systolic 126 mmHg LA reg cuff BP Diastolic 82 mmHg LA reg cuff BMI (Body Mass Index) 33.7 kg/m2 Ejection Fraction 45%-50% 06/26/14 echo 01/04/2015 Height 67 inches 5'7" Weight 238.00 lb w/ shoes Heart Rate 68 /min reg BP Systolic Sitting 118 mmHg LA, lg cuff BP Diastolic Sitting 72 mmHg LA, lg cuff BMI (Body Mass Index) 37.3 kg/m2 Ejection Fraction 45-50% 06/26/14 ECHO 01/02/2014 Height 67 inches 5'7" Weight 249.75 lb Heart Rate 80 /min BP Systolic 115 mmHg right, large BP Diastolic 70 mmHg right, large BP Systolic Sitting 118 mmHg left. large BP Diastolic Sitting 74 mmHg left. large BMI (Body Mass Index) 39.1 kg/m2 07/29/2013 Heart Rate 80 /min Results Test Date Test Result H/L Range Note CBC Auto Diff 07/06/2017 White Blood Count 8.1 10^3/uL 3.5-10.8 1 Red Blood Count 3.93 10^6/uL Low 4.0-5.4 1 Hemoglobin 13.8 g/dL 12.0-16.0 1 Hematocrit 40 % 35-47 1 Mean Corpuscular Volume 101 fL High 80-97 1 Mean Corpuscular Hemoglobin 35 pg High 27-31 1 Mean Corpuscular HGB Conc 35 g/dL 31-36 1 Red Cell Distribution Width 14 % 10.5-15 1 Platelet Count 226 10^3/uL 150-450 1 Mean Platelet Volume 8.8 um3 7.4-10.4 1 Abs Neutrophils 4.5 10^3/uL 1.5-7.7 1 Abs Lymphocytes 2.5 10^3/uL 1.0-4.8 1 Abs Monocytes 0.6 10^3/uL 0-0.8 1 Abs Eosinophils 0.5 10^3/uL 0-0.6 1 Abs Basophils 0.1 10^3/uL 0-0.2 1 Abs Nucleated RBC 0 10^3/uL 1 Granulocyte % 55.2 % 38-83 1 Lymphocyte % 30.2 % 25-47 1 Monocyte % 7.4 % High 0-7 1 Eosinophil % 6.0 % 0-6 1 Basophil % 1.2 % 0-2 1 Nucleated Red Blood Cells % 0.3 1 Comp Metabolic Panel 07/06/2017 Sodium 138 mmol/L Low 139-145 1 Potassium 4.4 mmol/L 3.5-5.0 1 Chloride 107 mmol/L 101-111 1 Co2 Carbon Dioxide 23 mmol/L 22-32 1 Anion Gap 8 mmol/L 2-11 1 Glucose 239 mg/dL High 70-100 1 Blood Urea Nitrogen 13 mg/dL 6-24 1 Creatinine 0.94 mg/dL 0.51-0.95 1 BUN/Creatinine Ratio 13.8 8-20 1 Calcium 9.9 mg/dL 8.6-10.3 1 Total Protein 6.5 g/dL 6.4-8.9 1 Albumin 3.8 g/dL 3.2-5.2 1 Globulin 2.7 g/dL 2-4 1 Albumin/Globulin Ratio 1.4 1-3 1 Total Bilirubin 0.40 mg/dL 0.2-1.0 1 Alkaline Phosphatase 76 U/L 34-104 1 Alt 16 U/L 7-52 1 Ast 13 U/L 13-39 1 Egfr Non- 60.7 >60 1 Egfr 78.1 >60 1, 2 Laboratory test finding 07/06/2017 Vancomycin Trough 8.8 g/mL 1, 3 C Reactive Protein 3.74 mg/L < 5.00 1, 4 CBC Auto Diff 06/29/2017 White Blood Count 8.1 10^3/uL 3.5-10.8 5 Red Blood Count 4.06 10^6/uL 4.0-5.4 5 Hemoglobin 14.4 g/dL 12.0-16.0 5 Hematocrit 41 % 35-47 5 Mean Corpuscular Volume 101 fL High 80-97 5 Mean Corpuscular Hemoglobin 36 pg High 27-31 5 Mean Corpuscular HGB Conc 35 g/dL 31-36 5 Red Cell Distribution Width 13 % 10.5-15 5 Platelet Count 231 10^3/uL 150-450 5 Mean Platelet Volume 9.2 um3 7.4-10.4 5 Abs Neutrophils 4.7 10^3/uL 1.5-7.7 5 Abs Lymphocytes 2.3 10^3/uL 1.0-4.8 5 Abs Monocytes 0.7 10^3/uL 0-0.8 5 Abs Eosinophils 0.3 10^3/uL 0-0.6 5 Abs Basophils 0.1 10^3/uL 0-0.2 5 Abs Nucleated RBC 0 10^3/uL 5 Granulocyte % 58.0 % 38-83 5 Lymphocyte % 28.1 % 25-47 5 Monocyte % 9.0 % High 0-7 5 Eosinophil % 3.7 % 0-6 5 Basophil % 1.2 % 0-2 5 Nucleated Red Blood Cells % 0.1 5 Comp Metabolic Panel 06/29/2017 Sodium 133 mmol/L Low 139-145 5 Potassium 4.4 mmol/L 3.5-5.0 5 Chloride 101 mmol/L 101-111 5 Co2 Carbon Dioxide 23 mmol/L 22-32 5 Anion Gap 9 mmol/L 2-11 5 Glucose 424 mg/dL High 70-100 5 Blood Urea Nitrogen 22 mg/dL 6-24 5 Creatinine 1.06 mg/dL High 0.51-0.95 5 BUN/Creatinine Ratio 20.8 High 8-20 5 Calcium 9.9 mg/dL 8.6-10.3 5 Total Protein 7.0 g/dL 6.4-8.9 5 Albumin 3.8 g/dL 3.2-5.2 5 Globulin 3.2 g/dL 2-4 5 Albumin/Globulin Ratio 1.2 1-3 5 Total Bilirubin 0.40 mg/dL 0.2-1.0 5 Alkaline Phosphatase 83 U/L 34-104 5 Alt 15 U/L 7-52 5 Ast 10 U/L Low 13-39 5 Egfr Non- 52.9 >60 5 Egfr 68.0 >60 5, 6 Laboratory test finding 06/29/2017 Vancomycin Trough 11.0 g/mL 5, 7 C Reactive Protein 4.12 mg/L < 5.00 5, 8 Basic Metabolic Panel 06/24/2017 Sodium 136 mmol/L Low 139-145 Potassium 4.7 mmol/L 3.5-5.0 Chloride 102 mmol/L 101-111 Co2 Carbon Dioxide 26 mmol/L 22-32 Anion Gap 8 mmol/L 2-11 Glucose 329 mg/dL High 70-100 Blood Urea Nitrogen 25 mg/dL High 6-24 Creatinine 1.22 mg/dL High 0.51-0.95 BUN/Creatinine Ratio 20.5 High 8-20 Calcium 9.9 mg/dL 8.6-10.3 Egfr Non- 45.0 >60 Egfr 57.8 >60 9 Laboratory test finding 06/24/2017 Vancomycin Trough 21.8 g/mL CBC Auto Diff 06/22/2017 White Blood Count 8.6 10^3/uL 3.5-10.8 Red Blood Count 4.03 10^6/uL 4.0-5.4 Hemoglobin 14.2 g/dL 12.0-16.0 Hematocrit 41 % 35-47 Mean Corpuscular Volume 101 fL High 80-97 Mean Corpuscular Hemoglobin 35 pg High 27-31 Mean Corpuscular HGB Conc 35 g/dL 31-36 Red Cell Distribution Width 13 % 10.5-15 Platelet Count 303 10^3/uL 150-450 Mean Platelet Volume 8.6 um3 7.4-10.4 Abs Neutrophils 5.4 10^3/uL 1.5-7.7 Abs Lymphocytes 2.1 10^3/uL 1.0-4.8 Abs Monocytes 0.7 10^3/uL 0-0.8 Abs Eosinophils 0.3 10^3/uL 0-0.6 Abs Basophils 0.1 10^3/uL 0-0.2 Abs Nucleated RBC 0 10^3/uL Granulocyte % 62.9 % 38-83 Lymphocyte % 24.5 % Low 25-47 Monocyte % 8.0 % High 0-7 Eosinophil % 3.6 % 0-6 Basophil % 1.0 % 0-2 Nucleated Red Blood Cells % 0 Comp Metabolic Panel 06/22/2017 Sodium 134 mmol/L Low 139-145 Potassium 4.5 mmol/L 3.5-5.0 Chloride 98 mmol/L Low 101-111 Co2 Carbon Dioxide 27 mmol/L 22-32 Anion Gap 9 mmol/L 2-11 Glucose 373 mg/dL High 70-100 Blood Urea Nitrogen 17 mg/dL 6-24 Creatinine 1.13 mg/dL High 0.51-0.95 BUN/Creatinine Ratio 15.0 8-20 Calcium 10.3 mg/dL 8.6-10.3 Total Protein 7.2 g/dL 6.4-8.9 Albumin 3.7 g/dL 3.2-5.2 Globulin 3.5 g/dL 2-4 Albumin/Globulin Ratio 1.1 1-3 Total Bilirubin 0.40 mg/dL 0.2-1.0 Alkaline Phosphatase 74 U/L 34-104 Alt 15 U/L 7-52 Ast 12 U/L Low 13-39 Egfr Non- 49.1 >60 Egfr 63.2 >60 10 Laboratory test finding 06/22/2017 Vancomycin Trough 21.2 g/mL C Reactive Protein 11.40 mg/L High < 5.00 11 Comp Metabolic Panel 02/05/2014 Sodium 135 mmol/L 133-145 Potassium 4.2 mmol/L 3.5-5.0 12 Chloride 107 mmol/L 101-111 Co2 Carbon Dioxide 24 mmol/L 22-32 Anion Gap 4 mmol/L 2-11 Glucose 308 mg/dL High 70-100 Blood Urea Nitrogen 15 mg/dL 6-24 Creatinine 0.94 mg/dL 0.51-0.95 BUN/Creatinine Ratio 16.0 8-20 Calcium 9.2 mg/dL 8.6-10.3 Total Protein 6.8 g/dL 6.4-8.9 Albumin 3.7 g/dL 3.2-5.2 Globulin 3.1 g/dL 2-4 Albumin/Globulin Ratio 1.2 1-3 Total Bilirubin 0.30 mg/dL 0.2-1.0 Alkaline Phosphatase 69 U/L 34-104 Alt 21 U/L 7-52 Ast 13 U/L 13-39 Egfr Non- 61.4 >60 Egfr 78.9 >60 13 Laboratory test finding 02/05/2014 C Reactive Protein 3.20 mg/L < 5.00 14 CBC Auto Diff 02/05/2014 White Blood Count 6.2 10^3/uL 4.8-10.8 Red Blood Count 4.00 10^6/uL 4.0-5.4 Hemoglobin 13.9 g/dL 12.0-16.0 Hematocrit 42 % 35-47 Mean Corpuscular Volume 104 fL High 80-97 Mean Corpuscular Hemoglobin 35 pg High 27-31 Mean Corpuscular HGB Conc 33 g/dL 31-36 Red Cell Distribution Width 13 % 10.5-15 Platelet Count 173 10^3/uL 150-450 Mean Platelet Volume 8 um3 7.4-10.4 Abs Neutrophils 3.2 10^3/uL 1.5-7.7 Abs Lymphocytes 2.3 10^3/uL 1.0-4.8 Abs Monocytes 0.4 10^3/uL 0-0.8 Abs Eosinophils 0.2 10^3/uL 0-0.6 Abs Basophils 0.1 10^3/uL 0-0.2 Abs Nucleated RBC 0 10^3/uL Granulocyte % 51.6 % 38-83 Lymphocyte % 36.6 % 25-47 Monocyte % 7.2 % 1-9 Eosinophil % 3.7 % 0-6 Basophil % 0.9 % 0-2 Nucleated Red Blood Cells % 0 1 [id number] PLEASE FAX RESULTS TO: [id number] 2 Because ethnic data is not always readily available, this report includes an eGFR for both -Americans and non- Americans. The National Kidney Disease Education Program (NKDEP) does not endorse the use of the MDRD equation for patients that are not between the ages of 18 and 70, are , have extremes of body size, muscle mass, or nutritional status, or are non- or non-. According to the National Kidney Foundation, irrespective of diagnosis, the stage of the disease is based on the level of kidney function: Stage Description GFR(mL/min/1.73 m(2)) 1 Kidney damage with normal or decreased GFR 90 2 Kidney damage with mild decrease in GFR 60-89 3 Moderate decrease in GFR 30-59 4 Severe decrease in GFR 15-29 5 Kidney failure <15 (or dialysis) 3 [id number] PLEASE FAX RESULTS TO: [id number] 4 Acute inflammation: >10.00 5 [id number] 6 Because ethnic data is not always readily available, this report includes an eGFR for both -Americans and non- Americans. The National Kidney Disease Education Program (NKDEP) does not endorse the use of the MDRD equation for patients that are not between the ages of 18 and 70, are , have extremes of body size, muscle mass, or nutritional status, or are non- or non-. According to the National Kidney Foundation, irrespective of diagnosis, the stage of the disease is based on the level of kidney function: Stage Description GFR(mL/min/1.73 m(2)) 1 Kidney damage with normal or decreased GFR 90 2 Kidney damage with mild decrease in GFR 60-89 3 Moderate decrease in GFR 30-59 4 Severe decrease in GFR 15-29 5 Kidney failure <15 (or dialysis) 7 [id number] Acute inflammation: >10.00 9 Because ethnic data is not always readily available, this report includes an eGFR for both -Americans and non- Americans. The National Kidney Disease Education Program (NKDEP) does not endorse the use of the MDRD equation for patients that are not between the ages of 18 and 70, are , have extremes of body size, muscle mass, or nutritional status, or are non- or non-. According to the National Kidney Foundation, irrespective of diagnosis, the stage of the disease is based on the level of kidney function: Stage Description GFR(mL/min/1.73 m(2)) 1 Kidney damage with normal or decreased GFR 90 2 Kidney damage with mild decrease in GFR 60-89 3 Moderate decrease in GFR 30-59 4 Severe decrease in GFR 15-29 5 Kidney failure <15 (or dialysis) 10 Because ethnic data is not always readily available, this report includes an eGFR for both -Americans and non- Americans. The National Kidney Disease Education Program (NKDEP) does not endorse the use of the MDRD equation for patients that are not between the ages of 18 and 70, are , have extremes of body size, muscle mass, or nutritional status, or are non- or non-. According to the National Kidney Foundation, irrespective of diagnosis, the stage of the disease is based on the level of kidney function: Stage Description GFR(mL/min/1.73 m(2)) 1 Kidney damage with normal or decreased GFR 90 2 Kidney damage with mild decrease in GFR 60-89 3 Moderate decrease in GFR 30-59 4 Severe decrease in GFR 15-29 5 Kidney failure <15 (or dialysis) 11 Acute inflammation: >10.00 12 Potassium reference range changed effective 01/15/14 13 Because ethnic data is not always readily available, this report includes an eGFR for both -Americans and non- Americans. The National Kidney Disease Education Program (NKDEP) does not endorse the use of the MDRD equation for patients that are not between the ages of 18 and 70, are , have extremes of body size, muscle mass, or nutritional status, or are non- or non-. According to the National Kidney Foundation, irrespective of diagnosis, the stage of the disease is based on the level of kidney function: Stage Description GFR(mL/min/1.73 m(2)) 1 Kidney damage with normal or decreased GFR 90 2 Kidney damage with mild decrease in GFR 60-89 3 Moderate decrease in GFR 30-59 4 Severe decrease in GFR 15-29 5 Kidney failure <15 (or dialysis) 14 Acute inflammation: >10.00 Procedures Date CPT Code Description Status 09/11/2017 98135 EKG Tracing & Interpretation Completed 06/15/2017 74644 Color Flow Doppler/Interp & Reprt Completed 06/15/2017 49297 Pulse Wave/Continuous-Interp.RPT Completed 06/15/2017 63178 Echocardiography, Transesophageal, Real Time W/Image 2D Completed W/W/O M-M 06/12/2017 43748 ECHO Transthorasic Realtime 2D W Doppler & Color Flow Completed Hosp 08/13/2016 97886 EKG Tracing & Interpretation Completed 11/07/2015 78557 ECHO Transthoracic, Real-Time 2D With Doppler And Color Completed Flow 08/09/2015 20175 EKG Tracing & Interpretation Completed 02/01/2015 30688 Treadmill Interp/Report Only Completed 02/01/2015 76564 Stress Test Supervsn W/Out I/R Completed 01/04/2015 91535 EKG Tracing & Interpretation Completed 06/26/2014 09881 ECHO Transthoracic, Real-Time 2D With Doppler And Color Completed Flow 01/09/2014 77125 Holter Monitor Review (24 hr)dr review & interp only Completed 01/02/2014 06127 EKG Tracing & Interpretation Completed 07/29/2013 38090 Rad Shoulder Comp, Min. 2 Views Completed 03/24/2013 01944 Rad Shoulder Comp, Min. 2 Views Completed 02/18/2013 46855 Rad Shoulder Comp, Min. 2 Views Completed 01/27/2013 05642 Rad Shoulder Comp, Min. 2 Views Completed 01/27/2013 73551 Closed trtmt prox humeral fx Completed 01/19/2013 43701 Polysomnography Sleep Staging 4+ Parameters W/Cpap Completed 10/18/2012 30032 Xray Knee 3 Views Completed 10/18/2012 29873 Xray Knee 3 Views Completed 10/18/2012 94836 Rad Exam; Knee, Ap&L Completed Encounters Type Date Location Provider CPT E/M Dx Office Visit 07/22/2017 Mikayla Carter 21934 E11.22 10:50a Infectious Jhonny Tee M.D. B95.62 E11.65 E11.622 L98.491 Z86.14 Office Visit 06/30/2017 9:30a Mikayla Tee 71905 R78.81 Dain Barry M.D. E11.22 B95.62 Z79.2 L98.498 Office Visit 06/16/2017 11:41a Mikayla Carter 20307 E11.622 Dain Tee M.D. L98.491 R78.81 B95.62 Office Visit 06/16/2017 3:55p [facility] Billy Anderson, 52887 R78.81 Hospitalists M.D. E11.9 A41.9 R41.0 Office Visit 06/15/2017 3:55p [facility] Billy Anderson, 19294 R78.81 Hospitalists M.D. E11.9 A41.9 Office Visit 06/14/2017 3:43p [facility] [address] R78.81 Hospitalists R41.0 E11.9 A41.9 Office Visit 06/13/2017 3:23p [facility] [address] R78.81 Hospitalists R41.0 E11.9 A41.9 Office Visit 06/12/2017 3:22p [facility] Billy Anderson, 25850 R78.81 Hospitalists M.D. R41.0 E11.9 A41.9 Office Visit 06/11/2017 3:22p [facility] Billy Anderson, 66911 R78.81 Hospitalists M.D. R41.0 E11.9 Office Visit 06/10/2017 3:21p [facility] Billy Anderson, 48244 A41.9 Hospitalists M.D. R41.0 Z79.899 Office Visit 06/09/2017 3:19p [facility] Roc Power, 78821 A41.9 Hospitalists M.D. R41.0 Z79.899 Office Visit 06/08/2017 3:19p [facility] [address] A41.9 Hospitalists R41.0 Z79.899 Office Visit 12/05/2016 10:00a [facility] Deidre Trent, 34122 G47.33 Services Of Srikanth WIGGINS RN, CERAMIST-ALDO G47.10 F17.210 J39.2 Office Visit 08/29/2016 10:15a [facility] Deidre Trent, 89153 G47.33 Services Of Srikanth WIGGINS RN, [facility] G47.10 F43.10 E66.01 Z68.34 F17.210 Office Visit 08/13/2016 3:20p [facility] Qutaybeh S. Maghaydah, 19026 I10 M.D. F17.210 G47.33 E78.4 R94.31 Office Visit 01/23/2016 10:00a [facility] ALBERTO Nassar 72470 I10 R06.02 I42.9 Z72.0 Office Visit 08/09/2015 9:40a [facility] Qutaybeh S. Maghaydah, 57037 E11.9 M.D. E78.4 G47.33 I10 I42.9 R06.02 Z72.0 Office Visit 01/04/2015 1:40p [facility] Qutaybeh S. Maghaydah, 46053 R07.2 M.D. E11.9 E78.4 R06.02 G47.33 I10 I42.9 Office Visit 12/09/2014 1:19p [facility], Eron Dominguez, 91082 786.51 Hospitalists M.DNuno 584.9 250.00 Office Visit 12/08/2014 1:18p [facility], 24600 786.51 Assoc, Hospitalists M.DNuno 584.9 272.4 250.00 Office Visit 06/08/2014 10:29a [facility], Soni Stallings, 45779 682.9 Hospitalists N.P. 496 250.00 Office Visit 06/07/2014 10:28a [facility], [place] [address] 682.9 Hospitalists 496 250.00 Office Visit 01/02/2014 10:20a [facility] S[facility] Danitzayd, 6[address] 327.23 M.D. 250.40 493.20 401.1 272.2 786.50 786.05 782.3 785.1 305.1 Office Visit 07/29/2013 11:30a [facility] Nayeli Velez M.D. 78529 V54.19 C.M.A. Office Visit 02/24/2013 9:16a [facility] Yoan MARQUEZNuno Freeman, 82473 327.23 M.D. Office Visit 12/03/2012 10:34a [facility] Yoan MARQUEZNuno Freeman, 26803 327.20 M.D. 780.79 333.94 Office Visit 10/18/2012 9:45a [facility] Ismael Weston 92823 844.1 Of Dipak Brody R.P.A.-Tara 726.61 Office Visit 04/02/2012 10:17a [facility] Ass, Billy Anderson, 68676 995.91 Hospitalists Tere 590.11 491.21 250.40 Office Visit 04/01/2012 10:16a [facility] [place], Billy Anderson, 72425 995.91 Hospitalists Tere 590.11 491.21 250.40 Office Visit 03/31/2012 10:16a [facility] [place], Akiko Burrell, 35428 995.91 Hospitalists D.ONuno 590.11 491.21 250.40 Office Visit 03/30/2012 10:15a [facility] Sasha Petty, 92580 995.91 Assoc, Hospitalists Tere 590.11 491.21 250.40 Plan of Care 09/11/2017 - Earnestine Cisse M.D.G47.33 Obstructive sleep apnea (adult) ( pediatric)I10 Essential (primary) hypertensionFollow up:one yr ovE78.4 Other hyperlipidemia
[2017-10-06 10:48] VITALS: BP 116/64
--- NOTE | 2017-10-06 16:50 | ED ---
Back Pain - HPI Summary HPI Summary: Patient is a 61-year-old female who presents to emergency department for evaluation of left upper back pain that started this morning. Patient states she was washing dishes around 0 9:30 when she developed a sharp pain in her left upper back. Pain is worse with movement and improves with rest. She otherwise denies chest pain or shortness of breath. Patient states she was recently "cleared" by cardiology. She is unsure which test she had done by cardiology. Past medical history of smoking, diabetes, high cholesterol, COPD. Symptoms are mild in severity. Movement makes symptoms worse. Rest makes symptoms better. - History of Current Complaint Chief Complaint: EDBackInjuryPain Stated Complaint: BACK PAIN Time Seen by Provider: 10/06/17 10:11 Hx Obtained From: Patient Pain Intensity: 0 Pain Scale Used: 0-10 Numeric - Allergies/Home Medications Allergies/Adverse Reactions: Allergies Allergy/AdvReac Type Severity Reaction Status Date / Time aspirin Allergy See Comment Verified 06/08/17 07:21 camphor [From Vicks Vaporub] Allergy Rash Verified 06/08/17 07:21 eucalyptus Allergy Rash Verified 06/08/17 07:21 [From Vicks Vaporub] menthol [From Vicks Vaporub] Allergy Rash Verified 06/08/17 07:21 petrolatum,white Allergy Rash Verified 06/08/17 07:21 [From Vicks Vaporub] turpentine oil Allergy Rash Verified 06/08/17 07:21 [From Vicks Vaporub] vancomycin Allergy Hives Verified 06/08/17 07:21 PMH/Surg Hx/FS Hx/Imm Hx Previously Healthy: Yes Endocrine/Hematology History: Reports: Hx Diabetes - on lantus Denies: Hx Thyroid Disease Cardiovascular History: Reports: Hx Angina, Hx Hypercholesterolemia, Hx Hypertension Respiratory History: Reports: Hx Asthma, Hx Chronic Obstructive Pulmonary Disease (COPD), Other Respiratory Problems/Disorders - smoker GI History: Reports: Hx Gall Bladder Disease - s/p cholecystectomy, Hx Gastroesophageal Reflux Disease, Other GI Disorders - cholecystectomy Denies: Hx Ulcer History: Reports: Hx Acute Renal Failure, Hx Renal Disease - renal failure in past, Other Problems/Disorders - Chronic Kidney Disease II Musculoskeletal History: Reports: Other Musculoskeletal History - obesity, cellulitis Sensory History: Reports: Hx Contacts or Glasses Denies: Hx Hearing Aid Opthamlomology History: Reports: Hx Contacts or Glasses Psychiatric History: Reports: Hx Anxiety, Hx Depression, Hx Inpatient Treatment , Hx Community Mental Health Tx, Hx Bipolar Disorder - Cancer History Hx Chemotherapy: No Hx Radiation Therapy: No - Surgical History Surgery Procedure, Year, and Place: hernia repair, , gall bladder removal Hx Anesthesia Reactions: No - Immunization History Date of Tetanus Vaccine: Up to date Date of Influenza Vaccine: Fall 2012 Infectious Disease History: No Infectious Disease History: Reports: 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 area dry Denies: Hx Hepatitis, Hx Human Immunodeficiency Virus (HIV), Traveled Outside the [place] in Last 30 Days - Family History Known Family History: Positive: None, Other - No FMHx of breast cancer Family History: R & n/C - Social History Occupation: Unemployed Lives: Alone Alcohol Use: unable to determine Hx Substance Use: No Substance Use Type: Reports: None Hx Tobacco Use: Yes Smoking Status (MU): Light Every Day Tobacco Smoker Type: Cigarettes Amount Used/How Often: 1 pack per day until this year, now only 5 cigarettes per day Length of Time of Smoking/Using Tobacco: 27 years Have You Smoked in the Last Year: Yes Review of Systems Respiratory: Negative Gastrointestinal: Negative Positive: Other - Right upper back pain. Neurological: Negative All Other Systems Reviewed And Are Negative: Yes Physical Exam Triage Information Reviewed: Yes Vital Signs On Initial Exam: Initial Vitals Temp Pulse Resp BP Pulse Ox 97 F 67 17 127/67 97 10/06/17 10:03 10/06/17 10:03 10/06/17 10:03 10/06/17 10:03 10/06/17 10:03 Vital Signs Reviewed: Yes Appearance: Positive: Well-Appearing, Well-Nourished Skin: Positive: Warm, Dry Head/Face: Positive: Normal Head/Face Inspection Eyes: Positive: Normal Neck: Positive: Supple, Nontender Cardiovascular: Positive: Normal, RRR Musculoskeletal: Positive: Other - Pin point tenderness noted just medially of the left scapula. Pain is reproduced with movement of left arm as well. Neurological: Positive: Normal, CN Intact II-III Psychiatric: Positive: Affect/Mood Appropriate Diagnostics - Vital Signs Vital Signs Temp Pulse Resp BP Pulse Ox 10/06/17 10:48 97.9 F 66 16 116/64 96 10/06/17 10:03 97 F 67 17 127/67 97 - Laboratory Lab Statement: Any lab studies that have been ordered have been reviewed, and results considered in the medical decision making process. Back Pain Course/Dx - Course Course Of Treatment: Patient presenting with reproducible upper back pain. Suspect musculoskeletal in nature. Advised gentle massage, warm compresses and Tylenol or Motrin for pain as directed. Patient will follow up with her PCP and return to the ER if symptoms change or worsen. Patient understands and agrees with plan. - Diagnoses Differential Diagnosis/HQI/PQRI: Positive: Strain, Sprain Provider Diagnoses: Muscle spasm, Muscle strain Discharge - Sign-Out/Discharge Documenting (check all that apply): Patient Departure - Discharge Plan Condition: Good Disposition: HOME Patient Education Materials: Muscle Strain (ED), Muscle Spasm (ED) Referrals: Jada Alvarez, [employer] OPERATOR [Primary Care Provider] - Additional Instructions: Schedule a follow up appointment with your PCP Apply warm compresses to back Gentle massage Tylenol or Motrin for pain as directed Return to ER if symptoms change or worsen - Billing Disposition and Condition Condition: GOOD Disposition: Home
== END 2017-10-06 10:48 | disposition home or self-care (01) ==
LOC: ED 10:01
DX: S29.012A Strain of muscle and tendon of back wall of thorax, initial encounter (principal); X58.XXXA Exposure to other specified factors, initial encounter; Y93.G1 Activity, food preparation and clean up; Y92.9 Unspecified place or not applicable; M62.830 Muscle spasm of back; E11.9 Type 2 diabetes mellitus without complications; E78.00 Pure hypercholesterolemia, unspecified; F17.210 Nicotine dependence, cigarettes, uncomplicated; J44.9 Chronic obstructive pulmonary disease, unspecified; Z79.4 Long term (current) use of insulin; Z90.49 Acquired absence of other specified parts of digestive tract; Z88.8 Allergy status to other drugs, medicaments and biological substances; Z88.6 Allergy status to analgesic agent; Z88.3 Allergy status to other anti-infective agents
CPT/HCPCS: 99282

== ENCOUNTER 2017-11-29 03:49 | Emergency (ER) | payer OTHER ==
--- NOTE | 2017-11-29 03:58 | ED ---
Syncope/Near Syncope - HPI Summary HPI Summary: This patient is a 62 year old F BIBA to [facility] with a chief complaint of shoulder pain since 02:00 this morning. The patient reports that she woke up, walked to the bathroom, and had a syncopal episode while on the toilet. She reports she hit her shoulder and face and when she regained consciousness her hand was covered in blood. The patient rates the pain 6/10 in severity. Symptoms aggravated by nothing. Symptoms alleviated by nothing. Patient reports epistaxis, diarrhea, neck pain, nose pain, and nausea. - History Of Current Complaint Hx Obtained From: Patient, EMS Onset/Duration: Sudden Onset, Lasting Hours, Still Present Timing: Hours Context: Unwitnessed, Loss Of Consciousness Activity At Onset: At Rest - on the toilet Associated Head Trauma: Yes Aggravating Factor(s): Nothing Alleviating Factor(s): Nothing Associated Signs And Symptoms: Diarrhea, Other - neck pain, shoulder pain, nausea, nose pain - Allergies/Home Medications Allergies/Adverse Reactions: Allergies Allergy/AdvReac Type Severity Reaction Status Date / Time aspirin Allergy See Comment Verified 06/08/17 07:21 camphor [From Vicks Vaporub] Allergy Rash Verified 06/08/17 07:21 eucalyptus Allergy Rash Verified 06/08/17 07:21 [From Vicks Vaporub] menthol [From Vicks Vaporub] Allergy Rash Verified 06/08/17 07:21 petrolatum,white Allergy Rash Verified 06/08/17 07:21 [From Vicks Vaporub] turpentine oil Allergy Rash Verified 06/08/17 07:21 [From Vicks Vaporub] vancomycin Allergy Hives Verified 06/08/17 07:21 PMH/Surg Hx/FS Hx/Imm Hx Endocrine/Hematology History: Reports: Hx Diabetes - on lantus Denies: Hx Thyroid Disease Cardiovascular History: Reports: Hx Angina, Hx Hypercholesterolemia, Hx Hypertension Respiratory History: Reports: Hx Asthma, Hx Chronic Obstructive Pulmonary Disease (COPD), Other Respiratory Problems/Disorders - smoker GI History: Reports: Hx Gall Bladder Disease - s/p cholecystectomy, Hx Gastroesophageal Reflux Disease, Other GI Disorders - cholecystectomy Denies: Hx Ulcer History: Reports: Hx Acute Renal Failure, Hx Renal Disease - renal failure in past, Other Problems/Disorders - Chronic Kidney Disease II Musculoskeletal History: Reports: Other Musculoskeletal History - obesity, cellulitis Sensory History: Reports: Hx Contacts or Glasses Opthamlomology History: Reports: Hx Contacts or Glasses Psychiatric History: Reports: Hx Anxiety, Hx Depression, Hx Inpatient Treatment , Hx Community Mental Health Tx, Hx Bipolar Disorder - Cancer History Hx Chemotherapy: No Hx Radiation Therapy: No - Surgical History Surgery Procedure, Year, and Place: hernia repair, , gall bladder removal Hx Anesthesia Reactions: No - Immunization History Date of Tetanus Vaccine: Up to date Date of Influenza Vaccine: Fall 2012 Infectious Disease History: Reports: 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 area dry Denies: Hx Hepatitis, Hx Human Immunodeficiency Virus (HIV) - Family History Known Family History: Positive: Other - No FMHx of breast cancer Family History: R & n/C - Social History Alcohol Use: unable to determine Hx Substance Use: No Substance Use Type: Reports: None Hx Tobacco Use: Yes Smoking Status (MU): Light Every Day Tobacco Smoker Type: Cigarettes Amount Used/How Often: 1 pack per day until this year, now only 5 cigarettes per day Length of Time of Smoking/Using Tobacco: 27 years Have You Smoked in the Last Year: Yes Review of Systems Negative: Fever Positive: Epistaxis, Other - nose pain Positive: Diarrhea, Nausea Musculoskeletal: Other - neck pain, shoulder pain Positive: Syncope All Other Systems Reviewed And Are Negative: Yes Physical Exam - Summary Physical Exam Summary: Appearance: Well-appearing, Well-nourished, lying in bed comfortably Skin: Warm, dry, no obvious rash Eyes: sclera anicteric, no conjunctival pallor ENT: mucous membranes moist, pharynx appears normal, Dried blood about nose with no active bleeding, tenderness of nose, no deformity Neck: Supple, nontender Respiratory: Clear to auscultation, no signs of respiratory distress Cardiovascular: Normal S1, S2. No murmurs. Normal distal pulses in tibial and radial bilaterally. Abdomen: Soft, nontender, normal active bowel sounds present Musculoskeletal: Strength/ROM Intact, Soft tissue tenderness to both sides of neck no obvious midline tenderness Neurological: A&Ox3, awake and alert, mentation is normal, speech is fluent and appropriate, GSC 15 Psychiatric: affect is normal, does not appear anxious or depressed Triage Information Reviewed: Yes Vital Signs Reviewed: Yes Diagnostics - Laboratory Result Diagrams: 11/29/17 04:08 11/29/17 04:08 Lab Statement: Any lab studies that have been ordered have been reviewed, and results considered in the medical decision making process. - CT CT Cervical Spine CT Interpretation: No Acute Changes - IMPRESSION: 1. Straightening of the normal cervical lordosis, but no fracture or subluxation in the cervical spine. 2. C5-C6: Mild spinal canal stenosis. Dr. Ray has reviewed this report. CT Interpretation Completed By: Radiologist CT Brain CT Interpretation: No Acute Changes - IMPRESSION: 1. Small hematoma and soft tissue swelling in the left forehead. Intact calvarium. No acute intracranial hemorrhage. 2. Foci of low attenuation in the anguiano radiata bilaterally, which are fairly similar in appearance compared to the prior CT scan on 06/08/2017 and are likely the sequela of chronic small vessel ischemic injury. Dr. Ray has reviewed this report. CT Interpretation Completed By: Radiologist - EKG 03:59 Cardiac Rate: NL - at 75 bpm EKG Rhythm: Sinus Rhythm ST Segment: Normal Ectopy: None EKG Interpretation: NSR at 75 bpm with nml intervals and no ischemic changes Course/Dx Course Of Treatment: This is a 62-year-old woman who suffered a syncopal episode while having a diarrheal out on the toilet the middle of night. She has suffered some minor trauma to her face and head, but her CT scans of the neck and head are negative. Her EKG is normal, and there are no worrisome abnormalities on her blood work other than moderate hyperglycemia. She is a known diabetic. She has had some fluids, and has been able to get up to the commode chair without any significant difficulty, and has not suffered any further syncope. She feels she is stable to go home, and I would agree. - Diagnoses Provider Diagnoses: Cervical sprain, Syncope, Head injury, Diarrhea Discharge - Sign-Out/Discharge Documenting (check all that apply): Patient Departure - Discharge Plan Condition: Good Disposition: HOME Patient Education Materials: Cervical Strain (ED), Syncope (ED), Head Injury ( ED), Acute Diarrhea (ED) Referrals: Juju Nur MD [Primary Care Provider] - - Attestation Statements Document Initiated by Scribe: Yes Documenting Scribe: Mavis Perez Provider For Whom Scribe is Documenting (Include Credential): Seth Ray MD Scribe Attestation: Mavis Turner, scribed for Seth Ray MD on 11/29/17 at 0648.
[2017-11-29] MEDS: NS 0.9% 1000 ML* 2,000 ML IV ONE ×2 (04:05→04:06)
[2017-11-29 04:15] LABS: ABS Basophils 0.1 10^3/ul (0-0.2); ABS Eosinophils 0.1 10^3/ul (0-0.6); ABS Lymphocytes 1.7 10^3/ul (1.0-4.8); ABS Monocytes 0.6 10^3/ul (0-0.8); ABS Nucleated RBC 0 10^3/ul; Eosinophil % 1.2 % (0-6); Hematocrit 46 % (35-47); Hemoglobin 15.8 g/dl (12.0-16.0); Lymphocyte % 15.8 % (25-47); Mean Corpuscular HGB Conc 35 g/dl (31-36); Mean Corpuscular Hemoglobin 35 pg (27-31); Mean Corpuscular Volume 101 fL (80-97); Mean Platelet Volume 8.3 um3 (7.4-10.4); Nucleated Red Blood Cells % 0.1; Platelet Count 210 10^3/ul (150-450); Red Cell Distribution Width 13 % (10.5-15); White Blood Count 10.4 10^3/ul (3.5-10.8)
[2017-11-29 04:31] LABS: EGFR Non-African American 55.1 (>60)
[2017-11-29] MEDS ORDERED: Dextrose 50% Syringe 50 ML* 25 GM/50 ML SYRINGE IV PUSH PRN (05:15)
[2017-11-29] MEDS ORDERED: Insulin LISPRO* 1 UNITS UNIT SUBCUT ONE (05:15)
--- NOTE | 2017-11-29 06:33 | RAD ---
EXAM: CT Head Without Intravenous Contrast CLINICAL HISTORY: 62 years old, female; Fall; Syncope with head injury, neck pain TECHNIQUE: Axial computed tomography images of the head/brain without intravenous contrast. All CT scans at this facility use at least one of these dose optimization techniques: automated exposure control; mA and/or kV adjustment per patient size (includes targeted exams where dose is matched to clinical indication); or iterative reconstruction. COMPARISON: BRAIN WO CT BRAIN WO 06/08/2017 9:25 AM FINDINGS: Brain: There is no evidence for an acute large vessel territorial infarct, intracranial hemorrhage, mass, mass effect, or herniation. There are foci of low attenuation in the anguiano radiata bilaterally, which are fairly similar in appearance compared to the prior CT scan on 06/08/2017 and are likely the sequela of chronic small vessel ischemic injury. Brainstem: Unremarkable. Midline shift: There is no midline shift. Ventricles: Normal. No ventriculomegaly. Bones/joints: The calvarium is intact. Incidental note is made of hypertrophy of the inner table of the frontal calvarium (hyperostosis frontalis interna), which is unchanged compared to the prior CT scan on 06/08/2017. Soft tissues: There is a small hematoma and soft tissue swelling in the left forehead. Sinuses: The imaged portion of the sinuses is clear. Mastoid air cells: There is poor pneumatization of the left mastoid air cells, which are sclerotic. The right mastoid air cells are clear. IMPRESSION: 1. Small hematoma and soft tissue swelling in the left forehead. Intact calvarium. No acute intracranial hemorrhage. 2. Foci of low attenuation in the anguiano radiata bilaterally, which are fairly similar in appearance compared to the prior CT scan on 06/08/2017 and are likely the sequela of chronic small vessel ischemic injury.
--- NOTE | 2017-11-29 06:34 | RAD ---
EXAM: CT Cervical Spine Without Intravenous Contrast CLINICAL HISTORY: 62 years old, female; Fall; Syncope with head and neck injury TECHNIQUE: Axial computed tomography images of the cervical spine without intravenous contrast. All CT scans at this facility use at least one of these dose optimization techniques: automated exposure control; mA and/or kV adjustment per patient size (includes targeted exams where dose is matched to clinical indication); or iterative reconstruction. Coronal and sagittal reformatted images were created and reviewed. COMPARISON: No relevant prior studies available. FINDINGS: Vertebrae: There is straightening of the normal cervical lordosis. The atlantooccipital alignment is normal. The atlantoaxial alignment is normal. There is no fracture or subluxation. The vertebral body heights are preserved. There is no cervical rib. No suspicious osteolytic or osteoblastic lesion is noted. Discs/spinal canal/neural foramina: At the C5-C6 level, there is mild loss of disc height, a 3 mm broad-based posterior disc osteophyte complex, endplate spurs anteriorly, and mild spinal canal stenosis. No spinal canal stenosis or neural foraminal stenosis is identified at the rest of the levels in the cervical spine. Soft tissues: Unremarkable. Lung apices: Clear. Vasculature: There is an aberrant medial course of the common carotid arteries in the prevertebral region at the C3 and C4 levels. IMPRESSION: 1. Straightening of the normal cervical lordosis, but no fracture or subluxation in the cervical spine. 2. C5-C6: Mild spinal canal stenosis.
[2017-11-29 06:58] VITALS: BP 129/66
== END 2017-11-29 07:31 | disposition home or self-care (01) ==
LOC: ED 03:49
CPT/HCPCS: 36415; 70450; 72125; 80053; 80320; 83605; 85025; 93005; G0480

== ENCOUNTER → 2017-12-04 11:35 | Emergency (ER) | payer OTHER ==
[2017-12-04 11:59] VITALS: BP 140/83
--- NOTE | 2017-12-04 14:03 | ED ---
Dizziness - HPI Summary HPI Summary: This patient is a 62 year old F presenting to [facility] with a chief complaint of dizziness since 1000. She states she was asymptomatic for this AM until 1000, when she became dizzy and lightheaded, nearly falling. She does note that sx are better now than they were at onset. She endorses a recent fall 6 days ago on 11/28/17, with associated head injury and left periorbital ecchymosis; she was in [facility] and claims she received a CT brain. The patient endorses sx aggravation with position change. She denies KINNEY, visual changes, neck pain, and back pain. The patient endorses frequency, but denies dysuria and hematuria. PMHx DM, and she endorses medication compliance. - History Of Current Complaint Chief Complaint: EDDizziness Stated Complaint: GENERAL ILLNESS Hx Obtained From: Patient Onset/Duration: Still Present, Suddenly Timing: Constant Severity Initially: Moderate Severity Currently: Mild Character: Lightheaded, Dizzy Aggravating Factor(s): Position Change Alleviating Factor(s): Nothing Associated Signs And Symptoms: Positive: Other:. Negative: Diarrhea, Chest Pain , SOB, Visual Changes, Fever, Blood In Stool - Allergies/Home Medications Allergies/Adverse Reactions: Allergies Allergy/AdvReac Type Severity Reaction Status Date / Time aspirin Allergy See Comment Verified 06/08/17 07:21 camphor [From Vicks Vaporub] Allergy Rash Verified 06/08/17 07:21 eucalyptus Allergy Rash Verified 06/08/17 07:21 [From Vicks Vaporub] menthol [From Vicks Vaporub] Allergy Rash Verified 06/08/17 07:21 petrolatum,white Allergy Rash Verified 06/08/17 07:21 [From Vicks Vaporub] turpentine oil Allergy Rash Verified 06/08/17 07:21 [From Vicks Vaporub] vancomycin Allergy Hives Verified 06/08/17 07:21 PMH/Surg Hx/FS Hx/Imm Hx Endocrine/Hematology History: Reports: Hx Diabetes - on lantus Denies: Hx Thyroid Disease Cardiovascular History: Reports: Hx Angina, Hx Hypercholesterolemia, Hx Hypertension Respiratory History: Reports: Hx Asthma, Hx Chronic Obstructive Pulmonary Disease (COPD), Other Respiratory Problems/Disorders - smoker GI History: Reports: Hx Gall Bladder Disease - s/p cholecystectomy, Hx Gastroesophageal Reflux Disease, Other GI Disorders - cholecystectomy Denies: Hx Ulcer History: Reports: Hx Acute Renal Failure, Hx Renal Disease - renal failure in past, Other Problems/Disorders - Chronic Kidney Disease II Musculoskeletal History: Reports: Other Musculoskeletal History - obesity, cellulitis Sensory History: Reports: Hx Contacts or Glasses Opthamlomology History: Reports: Hx Contacts or Glasses Psychiatric History: Reports: Hx Anxiety, Hx Depression, Hx Inpatient Treatment , Hx Community Mental Health Tx, Hx Bipolar Disorder - Cancer History Hx Chemotherapy: No Hx Radiation Therapy: No - Surgical History Surgery Procedure, Year, and Place: hernia repair, , gall bladder removal Hx Anesthesia Reactions: No - Immunization History Date of Tetanus Vaccine: Up to date Date of Influenza Vaccine: Fall 2012 Infectious Disease History: No Infectious Disease History: Reports: 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 area dry Denies: Hx Hepatitis, Hx Human Immunodeficiency Virus (HIV), Traveled Outside the [place] in Last 30 Days - Family History Known Family History: Positive: Other - No FMHx of breast cancer Family History: R & n/C - Social History Lives: Alone Alcohol Use: unable to determine Hx Substance Use: No Substance Use Type: Reports: None Hx Tobacco Use: Yes Smoking Status (MU): Light Every Day Tobacco Smoker Type: Cigarettes Amount Used/How Often: 1 pack per day until this year, now only 5 cigarettes per day Length of Time of Smoking/Using Tobacco: 27 years Have You Smoked in the Last Year: Yes Review of Systems Negative: Fever Negative: Blurred Vision, Diplopia Negative: Sore Throat, Ear Ache Negative: Chest Pain Negative: Shortness Of Breath Negative: Abdominal Pain, Other - blood in stool Positive: frequency. Negative: dysuria, hematuria Negative: Arthralgia - neck pain, Myalgia - back pain Positive: Bruising - left orbit. Negative: Rash Neurological: Other - Dizziness, lightheadedness Negative: Headache All Other Systems Reviewed And Are Negative: No Physical Exam - Summary Physical Exam Summary: Appearance: Alert, conversive, nontoxic appearing Skin: Warm, dry, no mottling, no rashes, no contusions, ecchymosis to left eye. Open wound to right abd. HEENT: EOMI, PERRL, very dry mucous membranes, ecchymosis to left eye Neck: No masses on the neck, supple Respiratory: Breath sounds present, no rales, no rhonchi. Patient has a wheeze. Cardiovascular: RRR, pulses are symmetrical in both lower and upper extremities Abdomen: Soft, non-tender Bowel Sounds: Present Musculoskeletal: No CVA tenderness, no obvious deformity, moving all extremities in a grossly normal manner Neurological: A&Ox3, CN II-XII Intact, moving all extremities symmetrically Psychiatric: Normal affect and mood Triage Information Reviewed: Yes Vital Signs On Initial Exam: Initial Vitals Temp Pulse Resp BP Pulse Ox 97.8 F 62 16 140/83 97 12/04/17 11:53 12/04/17 11:53 12/04/17 11:53 12/04/17 11:53 12/04/17 11:53 Vital Signs Reviewed: Yes Diagnostics - Vital Signs Vital Signs Temp Pulse Resp BP Pulse Ox 12/04/17 11:53 97.8 F 62 16 140/83 97 - Laboratory Result Diagrams: 12/04/17 14:05 12/04/17 14:05 Lab Statement: Any lab studies that have been ordered have been reviewed, and results considered in the medical decision making process. - CT Brain CT Interpretation: No Acute Changes CT Interpretation Completed By: Radiologist - No acute intracranial pathology. Dr. Tony has reviewed this report. - EKG 1429 Cardiac Rate: Bradycardia - 57 EKG Rhythm: Sinus Bradycardia ST Segment: Non-Specific - in AVF and V2 EKG Interpretation: V3-V6 ST depressions, prolonged QRS, nl axis. Dizzy Course/Dx - Course Course Of Treatment: A 62 y/o F presents to the ED with dizziness. The pt was in the ED 11/29/17 for a fall and associated head injury. Spoke to pt about concussions, she needs to follow up with a concussion clinic if she has persistant KINNEY, difficulty concetrating, or difficulty performing tasks. - Diagnoses Provider Diagnoses: Concussion Discharge - Sign-Out/Discharge Documenting (check all that apply): Patient Departure - discharge - Discharge Plan Condition: Stable Disposition: HOME Patient Education Materials: Concussion (ED) Referrals: Jada Alvarez NP [Primary Care Provider] - Additional Instructions: Follow up with your doctor. If you have persistent dizziness, headaches, or difficulty concentrating or performing tasks, please discuss with your doctor the need for a referral to a concussion clinic. - Attestation Statements Document Initiated by Scribe: Yes Documenting Scribe: Kamlesh Cortes Provider For Whom Scribe is Documenting (Include Credential): Dr. Anna Tony MD Scribe Attestation: IKamlesh, scribed for Dr. Anna Tony MD on 12/04/17 at 1616.
[2017-12-04 14:25] LABS: ABS Basophils 0.1 10^3/ul (0-0.2); ABS Eosinophils 0.4 10^3/ul (0-0.6); ABS Lymphocytes 3.3 10^3/ul (1.0-4.8); ABS Monocytes 0.7 10^3/ul (0-0.8); ABS Neutrophils 3.7 10^3/ul (1.5-7.7); ABS Nucleated RBC 0 10^3/ul; Eosinophil % 4.7 % (0-6); Hematocrit 41 % (35-47); Hemoglobin 14.5 g/dl (12.0-16.0); Lymphocyte % 40.4 % (25-47); Mean Corpuscular HGB Conc 36 g/dl (31-36); Mean Corpuscular Hemoglobin 35 pg (27-31); Mean Corpuscular Volume 99 fL (80-97); Nucleated Red Blood Cells % 0.1; Platelet Count 254 10^3/ul (150-450); Red Blood Count 4.12 10^6/ul (4.00-5.40); Red Cell Distribution Width 13 % (10.5-15); White Blood Count 8.1 10^3/ul (3.5-10.8)
--- NOTE | 2017-12-04 14:40 | RAD ---
INDICATION: Dizziness, recent trauma. COMPARISON: There are no relevant prior studies available for comparison. TECHNIQUE: Contiguous axial sections of the brain were obtained from the skull base to the vertex without contrast. FINDINGS: The ventricles, cisterns and sulci are within normal limits. No significant focal abnormality or mass effect is seen. There is no evidence for hemorrhage. The visualized portion of the paranasal sinuses appear clear. The right mastoid air cells appear clear. There is sclerosis throughout the left mastoid air cells which is unchanged. IMPRESSION: NO EVIDENCE FOR ACUTE INTRACRANIAL ABNORMALITY.
[2017-12-04 14:45] LABS: EGFR Non-African American 65.3 (>60)
== END | disposition home or self-care (01) ==
LOC: ED 11:35
DX: S06.0X9A Concussion with loss of consciousness of unspecified duration, initial encounter (principal); E78.00 Pure hypercholesterolemia, unspecified; I10 Essential (primary) hypertension; I12.9 Hypertensive chronic kidney disease with stage 1 through stage 4 chronic kidney disease, or unspecified chronic kidney disease; E11.22 Type 2 diabetes mellitus with diabetic chronic kidney disease; N18.2 Chronic kidney disease, stage 2 (mild); F17.210 Nicotine dependence, cigarettes, uncomplicated; W19.XXXA Unspecified fall, initial encounter; Y92.9 Unspecified place or not applicable
CPT/HCPCS: 36415; 70450; 80053; 83605; 83690; 83735; 84443; 84484; 85025; 93005; 99282

== ENCOUNTER 2018-02-10 14:43 | Emergency (ER) | payer OTHER ==
[2018-02-10] MEDS ORDERED: Insulin REGULAR(*) 1 UNITS UNIT IV PUSH ONE (14:58)
[2018-02-10] MEDS ORDERED: NS 0.9% 1000 ML* 1,000 ML IV ONE (14:58)
--- NOTE | 2018-02-10 15:02 | ED ---
HPI Diabetic - HPI Summary HPI Summary: This pt is a 62 y/o female, with hx of DM type 2, presenting to [facility] via EMS for high blood glucose today. Pt reports she got blood work done this morning and was noticed her blood glucose was 573. Pt was sent to the ED by her PCP, Jada Alvarez NP. Pt states she had a wound on her abdomen that she has been picking at. Denies fever, chills, chest pain, SOB. Pt did take metformin today 1000 mg. She did not take Insulin today. Pt admits to tobacco use. Denies alcohol or drug use. PMHx includes COPD, hyperlipidemia, DM type 2, kidney failure. - History Of Current Complaint Chief Complaint: EDDiabeticProb Time Seen by Provider: 02/10/18 14:52 Hx Obtained From: Patient Onset/Duration: Sudden Onset, Still Present Timing: Constant Severity Currently: Severe Character: Alert Aggravating: Nothing Alleviating: Nothing Associated Signs & Symptoms: Negative Related History: DM II - Allergies/Home Medications Allergies/Adverse Reactions: Allergies Allergy/AdvReac Type Severity Reaction Status Date / Time aspirin Allergy See Comment Verified 06/08/17 07:21 camphor [From [employer]icks Vaporub] Allergy Rash Verified 06/08/17 07:21 eucalyptus Allergy Rash Verified 06/08/17 07:21 [From [facility]icks Vaporub] menthol [From Vicks Vaporub] Allergy Rash Verified 06/08/17 07:21 petrolatum,white Allergy Rash Verified 06/08/17 07:21 [From [facility]icks Vapor[facility]] turpentine oil Allergy Rash Verified 06/08/17 07:21 [From Vicks Vaporub] vancomycin Allergy Hives Verified 06/08/17 07:21 Home Medications: Home Medications Albuterol Sulfate 0.63 mg INH Q6HR PRN 02/10/18 [History Confirmed 02/10/18] Ammonium Lactate 12% [Lac-Hydrin 12 %] 12 % TOPICAL BID PRN 02/10/18 [History Confirmed 02/10/18] Atorvastatin* [Lipitor*] 40 mg PO DAILY 02/10/18 [History Confirmed 02/10/18] Calcium Carbonate [Calcium] 600 mg PO BID 02/10/18 [History Confirmed 02/10/18] Calcium Carbonate/Vitamin D3 [Calcium/Vitamin D] 1 cap PO DAILY 02/10/18 [ History Confirmed 02/10/18] Esomeprazole(NF) [NexIUM(NF)] 40 mg PO DAILY 02/10/18 [History Confirmed ] Lisinopril TAB* [Prinivil TAB*] 10 mg PO DAILY 02/10/18 [History Confirmed 02/10] Melatonin 1 mg PO BEDTIME 02/10/18 [History Confirmed 02/10/18] Pioglitazone TAB* [Actos TAB*] 30 mg PO DAILY 02/10/18 [History Confirmed ] Polyethylene Glycol 3350* [Miralax*] 17 gm PO DAILY 02/10/18 [History Confirmed 02/10/18] Sulfamethox/Trimethoprim DS* [Bactrim DS 800/160 TAB*] 1 tab PO BID 02/10/18 [ History Confirmed 02/10/18] Tiotropium CAP.INH* [Spiriva CAP.INH*] 1 cap.inh INH DAILY 02/10/18 [History Confirmed 02/10/18] Ziprasidone HCl [Geodon] 40 mg PO DAILY 02/10/18 [History Confirmed 02/10/18] PMH/Surg Hx/FS Hx/Imm Hx Endocrine/Hematology History: Reports: Hx Diabetes - on lantus Denies: Hx Thyroid Disease Cardiovascular History: Reports: Hx Angina, Hx Hypercholesterolemia, Hx Hypertension Respiratory History: Reports: Hx Asthma, Hx Chronic Obstructive Pulmonary Disease (COPD), Other Respiratory Problems/Disorders - smoker GI History: Reports: Hx Gall Bladder Disease - s/p cholecystectomy, Hx Gastroesophageal Reflux Disease, Other GI Disorders - cholecystectomy Denies: Hx Ulcer History: Reports: Hx Acute Renal Failure, Hx Renal Disease - renal failure in past, Other Problems/Disorders - Chronic Kidney Disease II Musculoskeletal History: Reports: Other Musculoskeletal History - obesity, cellulitis Sensory History: Reports: Hx Contacts or Glasses Opthamlomology History: Reports: Hx Contacts or Glasses Psychiatric History: Reports: Hx Anxiety, Hx Depression, Hx Inpatient Treatment , Hx Community Mental Health Tx, Hx Bipolar Disorder - Cancer History Hx Chemotherapy: No Hx Radiation Therapy: No - Surgical History Surgery Procedure, Year, and Place: hernia repair, , gall bladder removal Hx Anesthesia Reactions: No - Immunization History Date of Tetanus Vaccine: Up to date Date of Influenza Vaccine: Fall 2012 Infectious Disease History: Yes Infectious Disease History: Reports: 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 area dry Denies: Hx Hepatitis, Hx Human Immunodeficiency Virus (HIV), Traveled Outside the [place] in Last 30 Days - Family History Known Family History: Positive: Other - No FMHx of breast cancer - Social History Alcohol Use: None Hx Substance Use: No Substance Use Type: Reports: None Hx Tobacco Use: Yes Smoking Status (MU): Light Every Day Tobacco Smoker Type: Cigarettes Amount Used/How Often: 1 pack per day until this year, now only 5 cigarettes per day Length of Time of Smoking/Using Tobacco: 27 years Have You Smoked in the Last Year: Yes Review of Systems Negative: Fever, Chills Negative: Chest Pain Negative: Shortness Of Breath Skin: Other - POS: wound on abdomen All Other Systems Reviewed And Are Negative: Yes Physical Exam - Summary Physical Exam Summary: Appearance: Well appearing, no pain distress Skin: warm, dry, reflects adequate perfusion. Chronic healing wound on abdomen. Head/face: normal Eyes: EOMI, MARY ENT: normal Neck: supple, nontender Respiratory: CTA, breath sounds present Cardiovascular: RRR, pulses symmetrical Abdomen: nontender, soft Musculoskeletal: normal, strength/ROM intact Neuro: normal, sensory motor intact, A&Ox3 Triage Information Reviewed: Yes Vital Signs On Initial Exam: Initial Vitals Temp Pulse Resp BP Pulse Ox 98.0 F 67 16 111/57 96 02/10/18 14:47 02/10/18 14:47 02/10/18 14:47 02/10/18 14:47 02/10/18 14:47 Vital Signs Reviewed: Yes Diagnostics - Vital Signs Vital Signs Temp Pulse Resp BP Pulse Ox 02/10/18 14:47 98.0 F 67 16 111/57 96 - Laboratory Result Diagrams: 02/10/18 15:28 02/10/18 15:28 Lab Statement: Any lab studies that have been ordered have been reviewed, and results considered in the medical decision making process. Re-Evaluation - Re-Evaluation First Eval Re-Evaluation Time: 16:41 Change: Unchanged Comment: Discussed discharge and diagnoses with pt. Diabetic Course/Dx - Course Assessment/Plan: Pt is a 62 y/o female, with hx of DM type 2, presenting to [facility] via EMS for high blood glucose today. Pt reports she got blood work done this morning and was noticed her blood glucose was 573. Pt was sent to the ED by her PCP. Pt states she had a wound on her abdomen that she has been picking at. Denies fever, chills, chest pain, SOB. Pt did take metformin today 1000 mg. She did not take Insulin today. Blood work obtained. In the ED course the pt was given IV fluids, Insulin. Final dx are uncontrolled diabetes and chronic cellulitis. Pt will be discharged home and is agreeable with this plan. - Diagnoses Differential Dx: Diabetic Ketoacidosis, Hyperglycemia Provider Diagnoses: Uncontrolled diabetes mellitus, Chronic cellulitis Discharge - Sign-Out/Discharge Documenting (check all that apply): Patient Departure - Discharge - Discharge Plan Condition: Stable Disposition: HOME Prescriptions: Sulfamethox/Trimethoprim DS* [Bactrim DS 800/160 TAB*] 1 tab PO BID #20 tab Patient Education Materials: Diabetes and Nutrition (ED) Referrals: [facility] [Outside] - 3 Days Jada Alvarez, [employer] INVESTIGATOR [Primary Care Provider] - 3 Days Additional Instructions: RETURN TO THE ED WITH ANY NEW OR WORSENING SYMPTOMS. - Billing Disposition and Condition Condition: STABLE Disposition: Home - Attestation Statements Document Initiated by Allison: Yes Documenting Scribe: Sunitha Wick Provider For Whom Allison is Documenting (Include Credential): Markie Gregg MD Scribe Attestation: Sunitha Turner, scribed for Markie Gregg MD on 02/10/18 at 1712. Scribe Documentation Reviewed: Yes Provider Attestation: The documentation as recorded by the Sunitha miramontes accurately reflects the service I personally performed and the decisions made by , Markie Gregg MD Status of Scribe Document: Viewed
[2018-02-10 15:43] LABS: ABS Basophils 0.1 10^3/ul (0-0.2); ABS Eosinophils 0.3 10^3/ul (0-0.6); ABS Monocytes 0.1 10^3/ul (0-0.8); ABS Neutrophils 2.9 10^3/ul (1.5-7.7); ABS Nucleated RBC 0 10^3/ul; Eosinophil % 4.9 %; Hematocrit 43 % (35-47); Hemoglobin 14.9 g/dl (12.0-16.0); Lymphocyte % 46.3 %; Mean Corpuscular HGB Conc 35 g/dl (31-36); Mean Corpuscular Hemoglobin 35 pg (27-31); Mean Corpuscular Volume 100 fL (80-97); Mean Platelet Volume 8.5 fL (7.4-10.4); Nucleated Red Blood Cells % 0; Platelet Count 223 10^3/ul (150-450); Red Blood Count 4.29 10^6/ul (4.00-5.40); Red Cell Distribution Width 12 % (10.5-15); White Blood Count 6.4 10^3/ul (3.5-10.8)
[2018-02-10 16:01] LABS: EGFR Non-African American 57.7 (>60)
[2018-02-10 17:28] VITALS: BP 132/62
== END 2018-02-10 17:27 | disposition home or self-care (01) ==
LOC: ED 14:43
DX: E11.65 Type 2 diabetes mellitus with hyperglycemia (principal); L03.90 Cellulitis, unspecified
CPT/HCPCS: 36415; 80053; 85025; 99283